=== PATIENT | male | born 1940 | race Caucasian/White ===

== ENCOUNTER 2017-05-17 08:30 | Emergency (ER) | payer OTHER ==
[~2017-05-17] VITALS: Ht 177.8 cm; Wt 114.0 kg
[~2017-05-17 08:30] MED LIST: 1-ME1LIQ PO; LISI-366 PO; MECL25 PO; ONDA1TAB16 PO; OXYB5TAB PO; PRAV40TA2 PO
[2017-05-17 08:34] VITALS: BP 214/96; PULSE 71; RESP 20; TEMP 98.5; O2SAT 95
[2017-05-17] MEDS ORDERED: GLIP5TAB8 PO (08:42)
[2017-05-17] MEDS ORDERED: METF1000 PO (08:42)
[2017-05-17] MEDS ORDERED: TRAZ50TA12 PO (08:42)
[2017-05-17] MEDS ORDERED: DULO1CAP PO (08:42)
[2017-05-17 08:45] VITALS: BP 196/123; PULSE 74; RESP 20; O2SAT 95
[2017-05-17] MEDS ORDERED: VENTAER INH (08:48)
[2017-05-17] MEDS ORDERED: SYMB160A INH (08:48)
[2017-05-17 08:59] VITALS: O2SAT 95
[2017-05-17] MEDS ORDERED: SODIUM CHLORIDE 0.9% FLUSH 10 ML FLUSH IVF PRN (09:00)
--- NOTE | 2017-05-17 09:02 | PD ---
HPI . Shortness of breath Chief Complaint: Respiratory Distress Time Seen by Provider: 08:51 Travel History International Travel<30 days: No Contact w/Intl Traveler<30days: No Traveled to known affect area: No History of Present Illness HPI This patient presents along with his with the chief complaint of shortness of breath. He has COPD. The reports increased dyspnea for the last month. It seems to have been worse for the last few days. He had a particularly bad night last night which is what prompted their visit to us this morning. He has not been running a fever. He has not had a significant cough or sputum production. He has peripheral edema but it is unchanged from previous. His dyspnea is exacerbated by the supine position and is somewhat relieved by sitting upright. Symptoms are moderate. PFSH Past Medical History Cancer: Yes (PROSTATE CANCER) Cardiovascular Problems: Yes High Cholesterol: Yes COPD: Yes Diabetes: Yes Patient Takes Glucophage: Yes Diminished Hearing: Yes (HARD OF HEARING) Hypertension: Yes Respiratory: Yes Immunizations Current: Yes Social History Alcohol Use: No Tobacco Use: Yes (AT LEAST 1 PPD) Substance Use: No Allergies-Medications (Allergen,Severity, Reaction): Coded Allergies: No Known Allergies (Verified Adverse Reaction, Unknown, 05/17/17) Reported Meds & Prescriptions Reported Meds & Active Scripts Active Reported Ventolin Hfa 18 GM Inh (Albuterol Sulfate) 90 Mcg/Act Aer 2 Puff INH Q4-6H PRN Symbicort Inh (Budesonide/Formoterol Fumarate) 160-4.5 Mcg/Act Aero 1 Puff INH Q12HR Duloxetine DR (Duloxetine HCl) 20 Mg Capdr 20 Mg PO DAILY Trazodone (Trazodone HCl) 50 Mg Tab 50 Mg PO HS Glipizide 5 Mg Tab 5 Mg PO BIDAC Take 30 minutes before a meal Metformin (Metformin HCl) 1,000 Mg Tab 1,000 Mg PO BIDPC Review of Systems Except as stated in HPI: all other systems reviewed are Neg General / Constitutional: No: Fever, Chills Cardiovascular: No: Chest Pain or Discomfort Respiratory: Positive: Shortness of Breath, No: Cough Physical Exam Narrative GENERAL: Awake and alert and in no acute distress. Very hard of hearing. SKIN: Warm and dry. Normal color. HEAD: Normocephalic/atraumatic. EYES: Pupils are equal. Extraocular movements are intact. NECK: Normal range of motion. CARDIOVASCULAR: Regular rate and rhythm. Heart sounds are normal. RESPIRATORY: Nonlabored respirations. Oxygen saturation on room air is 95-97%. He had bibasilar rales. No wheezing heard. Good air movement throughout. MUSCULOSKELETAL: Atraumatic. One plus pretibial pitting edema. NEUROLOGICAL: Nonfocal. PSYCHIATRIC: Appropriate mood and affect. Data Data Last Documented VS Vital Signs Date Time Temp Pulse Resp B/P (MAP) Pulse Ox O2 Delivery O2 Flow Rate FiO2 05/17/17 10:15 75 20 208/102 (137) 95 Room Air 05/17/17 08:34 98.5 Orders Orders Complete Blood Count With Diff (05/17/17 08:51) Basic Metabolic Panel (Bmp) (05/17/17 08:51) B-Type Natriuretic Peptide (05/17/17 08:51) Act Partial Throm Time (Ptt) (05/17/17 08:51) Prothrombin Time / Inr (Pt) (05/17/17 08:51) Iv Access Insert/Monitor (05/17/17 08:51) Electrocardiogram (05/17/17 08:51) Ecg Monitoring (05/17/17 08:51) Oximetry (05/17/17 08:51) Chest, Single Ap (05/17/17 08:51) Sodium Chloride 0.9% Flush (Ns Flush) (05/17/17 09:00) Furosemide Inj (Lasix Inj) (05/17/17 09:45) Nitroglycerin 2% Oint (Nitroglycerin 2% (05/17/17 09:45) Labs Laboratory Tests Test 05/17/17 08:55 White Blood Count 8.4 TH/MM3 Red Blood Count 4.87 MIL/MM3 Hemoglobin 14.0 GM/DL Hematocrit 45.1 % Mean Corpuscular Volume 92.5 FL Mean Corpuscular Hemoglobin 28.8 PG Mean Corpuscular Hemoglobin Concent 31.1 % Red Cell Distribution Width 15.7 % Platelet Count 228 TH/MM3 Mean Platelet Volume 8.9 FL Neutrophils (%) (Auto) 77.4 % Lymphocytes (%) (Auto) 14.8 % Monocytes (%) (Auto) 6.7 % Eosinophils (%) (Auto) 0.8 % Basophils (%) (Auto) 0.3 % Neutrophils # (Auto) 6.4 TH/MM3 Lymphocytes # (Auto) 1.3 TH/MM3 Monocytes # (Auto) 0.6 TH/MM3 Eosinophils # (Auto) 0.1 TH/MM3 Basophils # (Auto) 0.0 TH/MM3 CBC Comment AUTO DIFF Differential Comment AUTO DIFF CONFIRMED Prothrombin Time 10.7 SEC Prothromb Time International Ratio 1.1 RATIO Activated Partial Thromboplast Time 28.2 SEC Blood Urea Nitrogen 12 MG/DL Creatinine 0.97 MG/DL Random Glucose 96 MG/DL Calcium Level 8.7 MG/DL Sodium Level 136 MEQ/L Potassium Level 3.8 MEQ/L Chloride Level 100 MEQ/L Carbon Dioxide Level 27.7 MEQ/L Anion Gap 8 MEQ/L Estimat Glomerular Filtration Rate 75 ML/MIN B-Type Natriuretic Peptide 179 PG/ML MDM Medical Decision Making Medical Screen Exam Complete: Yes Emergency Medical Condition: Yes Interpretation(s) EKG shows atrial fibrillation with a controlled rate at 77. No ST segment elevation or depression. Differential Diagnosis Differential diagnosis of dyspnea includes but is not limited to congestive heart failure, pneumonia, wheezing, pneumothorax, pulmonary embolism, COPD exacerbation Narrative Course This patient presents with shortness of breath. He has a history of COPD., His lungs sound pretty clear. He has good air movement throughout. He has by basilar rales. Oxygen was offered but declined. Chest x-ray has been ordered to look for pulmonary infiltrate. BNP and chest x- ray are pending to look for CHF. CBC & BMP Diagram 05/17/17 08:55 Calcium Level 8.7 BNP 179 Last Impressions Chest X-Ray 05/17/17 0851 Signed Impressions: Service Date/Time: Wednesday, May 17, 2017 09:12 - CONCLUSION: Cardiomegaly with interstitial pulmonary congestion and small bilateral effusions Basilar airspace disease greater on the left. Ottoniel Sesay MD The patient was subsequently given Lasix and Nitropaste. He is very insistent that he be allowed to go home. His oxygen saturation on room air has remained in the mid 90s. I think that it is safe for him to go home. I have given him strict instructions to return here if his breathing gets worse again. I will discharge him with prescriptions for Lasix and nitroglycerin patches. I will also give him a prescription for supplemental potassium. He has normal renal function. In addition, this patient is not on an antihypertensive. I have queried up-to-date regarding initial treatment for congestive heart failure. UpToDate recommends an TAVON inhibitor and a beta dayanna. So, I have also prescribed lisinopril and Lopressor. Critical Care Narrative Aggregate critical care time was 35 minutes. Time to perform other separately billable procedures was not included in the critical care time. My time did not include minutes spent treating any other patients simultaneously or on activities that did not directly contribute to the patient's treatment. The services I provided to this patient were to treat and/or prevent clinically significant deterioration due to dyspnea I provided critical care services requiring my management, as noted below: Chart data review, documentation time, medication orders and management, vital sign assessments/reviewing monitor data, ordering and reviewing lab tests, ordering and interpreting/reviewing x-rays and diagnostic studies, care of the patient and discussion of the patient with the admitting physicians Diagnosis Primary Impression: Dyspnea Qualified Codes: R06.00 - Dyspnea, unspecified Additional Impressions: Pulmonary vascular congestion Bilateral pleural effusion Hypertension Qualified Codes: I10 - Essential (primary) hypertension Patient Instructions: General Instructions, Heart Failure (DC) Med/Other Pt SpecificInfo: Prescription(s) given Scripts Metoprolol Tartrate (Lopressor) 50 Mg Tab 50 MG PO DAILY, #30 TAB 0 Refills Prov: Zoë Harris MD 05/17/17 Lisinopril (Lisinopril) 10 Mg Tab 10 MG PO DAILY, #30 TAB 0 Refills Prov: Zoë Harris MD 05/17/17 Nitroglycerin Patch 24 HR (Nitro-Dur Patch 24 HR) 0.4 Mg/Hr Patch 0.4 MG T-DERMAL DAILY for Shortness of Breath, #30 PATCH 0 Refills Prov: Zoë Harris MD 05/17/17 Potassium Chloride ER (Potassium Chloride ER) 20 Meq Tab 20 MEQ PO DAILY for Electrolyte Replacement, #30 TAB 0 Refills Prov: Zoë Harris MD 05/17/17 Furosemide (Lasix) 40 Mg Tab 40 MG PO DAILY, #30 TAB 0 Refills Prov: Zoë Harris MD 05/17/17 Disposition: 01 DISCHARGE HOME Condition: Stable Zoë Harris MD May 17, 2017 09:02
[2017-05-17 09:22] LABS: INTERNATIONAL NORMALIZED RATIO 1.1 RATIO; PROTHROMBIN TIME - PATIENT 10.7 SEC (9.8-11.6)
[2017-05-17 09:33] VITALS: BP 175/121; PULSE 73; RESP 20; O2SAT 95
--- NOTE | 2017-05-17 09:35 | RADRPT ---
EXAM DATE/TIME: 05/17/2017 09:12 [facility] COMPARISON: No previous studies available for comparison. INDICATIONS : Short of breath. MEDICAL HISTORY : Chronic obstructive pulmonary disease. Hypertension Diabetes mellitus type II. Prostate Cancer, s moker SURGICAL HISTORY : None. ENCOUNTER: Initial ACUITY: 3 days PAIN SCORE: 0/10 LOCATION: Bilateral chest FINDINGS: The heart is moderately enlarged. Interstitial prominence is noted throughout both lungs especially i n the bases. There are small bilateral effusions and mild basilar airspace disease. CONCLUSION: Cardiomegaly with interstitial pulmonary congestion and small bilateral effusions Basilar airspace disease greater on the left. Ottoniel Sesay MD on May 17, 2017 at 9:32 Board Certified Radiologist. This report was verified electronically.
[2017-05-17 09:39] LABS: AUTOMATED NEUTROPHIL # 6.4 TH/MM3 (1.8-7.7); BASOPHIL % 0.3 % (0.0-2.0); EOSINOPHIL # 0.1 TH/MM3 (0-0.4); EOSINOPHIL % 0.8 % (0.0-4.0); HEMATOCRIT 45.1 % (39.0-51.0); LYMPH % 14.8 % (9.0-44.0); LYMPHOCYTE # 1.3 TH/MM3 (1.0-4.8); MEAN CELL VOLUME 92.5 FL (80.0-100.0); MEAN CORPUSCULAR HEMOGLOBIN 28.8 PG (27.0-34.0); MEAN CORPUSCULAR HGB CONC 31.1 % (32.0-36.0); MEAN PLATELET VOLUME 8.9 FL (7.0-11.0); MONO % 6.7 % (0.0-8.0); MONOCYTE # 0.6 TH/MM3 (0-0.9); NEUT % 77.4 % (16.0-70.0); PLATELET COUNT 228 TH/MM3 (150-450); RED BLOOD COUNT 4.87 MIL/MM3 (4.50-5.90); RED CELL DISTRIBUTION WIDTH 15.7 % (11.6-17.2); WHITE BLOOD COUNT 8.4 TH/MM3 (4.0-11.0)
[2017-05-17] MEDS ORDERED: NITROGLYCERIN 2% OINT 1 GM PACKET TOPICAL ONE (09:45)
[2017-05-17] MEDS ORDERED: FUROSEMIDE 40 MG/4 ML VIAL IV PUSH ONE (09:45)
[2017-05-17 09:51] LABS: CALCIUM 8.7 MG/DL (8.5-10.1)
[2017-05-17 09:52] LABS: BICARBONATE 27.7 MEQ/L (21.0-32.0)
[2017-05-17 09:55] LABS: CREATININE 0.97 MG/DL (0.60-1.30)
[2017-05-17 10:15] VITALS: BP 208/102; PULSE 75; RESP 20; O2SAT 95
[2017-05-17] MEDS ORDERED: NITR0.4D T-DERMAL (10:30)
[2017-05-17] MEDS ORDERED: FURO1TAB60 PO (10:30)
[2017-05-17] MEDS ORDERED: METO-309 PO (10:30)
[2017-05-17] MEDS ORDERED: POTA-163 PO (10:30)
[2017-05-17] MEDS ORDERED: LISI10TA3 PO (10:30)
--- NOTE | 2017-05-17 18:52 | EKG ---
Date Performed: 05/17/2017 Time Performed: 08:50:06 PTAGE: 76 years EKG: ATRIAL FIBRILLATION NONSPECIFIC ST & T-WAVE ABNORMALITY Compared to previous tracing, the p atient is now in atrial fibrillation ABNORMAL RHYTHM ECG PREVIOUS TRACING : 07/01/2012 11.56 DOCTOR: Mary Vásquez Interpretating Date/Time 05/17/2017 18:51:21
== END 2017-05-17 11:01 | disposition home or self-care (01) ==
LOC: PHED 08:30
DX: R06.00 Dyspnea, unspecified (principal); R09.89 Other specified symptoms and signs involving the circulatory and respiratory systems; J90 Pleural effusion, not elsewhere classified; I48.91 Unspecified atrial fibrillation; I10 Essential (primary) hypertension; J44.9 Chronic obstructive pulmonary disease, unspecified; E11.9 Type 2 diabetes mellitus without complications; Z72.0 Tobacco use
CPT/HCPCS: 71045; 80048; 83880; 85025; 85610; 85730; 93005; 96374; 99285; J1940

== ENCOUNTER 2017-05-20 13:02 | Inpatient (IN) | payer OTHER, MEDICARE ==
[~2017-05-20] VITALS: Ht 177.8 cm; Wt 110.4 kg
[2017-05-20] VITALS (10 sets, daily range): BP systolic 138–199; BP diastolic 67–122; PULSE 2–74; RESP 16–24; TEMP 97.4; O2SAT 90–98
[~2017-05-20 13:02] MED LIST changes: +DULO1CAP PO; +FURO1TAB60 PO; +GLIP5TAB8 PO; +LISI10TA3 PO; +METF1000 PO; +METO-309 PO; +NITR0.4D T-DERMAL; +POTA-163 PO; +SYMB160A INH; +TRAZ50TA12 PO; +VENTAER INH
[2017-05-20] MEDS ORDERED: IPRAAER INH (14:53)
[2017-05-20] MEDS ORDERED: METO50TA PO (14:53)
[2017-05-20] MEDS ORDERED: LISI-515 PO (14:53)
--- NOTE | 2017-05-20 14:59 | PD ---
HPI Chief Complaint: Respiratory Symptoms Time Seen by Provider: 14:35 Travel History International Travel<30 days: No Contact w/Intl Traveler<30days: No Traveled to known affect area: No History of Present Illness HPI 76-year-old male is complaining of shortness of breath. He's been having trouble breathing for several days. He does smoke cigarettes. He is currently smokes about 3 cigarettes a day. He has a history of COPD He was here a few days ago and diagnosed with possible CHF. He has no history of myocardial infarction. He [facility] and he went there yesterday and today adjusted some medications. He is not having any chest pain. His says he has had some slurred speech for the last few weeks. He is very hard of hearing. He has not been able to lay flat. 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) Respiratory: Yes Immunizations Current: Yes Tetanus Vaccination: > 5 Years Influenza Vaccination: No Past Surgical History Eye Surgery: Yes Genitourinary Surgery: Yes (PROSTATE) Social History Alcohol Use: No Tobacco Use: Yes ( 3 CIGS NOW AT LEAST 2 PPD) Substance Use: No Allergies-Medications (Allergen,Severity, Reaction): Coded Allergies: No Known Allergies (Verified Adverse Reaction, Unknown, 05/21/17) Reported Meds & Prescriptions Reported Meds & Active Scripts Active Lasix (Furosemide) 40 Mg Tab 40 Mg PO DAILY Reported Combivent Respimat Inh (Ipratropium-Albuterol Inh) 20-100 Skilled Nursing/Act Aero 1 Puff INH TID Metoprolol Tartrate 50 Mg Tab 50 Mg PO BID Lisinopril 20 Mg Tab 20 Mg PO DAILY Symbicort Inh (Budesonide/Formoterol Fumarate) 160-4.5 Mcg/Act Aero 1 Puff INH Q12HR Duloxetine DR (Duloxetine HCl) 20 Mg Capdr 20 Mg PO DAILY Trazodone (Trazodone HCl) 50 Mg Tab 25 Mg PO HS Glipizide 5 Mg Tab 5 Mg PO BIDAC Take 30 minutes before a meal Metformin (Metformin HCl) 1,000 Mg Tab 1,000 Mg PO BIDPC Review of Systems General / Constitutional: No: Fever, Chills Eyes: No: Diploplia, Blurred Vision HENT: No: Headaches, Vertigo Cardiovascular: Positive: Edema, No: Chest Pain or Discomfort, Palpitations Respiratory: Positive: Cough, Shortness of Breath Gastrointestinal: No: Nausea, Vomiting Musculoskeletal: No: Myalgias, Arthralgias Skin: No Rash, No Itching Neurologic: No: Weakness, Dizziness Endocrine: No: Heat Intolerance, Cold Intolerance Hematologic/Lymphatic: No: Easy Bruising Physical Exam Narrative GENERAL: Well-developed male SKIN: Focused skin assessment warm/dry. HEAD: Atraumatic. Normocephalic. EYES: Pupils equal and round. No scleral icterus. No injection or drainage. ENT: No nasal bleeding or discharge. Mucous membranes pink and moist. NECK: Trachea midline. No JVD. CARDIOVASCULAR: Regular rate and rhythm. No murmur appreciated. RESPIRATORY: No accessory muscle use. He does have scattered rales posteriorly and occasional rhonchi GASTROINTESTINAL: Abdomen soft, non-tender, nondistended. Hepatic and splenic margins not palpable. MUSCULOSKELETAL: No obvious deformities. No clubbing. No cyanosis. No edema. NEUROLOGICAL: Awake and alert. No obvious cranial nerve deficits. Motor grossly within normal limits. Speech is somewhat thick but not obviously slurred. He is very hard of hearing and does not communicate PSYCHIATRIC: Appropriate mood and affect; insight and judgment normal. Data Data Last Documented VS Vital Signs Date Time Temp Pulse Resp B/P (MAP) Pulse Ox O2 Delivery O2 Flow Rate FiO2 05/20/17 16:50 54 22 195/87 (123) 96 Nasal Cannula 2.00 05/20/17 13:14 97.4 Orders Orders Electrocardiogram (05/20/17 14:46) Complete Blood Count With Diff (05/20/17 14:46) Comprehensive Metabolic Panel (05/20/17 14:46) Troponin I (05/20/17 14:46) B-Type Natriuretic Peptide (05/20/17 14:46) Prothrombin Time / Inr (Pt) (05/20/17 14:46) Act Partial Throm Time (Ptt) (05/20/17 14:46) Urinalysis - C+S If Indicated (05/20/17 14:46) Magnesium (Mg) (05/20/17 14:46) Thyroid Stimulating Hormone (05/20/17 14:46) Chest, Single Ap (05/20/17 14:46) Nitroglycerin 2% Oint (Nitroglycerin 2% (05/20/17 15:00) Furosemide Inj (Lasix Inj) (05/20/17 15:00) Albuterol-Ipratropium Neb (Duoneb Neb) (05/20/17 15:00) Ct Brain W/O Iv Contrast(Rout) (05/20/17 15:34) Hydralazine Inj (Apresoline Inj) (05/20/17 17:30) Aspirin (Aspirin) (05/20/17 17:45) Mri Brain W&W/O Contrast (05/20/17 ) Mra Carotids W Contrast (05/20/17 ) Admit Order (Ed Use Only) (05/20/17 17:37) Consult Neurology (05/20/17 ) Labs Laboratory Tests Test 05/20/17 14:45 05/20/17 15:30 White Blood Count 9.8 TH/MM3 Red Blood Count 4.75 MIL/MM3 Hemoglobin 14.0 GM/DL Hematocrit 43.8 % Mean Corpuscular Volume 92.1 FL Mean Corpuscular Hemoglobin 29.4 PG Mean Corpuscular Hemoglobin Concent 31.9 % Red Cell Distribution Width 15.8 % Platelet Count 241 TH/MM3 Mean Platelet Volume 8.8 FL Neutrophils (%) (Auto) 71.9 % Lymphocytes (%) (Auto) 16.6 % Monocytes (%) (Auto) 8.9 % Eosinophils (%) (Auto) 1.0 % Basophils (%) (Auto) 1.6 % Neutrophils # (Auto) 6.9 TH/MM3 Lymphocytes # (Auto) 1.6 TH/MM3 Monocytes # (Auto) 0.9 TH/MM3 Eosinophils # (Auto) 0.1 TH/MM3 Basophils # (Auto) 0.2 TH/MM3 CBC Comment AUTO DIFF Differential Comment AUTO DIFF CONFIRMED Prothrombin Time 10.7 SEC Prothromb Time International Ratio 1.1 RATIO Activated Partial Thromboplast Time 27.3 SEC Blood Urea Nitrogen 18 MG/DL Creatinine 1.20 MG/DL Random Glucose 101 MG/DL Total Protein 7.3 GM/DL Albumin 3.3 GM/DL Calcium Level 8.6 MG/DL Magnesium Level 2.4 MG/DL Alkaline Phosphatase 109 U/L Aspartate Amino Transf (AST/SGOT) 21 U/L Alanine Aminotransferase (ALT/SGPT) 33 U/L Total Bilirubin 0.6 MG/DL Sodium Level 140 MEQ/L Potassium Level 3.5 MEQ/L Chloride Level 102 MEQ/L Carbon Dioxide Level 31.3 MEQ/L Anion Gap 7 MEQ/L Estimat Glomerular Filtration Rate 59 ML/MIN Hemoglobin A1c 6.6 % Troponin I LESS THAN 0.02 NG/ML B-Type Natriuretic Peptide 271 PG/ML Thyroid Stimulating Hormone 3rd Gen 1.330 uIU/ML Urine Color YELLOW Urine Turbidity CLEAR Urine pH 5.5 Urine Specific [place] 1.012 Urine Protein NEG mg/dL Urine Glucose (UA) NEG mg/dL Urine Ketones NEG mg/dL Urine Occult Blood NEG Urine Nitrite NEG Urine Bilirubin NEG Urine Leukocyte Esterase NEG Urine Squamous Epithelial Cells 0-5 /hpf Microscopic Urinalysis Comment CULT NOT INDICATED MDM Medical Decision Making Medical Screen Exam Complete: Yes Emergency Medical Condition: Yes Medical Record Reviewed: Yes Differential Diagnosis Differential includes COPD, CHF, CVA Narrative Course X-ray and lab work have been ordered. Disposition will be determined on the basis of these results by oncoming physician Erik Tapia MD May 20, 2017 14:59
[2017-05-20] MEDS ORDERED: RESP: ALBUTEROL 2.5 MG/IPRATROPIUM 0.5 MG NEB (SCH) NEB ONE (15:00)
[2017-05-20] MEDS ORDERED: FUROSEMIDE 40 MG/4 ML VIAL IV PUSH ONE (15:00)
[2017-05-20] MEDS ORDERED: NITROGLYCERIN 2% OINT 1 GM PACKET TOPICAL ONE (15:00)
[2017-05-20 15:18] LABS: AUTOMATED NEUTROPHIL # 6.9 TH/MM3 (1.8-7.7); BASOPHIL # 0.2 TH/MM3 (0-0.2); BASOPHIL % 1.6 % (0.0-2.0); EOSINOPHIL # 0.1 TH/MM3 (0-0.4); HEMATOCRIT 43.8 % (39.0-51.0); LYMPH % 16.6 % (9.0-44.0); LYMPHOCYTE # 1.6 TH/MM3 (1.0-4.8); MEAN CELL VOLUME 92.1 FL (80.0-100.0); MEAN CORPUSCULAR HEMOGLOBIN 29.4 PG (27.0-34.0); MEAN CORPUSCULAR HGB CONC 31.9 % (32.0-36.0); MEAN PLATELET VOLUME 8.8 FL (7.0-11.0); MONO % 8.9 % (0.0-8.0); MONOCYTE # 0.9 TH/MM3 (0-0.9); NEUT % 71.9 % (16.0-70.0); PLATELET COUNT 241 TH/MM3 (150-450); RED BLOOD COUNT 4.75 MIL/MM3 (4.50-5.90); RED CELL DISTRIBUTION WIDTH 15.8 % (11.6-17.2); WHITE BLOOD COUNT 9.8 TH/MM3 (4.0-11.0)
[2017-05-20 15:46] LABS: CHLORIDE 102 MEQ/L (98-107); SODIUM (NA) 140 MEQ/L (136-145)
[2017-05-20 15:49] LABS: ALBUMIN 3.3 GM/DL (3.4-5.0); BICARBONATE 31.3 MEQ/L (21.0-32.0); CALCIUM 8.6 MG/DL (8.5-10.1)
[2017-05-20 15:50] LABS: BLOOD UREA NITROGEN 18 MG/DL (7-18); GLUCOSE,RANDOM 101 MG/DL (74-106); MAGNESIUM 2.4 MG/DL (1.5-2.5)
[2017-05-20 15:51] LABS: INTERNATIONAL NORMALIZED RATIO 1.1 RATIO; PROTHROMBIN TIME - PATIENT 10.7 SEC (9.8-11.6)
[2017-05-20 15:52] LABS: ALT (GPT) 33 U/L (12-78)
[2017-05-20 15:53] LABS: BILIRUBIN, URINE NEG (NEG); BLOOD, URINE NEG (NEG); GLUCOSE,URINE NEG (NEG); KETONE, URINE NEG (NEG); NITRITE,URINE NEG (NEG); PH, URINE 5.5 (5.0-8.5); URINE LEUKOCYTE ESTERASE NEG (NEG)
[2017-05-20 15:53] LABS: AST (GOT) 21 U/L (15-37); GLOMERULAR FILTRATION RATE 59 ML/MIN (>89)
[2017-05-20 15:54] LABS: TOTAL BILIRUBIN ADULT 0.6 MG/DL (0.2-1.0); TOTAL PROTEIN 7.3 GM/DL (6.4-8.2)
[2017-05-20 15:55] LABS: ALKALINE PHOSPHATASE 109 U/L (45-117)
[2017-05-20 15:58] LABS: TROPONIN I LESS THAN 0.02 NG/ML (0.02-0.05)
[2017-05-20 16:02] LABS: URINE COLOR YELLOW (YELLW/STRAW)
[2017-05-20 16:03] LABS: SQUAMOUS EPITHELIAL CELL URINE 0-5 /hpf (0-5)
--- NOTE | 2017-05-20 16:06 | PD ---
Physical Exam Narrative Received sign out from previous team to follow up labs, CXR and admit. 76yo M with PMH of COPD, possible CHF, irregular heart rate since rheumatic fever as a child presents to the ED with persistent SOB for 5 days. Pt was seen here on 05/17/16 for this and impression of CHF and pt was discharge because he did not want to stay. He went to [facility] yesterday but still not feeling well. also noticed slurred speech for 3 days and it was worst today. Speech is a little better now. Also said he had some visual and auditory hallucinations for the last few days. Pt denies any chest pain, visual changes , n/v, abdominal pain, focal weakness or numbness. Pt was given duonebs, furosemide, nitroglycerin topical by previous team. Labs reviewed, no leukocytosis. BNP mildly elevated at 271. Troponin negative. TSH normal. UA negative. CXR showed mild congestive heart failure. Pt with lower extremity edema and bibasilar crackles. BP is still elevated at 195/87 so hydralazine ordered to lower BP since HR is in the 50s. EKG showed afib in the 50s. CT brain showed low attenuation left frontal lobe and left basal ganglia could be acute/subacute infarct. Recommend contrasted MRI. MRI ordered. Physical exam showed mild dysarthria. Muscle strength 5/5 in all extremities. Sensation intact. NIH stroke scale of 1. Pt given aspirin. Pt admitted for CVA and CHF exacerbation. Data Data Last Documented VS Vital Signs Date Time Temp Pulse Resp B/P (MAP) Pulse Ox O2 Delivery O2 Flow Rate FiO2 05/20/17 16:50 54 22 195/87 (123) 96 Nasal Cannula 2.00 05/20/17 13:14 97.4 Orders Orders Electrocardiogram (05/20/17 14:46) Complete Blood Count With Diff (05/20/17 14:46) Comprehensive Metabolic Panel (05/20/17 14:46) Troponin I (05/20/17 14:46) B-Type Natriuretic Peptide (05/20/17 14:46) Prothrombin Time / Inr (Pt) (05/20/17 14:46) Act Partial Throm Time (Ptt) (05/20/17 14:46) Urinalysis - C+S If Indicated (05/20/17 14:46) Magnesium (Mg) (05/20/17 14:46) Thyroid Stimulating Hormone (05/20/17 14:46) Chest, Single Ap (05/20/17 14:46) Nitroglycerin 2% Oint (Nitroglycerin 2% (05/20/17 15:00) Furosemide Inj (Lasix Inj) (05/20/17 15:00) Albuterol-Ipratropium Neb (Duoneb Neb) (05/20/17 15:00) Ct Brain W/O Iv Contrast(Rout) (05/20/17 15:34) Hydralazine Inj (Apresoline Inj) (05/20/17 17:30) Aspirin (Aspirin) (05/20/17 17:45) Mri Brain W&W/O Contrast (05/20/17 ) Mra Carotids W Contrast (05/20/17 ) Labs Laboratory Tests Test 05/20/17 14:45 05/20/17 15:30 White Blood Count 9.8 TH/MM3 Red Blood Count 4.75 MIL/MM3 Hemoglobin 14.0 GM/DL Hematocrit 43.8 % Mean Corpuscular Volume 92.1 FL Mean Corpuscular Hemoglobin 29.4 PG Mean Corpuscular Hemoglobin Concent 31.9 % Red Cell Distribution Width 15.8 % Platelet Count 241 TH/MM3 Mean Platelet Volume 8.8 FL Neutrophils (%) (Auto) 71.9 % Lymphocytes (%) (Auto) 16.6 % Monocytes (%) (Auto) 8.9 % Eosinophils (%) (Auto) 1.0 % Basophils (%) (Auto) 1.6 % Neutrophils # (Auto) 6.9 TH/MM3 Lymphocytes # (Auto) 1.6 TH/MM3 Monocytes # (Auto) 0.9 TH/MM3 Eosinophils # (Auto) 0.1 TH/MM3 Basophils # (Auto) 0.2 TH/MM3 CBC Comment AUTO DIFF Differential Comment AUTO DIFF CONFIRMED Prothrombin Time 10.7 SEC Prothromb Time International Ratio 1.1 RATIO Activated Partial Thromboplast Time 27.3 SEC Blood Urea Nitrogen 18 MG/DL Creatinine 1.20 MG/DL Random Glucose 101 MG/DL Total Protein 7.3 GM/DL Albumin 3.3 GM/DL Calcium Level 8.6 MG/DL Magnesium Level 2.4 MG/DL Alkaline Phosphatase 109 U/L Aspartate Amino Transf (AST/SGOT) 21 U/L Alanine Aminotransferase (ALT/SGPT) 33 U/L Total Bilirubin 0.6 MG/DL Sodium Level 140 MEQ/L Potassium Level 3.5 MEQ/L Chloride Level 102 MEQ/L Carbon Dioxide Level 31.3 MEQ/L Anion Gap 7 MEQ/L Estimat Glomerular Filtration Rate 59 ML/MIN Troponin I LESS THAN 0.02 NG/ML B-Type Natriuretic Peptide 271 PG/ML Thyroid Stimulating Hormone 3rd Gen 1.330 uIU/ML Urine Color YELLOW Urine Turbidity CLEAR Urine pH 5.5 Urine Specific [place] 1.012 Urine Protein NEG mg/dL Urine Glucose (UA) NEG mg/dL Urine Ketones NEG mg/dL Urine Occult Blood NEG Urine Nitrite NEG Urine Bilirubin NEG Urine Leukocyte Esterase NEG Urine Squamous Epithelial Cells 0-5 /hpf Microscopic Urinalysis Comment CULT NOT INDICATED MDM Supervised Visit with ROSIO: No Interpretation(s) EKG: Afib at 50bpm. Normal axis. Lexie Ingram DO May 20, 2017 16:06
--- NOTE | 2017-05-20 16:33 | RADRPT ---
EXAM DATE/TIME: 05/20/2017 16:02 [facility] COMPARISON: CHEST SINGLE AP, May 17, 2017, 9:12. INDICATIONS : Short of breath. MEDICAL HISTORY : Chronic obstructive pulmonary disease. Hypertension Diabetes mellitus type II. Prostate Cancer, smoke r SURGICAL HISTORY : None. ENCOUNTER: Initial ACUITY: 1 day PAIN SCORE: 0/10 LOCATION: Bilateral chest FINDINGS: A single AP erect portable view of the chest was obtained and again demonstrates moderate cardiomegal y. Hazy perihilar and bibasilar opacities are noted blunting of the right costophrenic angle. Finding s are not significantly changed. The bony thorax is intact. CONCLUSION: No significant change. Findings remain most characteristic of mild congestive heart f ailure. James More MD on May 20, 2017 at 16:30 Board Certified Radiologist. This report was verified electronically.
--- NOTE | 2017-05-20 16:42 | RADRPT ---
EXAM DATE/TIME: 05/20/2017 16:21 [facility] COMPARISON: No previous studies available for comparison. INDICATIONS : Slurred speech, altered mental status x 2 weeks. Evaluate for cerebrovascular accident. RADIATION DOSE: 60.89 CTDIvol (mGy) ; Patient motion MEDICAL HISTORY : Chronic obstructive pulmonary disease. Diabetes mellitus type 2. Congestive heart failure.Hypertensio n. Prostate cancer. SURGICAL HISTORY : None. ENCOUNTER: Initial ACUITY: 2 weeks PAIN SCALE: 0/10 LOCATION: cranial TECHNIQUE: Multiple contiguous axial images were obtained of the head. Using automated exposure control and adj ustment of the mA and/or kV according to patient size, radiation dose was kept as low as reasonably a chievable to obtain optimal diagnostic quality images. DICOM format image data is available electro nically for review and comparison. FINDINGS: CEREBRUM: Area of low attenuation left frontal lobe and basal ganglia on the left. Areas of low-attenuation thr oughout the white matter. Old lacunar infarcts in the basal ganglia. The ventricles are normal for ag e. No evidence of midline shift, mass lesion or hemorrhage. No extra-axial fluid collections are se en. POSTERIOR FOSSA: The cerebellum and brainstem are intact. The 4th ventricle is midline. The cerebellopontine angle i s unremarkable. EXTRACRANIAL: The visualized portion of the orbits is intact. SKULL: The calvaria is intact. No evidence of skull fracture. CONCLUSION: 1. There is a low attenuation left frontal lobe and left basal ganglia could be acute/subacute infarc t. Contrasted MRI recommended. 2. Nonspecific white matter changes. Domenico Winkler MD on May 20, 2017 at 16:38 Board Certified Radiologist. This report was verified electronically.
[2017-05-20] MEDS ORDERED: hydrALAZINE HCL 20 MG/ML VIAL IV PUSH ONE (17:30)
[2017-05-20] MEDS ORDERED: ASPIRIN 325 MG TAB PO ONE (17:45)
[2017-05-20] MEDS ORDERED: DEXTROSE 50% IN WATER 50 ML VIAL(D50) IV PUSH PRN (18:45)
[2017-05-20] MEDS ORDERED: ENALAPRILAT 1.25 MG/ML VIAL IV PUSH PRN (18:45)
[2017-05-20] MEDS ORDERED: RESP: ALBUTEROL 1.25 MG/3 ML NEB (PRN) NEB (18:45)
[2017-05-20] MEDS ORDERED: GLUCAGON 1 MG/ML VIAL OTHER PRN (18:45)
--- NOTE | 2017-05-20 19:00 | HHI.HP ---
[facility] Service [facility] Admission Diagnosis CVA, CHF exacerbation Diagnoses: Chief Complaint: Shortness of breath Travel History International Travel<30 Days: No Contact w/Intl Traveler <30 Da: No Traveled to Known Affected Are: No History of Present Illness This is a 76-year-old male patient with a known medical history of hypertension , COPD, prostate cancer, type 2 diabetes and hyperlipidemia who presented to the ED with increasing shortness of breath and neurological complaints. Patient is lying in bed with apparent shortness of breath and accessory muscle use, at bedside assisting with obtaining of history. Supposedly patient presented to the ED three days ago for complaints of shortness of breath was sent home with Lasix and nitroglycerin. Per , patient has increasingly become short of breath with activity, has overall been more fatigued and sleeping more. States he's been more unstable on his feet. Also complains of frequent hallucinations, seeing and hearing music. Patient does not use home O2. Does have a history of COPD, does admit to smoking five cigarettes per day. Patient goes [facility] [place] [facility] for [facility]. Denies any recent illness including fever, chills, abdominal pain, nausea, vomiting, diarrhea or dysuria. Patient's appetite has been good, although states that she has noticed some coughing with eating. BNP on admission is 271. Chest x-ray reviewed showing mild CHF. Head CT reviewed showing left frontal lobe and left basal ganglia could be acute versus subacute infarct, MRI ordered and pending. Review of Systems Constitutional: COMPLAINS OF: Fatigue, DENIES: Fever, Chills Eyes: DENIES: Blurred vision, Diplopia Respiratory: COMPLAINS OF: Wheezing, Shortness of breath, DENIES: Cough, Sputum production Cardiovascular: DENIES: Chest pain, Palpitations Gastrointestinal: DENIES: Abdominal pain, Black stools, Bloody stools, Constipation, Diarrhea, Nausea, Vomiting Neurologic: COMPLAINS OF: Abnormal gait (unsteady gait), Poor Balance Psychiatric: DENIES: Anxiety Except as stated in HPI: all other systems reviewed are Neg Past Family Social History Past Medical History History of prostate cancer Hypercholesterolemia COPD Type 2 diabetes Rheumatic fever and scarlet fever as a child Hypertension Tobacco abuse Past Surgical History Prostate removal Reported Medications Active Reported Combivent Respimat Inh (Ipratropium-Albuterol Inh) 20-100 Chcf/Act Aero 1 Puff INH TID Metoprolol Tartrate 50 Mg Tab 50 Mg PO BID Lisinopril 20 Mg Tab 20 Mg PO DAILY Symbicort Inh (Budesonide/Formoterol Fumarate) 160-4.5 Mcg/Act Aero 1 Puff INH Q12HR Duloxetine DR (Duloxetine HCl) 20 Mg Capdr 20 Mg PO DAILY Trazodone (Trazodone HCl) 50 Mg Tab 25 Mg PO HS Glipizide 5 Mg Tab 5 Mg PO BIDAC Take 30 minutes before a meal Metformin (Metformin HCl) 1,000 Mg Tab 1,000 Mg PO BIDPC Allergies: Coded Allergies: No Known Allergies (Verified Adverse Reaction, Unknown, 05/20/17) Family History Paternal and maternal medical history significant for hypertension, [place] and stroke. Social History Does admit to smoking five cigarettes per day for the last sixty years. Denies any alcohol use denies any illicit drug use. Physical Exam Vital Signs Vital Signs Date Time Temp Pulse Resp B/P (MAP) Pulse Ox O2 Delivery O2 Flow Rate FiO2 05/20/17 18:07 54 24 138/68 (91) 98 Nasal Cannula 2.00 05/20/17 16:50 54 22 195/87 (123) 96 Nasal Cannula 2.00 05/20/17 15:51 55 22 189/122 (144) 97 Nasal Cannula 2.00 05/20/17 14:36 54 22 195/100 (131) 90 Nasal Cannula 2.00 05/20/17 14:30 55 90 Nasal Cannula 2.00 05/20/17 13:14 97.4 55 16 199/88 (125) 96 Physical Exam GENERAL: This is a well-nourished, well-developed elderly male patient, lying in bed on supplemental O2, with apparent shortness of breath. Use of a sensory muscle use. SKIN: No rashes, ecchymoses or lesions. Warm and dry. HEAD: Atraumatic. Normocephalic. EYES: Pupils equal round and reactive. Extraocular motions intact. No scleral icterus. No injection or drainage. ENT: Nose without bleeding, purulent drainage or septal hematoma. Throat without erythema, tonsillar hypertrophy or exudate. Uvula midline. Airway patent. NECK: Trachea midline. No JVD. Supple. CARDIOVASCULAR: Regular rate and rhythm without murmurs, gallops, or rubs. RESPIRATORY: Severely Diminished breath sounds throughout. No wheezes, rales, or rhonchi. GASTROINTESTINAL: Abdomen soft, non-tender, nondistended. No guarding. Active bowel sounds 4 quadrants MUSCULOSKELETAL: Extremities without clubbing, cyanosis. Bilateral lower extremity edema, 1+. DP pulses present 2+. PVD noted. No joint tenderness, effusion, or edema noted. NEUROLOGICAL: Awake and alert. Cranial nerves II through XII intact. Motor and sensory grossly within normal limits. Five out of 5 muscle strength in all muscle groups. Normal speech. Laboratory Laboratory Tests Test 05/20/17 14:45 05/20/17 15:30 White Blood Count 9.8 Red Blood Count 4.75 Hemoglobin 14.0 Hematocrit 43.8 Mean Corpuscular Volume 92.1 Mean Corpuscular Hemoglobin 29.4 Mean Corpuscular Hemoglobin Concent 31.9 Red Cell Distribution Width 15.8 Platelet Count 241 Mean Platelet Volume 8.8 Neutrophils (%) (Auto) 71.9 Lymphocytes (%) (Auto) 16.6 Monocytes (%) (Auto) 8.9 Eosinophils (%) (Auto) 1.0 Basophils (%) (Auto) 1.6 Neutrophils # (Auto) 6.9 Lymphocytes # (Auto) 1.6 Monocytes # (Auto) 0.9 Eosinophils # (Auto) 0.1 Basophils # (Auto) 0.2 CBC Comment AUTO DIFF Differential Comment AUTO DIFF CONFIRMED Prothrombin Time 10.7 Prothromb Time International Ratio 1.1 Activated Partial Thromboplast Time 27.3 Blood Urea Nitrogen 18 Creatinine 1.20 Random Glucose 101 Total Protein 7.3 Albumin 3.3 Calcium Level 8.6 Magnesium Level 2.4 Alkaline Phosphatase 109 Aspartate Amino Transf (AST/SGOT) 21 Alanine Aminotransferase (ALT/SGPT) 33 Total Bilirubin 0.6 Sodium Level 140 Potassium Level 3.5 Chloride Level 102 Carbon Dioxide Level 31.3 Anion Gap 7 Estimat Glomerular Filtration Rate 59 Troponin I LESS THAN 0.02 B-Type Natriuretic Peptide 271 Thyroid Stimulating Hormone 3rd Gen 1.330 Urine Color YELLOW Urine Turbidity CLEAR Urine pH 5.5 Urine Specific [place] 1.012 Urine Protein NEG Urine Glucose (UA) NEG Urine Ketones NEG Urine Occult Blood NEG Urine Nitrite NEG Urine Bilirubin NEG Urine Leukocyte Esterase NEG Urine Squamous Epithelial Cells 0-5 Microscopic Urinalysis Comment CULT NOT INDICATED Result Diagram: 05/20/17 1445 05/20/17 1445 Imaging Last Impressions Head CT 05/20/17 1534 Signed Impressions: Service Date/Time: May 16:21 - CONCLUSION: 1. There is a low attenuation left frontal lobe and left basal ganglia could be acute/subacute infarct. Contrasted MRI recommended. 2. Nonspecific white matter changes. Domenico Winkler MD Chest X-Ray 05/20/17 1446 Signed Impressions: Service Date/Time: May 16:02 - CONCLUSION: No significant change. Findings remain most characteristic of mild congestive heart failure. James More MD Septic Shock Reassessment Septic shock perfusion: reassessment completed Caprini VTE Risk Assessment Caprini VTE Risk Assessment: Mod/High Risk (score >= 2) Caprini Risk Assessment Model Point Value = 1 Point Value = 2 Point Value = 3 Point Value = 5 Age 41-60 Minor surgery BMI > 25 kg/m2 Swollen legs Varicose veins or History of unexplained or recurrent spontaneous Oral contraceptives or hormone replacement Sepsis (< 1 month) Serious lung disease, including pneumonia (< 1 month) Abnormal pulmonary function Acute myocardial infarction Congestive heart failure (< 1 month) History of inflammatory bowel disease Medical patient at bed rest Age 61-74 Arthroscopic surgery Major open surgery (> 45 min) Laparoscopic surgery (> 45 min) Malignancy Confined to bed (> 72 hours) Immobilizing plaster cast Central venous access Age >= 75 History of VTE Family history of VTE Factor V Leiden Prothrombin [id number] Lupus anticoagulant Anticardiolipin antibodies Elevated serum homocysteine Heparin-induced thrombocytopenia Other congenital or acquired thrombophilia Stroke (< 1 month) Elective arthroplasty Hip, pelvis, or leg fracture Acute spinal cord injury (< 1 month) Prophylaxis Regimen Total Risk Factor Score Risk Level Prophylaxis Regimen 0-1 Low Early ambulation 2 Moderate Order ONE of the following: *Sequential Compression Device (SCD) *Heparin 5000 units SQ BID 3-4 Higher Order ONE of the following medications: *Heparin 5000 units SQ TID *Enoxaparin/Lovenox 40 mg SQ daily (WT < 150 kg, CrCl > 30 mL/min) *Enoxaparin/Lovenox 30 mg SQ daily (WT < 150 kg, CrCl > 10-29 mL/min) *Enoxaparin/Lovenox 30 mg SQ BID (WT < 150 kg, CrCl > 30 mL/min) AND/OR *Sequential Compression Device (SCD) 5 or more Highest Order ONE of the following medications: *Heparin 5000 units SQ TID (Preferred with Epidurals) *Enoxaparin/Lovenox 40 mg SQ daily (WT < 150 kg, CrCl > 30 mL/min) *Enoxaparin/Lovenox 30 mg SQ daily (WT < 150 kg, CrCl > 10-29 mL/min) *Enoxaparin/Lovenox 30 mg SQ BID (WT < 150 kg, CrCl > 30 mL/min) AND *Sequential Compression Device (SCD) Assessment and Plan Problem List: (1) CVA (cerebral vascular accident) ICD Code: I63.9 - Cerebral infarction, unspecified Plan: Patient with new onset hallucinations, increasing fatigue, unstable on feet and generalized weakness. CT reviewed showing left frontal lobe and left basal ganglia could be acute or subacute infarct. MRI ordered and pending. Follow. Consult placed to neurology, appreciate their input and recommendations Allow permissive hypertension. CBC and BMP reviewed, essentially unremarkable. Echo ordered, pending. Follow. PT ordered, appreciate evaluation and recommendations. Lipid panel. (2) COPD with acute exacerbation ICD Code: J44.1 - Chronic obstructive pulmonary disease with (acute) exacerbation Plan: Patient given high-dose steroids NAD. Patient placed on Solu-Medrol 60 mg IV every 12 hours. Supplemental O2 as needed. Asked x-ray reviewed showing mild CHF. Continue home inhalers. Duo nebs scheduled. (3) Type 2 diabetes mellitus ICD Code: E11.9 - Type 2 diabetes mellitus without complications Plan: Accu-Cheks before meals and at bedtime, sliding scale insulin, cover as needed. Monitor blood sugar trends. Hemoglobin A1c ordered follow. (4) Hypertension ICD Code: I10 - Essential (primary) hypertension Plan: Allow permissive hypertension, Vasotec available when necessary if systolic greater than 220. Monitor BP trends. (5) Hyperlipemia ICD Code: E78.5 - Hyperlipidemia, unspecified Plan: Continue home statin. DVT prophylaxis: SCDs. Heparin. (6) CHF (congestive heart failure) ICD Code: I50.9 - Heart failure, unspecified Physician Certification 2 Midnight Certification Type: Admission for Inpatient Services Order for Inpatient Services The services are ordered in accordance with Medicare regulations or non- Medicare payer requirements, as applicable. In the case of services not specified as inpatient-only, they are appropriately provided as inpatient services in accordance with the 2-midnight benchmark. Estimated LOS (days): 3 3 days is the estimated time the patient will need to remain in the hospital, assuming treatment plan goals are met and no additional complications. Post-Hospital Plan: Not yet determined Annel Concepcion May 20, 2017 18:59
[2017-05-20] MEDS ORDERED: GADODIAMIDE PF 287 MG/ML 20 ML VIAL (for RAD MRI) IVCONTRAST ONE (19:32)
--- NOTE | 2017-05-20 20:11 | RADRPT ---
EXAM DATE/TIME: 05/20/2017 19:13 [facility] COMPARISON: MRA CAROTIDS W CONTRAST, May 20, 2017, 19:13. CT BRAIN W/O CONTRAST, May 20, 2017, 16:21. INDICATIONS : CVA. Abnormal CT. CONTRAST: 20 cc Omniscan (gadodiamide) IV MEDICAL HISTORY : Carcinoma, prostate. Hypertension. Diabetes mellitus type 2. SURGICAL HISTORY : Prostatectomy. Cataracts. ENCOUNTER: Initial ACUITY: 1 day PAIN SCORE: 0/10 LOCATION: Head. TECHNIQUE: Multiplanar, multisequence MRI of the brain was performed both prior to and following the administrat ion of paramagnetic contrast. FINDINGS: CEREBRUM: The ventricles are normal for age. No evidence of midline shift, mass lesion, hemorrhage or acute in farction. No extraaxial fluid collections are seen. The pituitary gland and suprasellar cistern are normal in configuration. WHITE MATTER: There is moderate to severe chronic flair signal abnormality of the periventricular white matter. Old basal ganglia lacunar infarcts are present, mostly on the left. POSTERIOR FOSSA: The cerebellum and brainstem are intact. The 4th ventricle is midline. The cerebellopontine angle is unremarkable. The cerebellar tonsils are normal in position. DIFFUSION IMAGING: No focal areas of restricted diffusion are seen. No evidence of acute infarction. EXTRACRANIAL: The visualized portions of the orbits and paranasal sinuses are unremarkable. POST-CONTRAST: No abnormal areas of parenchymal or dural enhancement. No evidence of blood-brain barrier breakdown. CONCLUSION: 1. No acute infarct or other acute intracranial abnormality demonstrated. 2. Chronic white matter changes and old basal ganglia lacunar infarcts. Armen Bloom MD on May 20, 2017 at 20:07 Board Certified Radiologist. This report was verified electronically.
--- NOTE | 2017-05-20 20:16 | RADRPT ---
EXAM DATE/TIME: 05/20/2017 19:13 [facility] COMPARISON: No previous studies available for comparison. INDICATIONS : Stroke. CONTRAST: 20 cc Omniscan (gadodiamide) IV MEDICAL HISTORY : Hypertension. Diabetes mellitus type 2. Carcinoma, prostate. SURGICAL HISTORY : Prostatectomy. Cataracts. ENCOUNTER: Initial ACUITY: 1 day PAIN SCORE: 0/10 LOCATION: Head. Percent stenosis is calculated using the diameter of the stenotic region over the diameter of the nor mal distal internal carotid artery. TECHNIQUE: Bolus infused MRA of the extracranial circulation was performed using a neurovascular coil. Post pro cessing was performed including rotating subvolume maximum intensity projections of each carotid alia ry, rotating full volume maximum intensity projections of both carotid arteries, sagittal and coronal sliding thin slab reformations of each carotid artery, and left oblique sliding thin slab reformatio n through the aortic arch to include the origin of the arch branch vessels. FINDINGS: AORTIC ARCH: There is a three vessel origin of the great vessels from the aorta. No evidence of ostial narrowing. RIGHT CAROTID: There is high-grade but not quite complete occlusion of the right internal carotid artery at the bifu rcation. The right external carotid artery appears to be essentially completely occluded. LEFT CAROTID: The common carotid artery is intact. The carotid bulb has a normal configuration without ulceration or narrowing. The internal carotid artery lumen is smooth without stenosis. The external carotid ar emma is intact. VERTEBRALS: Left vertebral artery is occluded just proximal to the skull base. I believe the right vertebral alia ry may also be occluded near its junction with the basilar. CONCLUSION: 1. 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 2. Occluded right external carotid artery. 3. 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 Contrast enhanced CTA of the carotids is recommended. Armen Bloom MD on May 20, 2017 at 20:09 Board Certified Radiologist. This report was verified electronically.
[2017-05-20] MEDS: RESP: ALBUTEROL 2.5 MG/IPRATROPIUM 0.5 MG NEB (SCH) NEB (20:59)
[2017-05-20] MEDS ORDERED: methylPREDNISolone SOD SUCC 125 MG/2 ML VIAL IV PUSH ONE (21:00)
[2017-05-20] MEDS: INSULIN ASPART SUPPLEMENTAL SCALE SQ SCH (21:00)
[2017-05-20] MEDS ORDERED: ATORVASTATIN 40 MG TAB PO SCH (22:00)
[2017-05-20] MEDS ORDERED: BUDESONIDE-FORMOTEROL 160/4.5 MCG INHALER INH SCH (22:00)
[2017-05-20 22:10] LABS: HEMOGLOBIN A1C 6.6 % (4.3-6.0)
[2017-05-20] MEDS: HEPARIN SODIUM - SQ 10,000 UNITS/ML VIAL SQ SCH (22:26)
[2017-05-20] MEDS ORDERED: methylPREDNISolone SOD SUCC 125 MG/2 ML VIAL IV PUSH SCH (23:00)
[2017-05-21] VITALS: BP 173/79; PULSE 52; RESP 18; TEMP 97.4; O2SAT 94
[2017-05-21] MEDS ORDERED: methylPREDNISolone SOD SUCC 125 MG/2 ML VIAL IV PUSH SCH (01:00)
[2017-05-21 04:00] VITALS: BP 167/80; PULSE 74; RESP 18; TEMP 96.3; O2SAT 94
[2017-05-21] MEDS: HEPARIN SODIUM - SQ 10,000 UNITS/ML VIAL SQ SCH (06:04)
[2017-05-21] MEDS: INSULIN ASPART SUPPLEMENTAL SCALE SQ SCH (07:51)
[2017-05-21] MEDS: RESP: ALBUTEROL 2.5 MG/IPRATROPIUM 0.5 MG NEB (SCH) NEB (08:08)
[2017-05-21] MEDS ORDERED: ASPIRIN 325 MG TAB PO SCH (09:00)
[2017-05-21 10:07] LABS: CHOLESTEROL/ HDL RATIO 2.73 RATIO; HDL CHOLESTEROL 51.5 MG/DL (40.0-60.0)
--- NOTE | 2017-05-21 16:31 | EKG ---
Date Performed: 05/20/2017 Time Performed: 15:38:02 PTAGE: 76 years EKG: ATRIAL FIBRILLATION WITH SLOW VENTRICULAR RESPONSE MODERATE INTRAVENTRICULAR CONDUCTION DEL AY NONSPECIFIC ST & T-WAVE ABNORMALITY ABNORMAL RHYTHM ECG PREVIOUS TRACING : 05/17/2017 08.50 Since previous tracing, no significant change noted DOCTOR: Phillip Duran Interpretating Date/Time 05/21/2017 16:30:45
[2017-05-21] MEDS ORDERED: NITR1SUB3 SL (18:34)
== END 2017-05-21 08:28 | disposition left against medical advice (07) | DRG 65 ==
LOC: PHED 13:02 → PHEDA 17:38 → PH3B 23:02
PROVIDERS: ADMIT Hospitalist; ATTEND Hospitalist
DX: I63.9 Cerebral infarction, unspecified (principal); R44.3 Hallucinations, unspecified; I50.9 Heart failure, unspecified; E11.9 Type 2 diabetes mellitus without complications; Z79.84 Long term (current) use of oral hypoglycemic drugs; J44.1 Chronic obstructive pulmonary disease with (acute) exacerbation; I10 Essential (primary) hypertension; E78.5 Hyperlipidemia, unspecified; F17.210 Nicotine dependence, cigarettes, uncomplicated; H91.90 Unspecified hearing loss, unspecified ear; R47.81 Slurred speech; R29.701 NIHSS score 1; Z85.46 Personal history of malignant neoplasm of prostate
CPT/HCPCS: 70450; 70548; 70553; 71045; 80053; 80061; 81001; 83036; 83735; 83880; 84443; 84484; 85025; 85610; 85730; 93005; 94640; 94664; 96374; A9579; J0360; J1644; J1940; J2930

== ENCOUNTER 2017-05-21 13:35 | Inpatient (IN) | payer OTHER, MEDICARE ==
[~2017-05-21] VITALS: Ht 180.3 cm; Wt 107.6 kg
[2017-05-21] VITALS (7 sets, daily range): BP systolic 137–206; BP diastolic 71–96; PULSE 58–99; RESP 18–29; TEMP 97.4–97.8; O2SAT 96–98
[~2017-05-21 13:35] MED LIST changes: -1-ME1LIQ PO; +IPRAAER INH; -LISI-366 PO; +LISI-515 PO; -LISI10TA3 PO; -MECL25 PO; -METO-309 PO; +METO50TA PO; -NITR0.4D T-DERMAL; -ONDA1TAB16 PO; -OXYB5TAB PO; -POTA-163 PO; -PRAV40TA2 PO; -VENTAER INH
[2017-05-21] MEDS ORDERED: SODIUM CHLOR 0.9% 1000 ML INJ 1,000 ML IV ONE (13:42)
--- NOTE | 2017-05-21 13:52 | PD ---
HPI Chief Complaint: Stroke Alert Time Seen by Provider: 13:40 Travel History International Travel<30 days: No Contact w/Intl Traveler<30days: No Traveled to known affect area: No History of Present Illness HPI The patient is a 76-year-old male who presents to the emergency Department as a stroke alert by EMS. EMS states the patient was just released from [facility] earlier this morning approximately 10 AM. The patient returned home and was doing well until 1 PM when the stated the patient suddenly stopped talking. When EMS arrived they stated the patient was flaccid the upper extremities bilateral, was nonverbal, but would drop. They state the patient had no purposeful movement. Upon arrival patient is grunting , does not follow commands, and appears somewhat confused. No further information is obtainable from the patient secondary to his current medical condition. EMS states the patient's onset of symptoms was at 1 PM. The patient 's blood sugar upon arrival was in the 180s. PFSH Past Medical History Autoimmune Disease: No Heart Rhythm Problems: Yes (as a child) Cancer: Yes (PROSTATE CANCER) Cardiovascular Problems: Yes High Cholesterol: Yes COPD: Yes Diabetes: Yes Diminished Hearing: Yes (HARD OF HEARING) Genitourinary: No Hypertension: Yes Musculoskeletal: Yes Respiratory: Yes Immunizations Current: Yes Sleep Apnea: Yes Past Surgical History Eye Surgery: Yes Genitourinary Surgery: Yes (PROSTATE) Social History Alcohol Use: No Tobacco Use: Yes ( 3 CIGS NOW AT LEAST 2 PPD) Substance Use: No Allergies-Medications (Allergen,Severity, Reaction): Coded Allergies: No Known Allergies (Verified Adverse Reaction, Unknown, 05/21/17) Reported Meds & Prescriptions Reported Meds & Active Scripts Active Lasix (Furosemide) 40 Mg Tab 40 Mg PO DAILY Reported Combivent Respimat Inh (Ipratropium-Albuterol Inh) 20-100 [facility]/Act Aero 1 Puff INH TID Metoprolol Tartrate 50 Mg Tab 50 Mg PO BID Lisinopril 20 Mg Tab 20 Mg PO DAILY Symbicort Inh (Budesonide/Formoterol Fumarate) 160-4.5 Mcg/Act Aero 1 Puff INH Q12HR Duloxetine DR (Duloxetine HCl) 20 Mg Capdr 20 Mg PO DAILY Trazodone (Trazodone HCl) 50 Mg Tab 25 Mg PO HS Glipizide 5 Mg Tab 5 Mg PO BIDAC Take 30 minutes before a meal Metformin (Metformin HCl) 1,000 Mg Tab 1,000 Mg PO BIDPC Review of Systems ROS Limitations: Clinical Condition, Speech Impaired (currently only able to grunt) Except as stated in HPI: all other systems reviewed are Neg Musculoskeletal: Positive: Weakness Neurologic: Positive: Focal Abnormalities, Change in Mentation, Other (aphasia) Physical Exam Exam Limitations: Clinical Condition Narrative GENERAL: Eyes open, nonverbal 76-year-old male who appears his stated age and is in no acute respiratory distress. SKIN: Focused skin assessment warm/dry. HEAD: Atraumatic. Normocephalic. EYES: Pupils equal and round. 3 mm bilateral and reactive. EOMs appear intact. ENT: No nasal bleeding or discharge. Upper dentures in place. NECK: Trachea midline. No JVD. CARDIOVASCULAR: Irregularly irregular. RESPIRATORY: No accessory muscle use. Diminished in the bases. GASTROINTESTINAL: Abdomen soft, non-tender, nondistended. MUSCULOSKELETAL: No obvious deformities. No clubbing. No cyanosis. No edema. NEUROLOGICAL: Eyes open, nonverbal, grunting. Does not follow commands. Withdraws both lower extremities to pain. Initially would not move upper extremities, however, just prior to CT he was grabbing with his left arm. Does not follow commands in regards to extraocular muscle movement, visual youngblood, orientation questions, or movement of the upper or lower extremities. PSYCHIATRIC: Unable to obtain. Data Data Last Documented VS Vital Signs Date Time Temp Pulse Resp B/P (MAP) Pulse Ox O2 Delivery O2 Flow Rate FiO2 05/21/17 15:08 71 22 193/95 (127) 98 Nasal Cannula 2.00 Orders Orders Diet Npo (05/21/17 Lunch) Activity Bed Rest (05/21/17 ) Electrocardiogram (05/21/17 ) I-Stat Creatinine (05/21/17 13:42) I-Stat Profile (05/21/17 13:42) Prothrombin Time / Inr (Pt) (05/21/17 13:42) Act Partial Throm Time (Ptt) (05/21/17 13:42) Complete Blood Count With Diff (05/21/17 13:42) Fibrinogen (05/21/17 13:42) Creatine Kinase (Cpk) (05/21/17 13:42) Troponin I (05/21/17 13:42) Ua Includes Microscopic (05/21/17 13:42) Drug Screen, Random Urine (05/21/17 13:42) Type And Screen (05/21/17 13:42) Ct Brain W/O Iv Contrast(Rout) (05/21/17 ) Cta Brain W Iv Contrast W 3d (05/21/17 13:42) Cta Neck W Iv Contrast W 3d (05/21/17 13:42) Consult Neurology (05/21/17 ) Blood Glucose (05/21/17 13:42) Ecg Monitoring (05/21/17 13:42) Neuro Checks Q2HX12,Q4H (05/21/17 13:42) Nursing Bedside Swallow Assess .ONCE (05/21/17 13:42) Iv Access Insert/Monitor (05/21/17 13:42) NPO (05/21/17 13:42) Oximetry (05/21/17 13:42) Oxygen Administration (05/21/17 13:42) Sodium Chlor 0.9% 1000 Ml Inj (Ns 1000 M (05/21/17 13:42) Resp Oxygen Shmuel C Titrat 1-4 L (05/21/17 13:42) Cath For Specimen (05/21/17 13:42) (Hub Use Only)Inp Phy Cons/Ref (05/21/17 ) Iohexol 350 Inj (Omnipaque 350 Inj) (05/21/17 14:17) Aspirin (Aspirin) (05/21/17 14:45) Admit Order (Ed Use Only) (05/21/17 15:35) Labs Laboratory Tests Test 05/21/17 13:45 White Blood Count 8.3 TH/MM3 Red Blood Count 4.49 MIL/MM3 Hemoglobin 14.3 GM/DL Bedside Hemoglobin 15.3 G/DL Hematocrit 41.8 % Bedside Hematocrit 45.0 % Mean Corpuscular Volume 93.1 FL Mean Corpuscular Hemoglobin 31.9 PG Mean Corpuscular Hemoglobin Concent 34.3 % Red Cell Distribution Width 15.9 % Platelet Count 242 TH/MM3 Mean Platelet Volume 8.4 FL Neutrophils (%) (Auto) 87.8 % Lymphocytes (%) (Auto) 7.2 % Monocytes (%) (Auto) 4.8 % Eosinophils (%) (Auto) 0.0 % Basophils (%) (Auto) 0.2 % Neutrophils # (Auto) 7.3 TH/MM3 Lymphocytes # (Auto) 0.6 TH/MM3 Monocytes # (Auto) 0.4 TH/MM3 Eosinophils # (Auto) 0.0 TH/MM3 Basophils # (Auto) 0.0 TH/MM3 CBC Comment DIFF FINAL Differential Comment Prothrombin Time 10.8 SEC Prothromb Time International Ratio 1.1 RATIO Activated Partial Thromboplast Time 26.4 SEC Fibrinogen 368 mg/dL Bedside Sodium 141 MMOL/L Bedside Potassium 3.5 MMOL/L Bedside Chloride 99 MMOL/L Bedside Blood Urea Nitrogen 21 MG/DL Bedside Creatinine 1.3 MG/DL Bedside Glucose 209 MG/DL Total Creatine Kinase 78 U/L Troponin I LESS THAN 0.02 NG/ML MDM Medical Screen Exam Complete: Yes Emergency Medical Condition: Yes Medical Record Reviewed: Yes EKG Prior to Arrival: No Differential Diagnosis Differential diagnosis includes intracranial hemorrhage, hypertensive encephalopathy, hypertensive emergency, CVA, TIA, seizure, delirium, hyponatremia. Narrative Course IV was established, labs are drawn and sent, and the patient was placed on cardiac telemetry monitoring and continuous pulse oximetry monitoring. The patient went immediately to CT for CT the brain and CTA. I discussed the patient with the neurologist, Dr. Boyle, at 1:47 PM. A complete neurologic evaluation as stroke scale is hard to perform as the patient will not follow commands, appears somewhat confused with possible underlying encephalopathy. However, he is unable to speak, only grunting. Therefore, CTA was performed. I had a discussion with the patient's at 1:56 PM. She states the patient left the hospital this morning AGAINST MEDICAL ADVICE because he saw people with guns and thought the hospital was "out to get him ". She states he was able to talk on the way home, went home and ate a sandwich and then sat on the front porch and his favorite chair. She states when she walked outside she tapped him on this shoulder with seemed to startle him. She states he started moving both arms and it looked like his eyes were rolling into the back of the head. This lasted for several moments and then resolved. She states the patient then asked for glasses because he is having difficulty seeing. She does state he has a hard time hearing people, however, did appear somewhat confused prior to arrival. The patient returned from the CT room, with speak to his , however, would not speak to us. He was moving his extremities, however, they were not purposeful movements, unsure if the patient was having active hallucinations or delusions. As the patient is now speaking to his and his symptoms have improved I don't believe the patient is a candidate for TPA. It appears the patient has has an encephalopathy. The patient was evaluated by Dr. Boyle who also states the patient does not appear to be a TPA candidate. After the patient returned from CT he was more awake, alert, and able to answer questions. He was able to tell me that he was in some type ability and was able to tell me the name. As the patient's symptoms are improving there is no indication for TPA. There is concern that this may be related to encephalopathy versus seizure. Neurology recommends admission. Therefore, the on-call medical service was paged for admission. Stroke Alert NIHSS NIH Stroke Scale Result: 22 NIHSS Time Completed: 13:44 Procedures Interpretation(s) EKG reveals atrial fibrillation with slow ventricular response, rate of 59. Nonspecific T wave changes with inverted T waves noted in lead V6. Laboratory Tests Test 05/21/17 13:45 White Blood Count 8.3 TH/MM3 Red Blood Count 4.49 MIL/MM3 Hemoglobin 14.3 GM/DL Bedside Hemoglobin 15.3 G/DL Hematocrit 41.8 % Bedside Hematocrit 45.0 % Mean Corpuscular Volume 93.1 FL Mean Corpuscular Hemoglobin 31.9 PG Mean Corpuscular Hemoglobin Concent 34.3 % Red Cell Distribution Width 15.9 % Platelet Count 242 TH/MM3 Mean Platelet Volume 8.4 FL Neutrophils (%) (Auto) 87.8 % Lymphocytes (%) (Auto) 7.2 % Monocytes (%) (Auto) 4.8 % Eosinophils (%) (Auto) 0.0 % Basophils (%) (Auto) 0.2 % Neutrophils # (Auto) 7.3 TH/MM3 Lymphocytes # (Auto) 0.6 TH/MM3 Monocytes # (Auto) 0.4 TH/MM3 Eosinophils # (Auto) 0.0 TH/MM3 Basophils # (Auto) 0.0 TH/MM3 CBC Comment DIFF FINAL Differential Comment Prothrombin Time 10.8 SEC Prothromb Time International Ratio 1.1 RATIO Activated Partial Thromboplast Time 26.4 SEC Fibrinogen 368 mg/dL Bedside Sodium 141 MMOL/L Bedside Potassium 3.5 MMOL/L Bedside Chloride 99 MMOL/L Bedside Blood Urea Nitrogen 21 MG/DL Bedside Creatinine 1.3 MG/DL Bedside Glucose 209 MG/DL Total Creatine Kinase 78 U/L Troponin I LESS THAN 0.02 NG/ML Last Impressions Head CTA 05/21/17 1342 Signed Impressions: Service Date/Time: Sunday, May 21, 2017 13:56 - CONCLUSION: 1. Occluded right internal carotid artery with reconstitution of the right anterior circulation through the anterior commuting artery. 2. Small caliber right vertebral artery which may reflect a more proximal flow-limiting lesion. 3. Distal left vertebral artery is patent with dominant left vertebral artery. Brant Reid MD Head CT 05/21/17 0000 Signed Impressions: Service Date/Time: Sunday, May 21, 2017 13:53 - CONCLUSION: Stable brain appearance with no acute intracranial findings. Armen Ontiveros MD Physician Communication Physician Communication The on-call medical service was paged for admission. I discussed the patient with Dr. Torres who agrees with admission. Diagnosis Diagnosis: Primary Impression: Delirium Additional Impressions: Aphasia Encephalopathy Admitting Physician Requests: Admit Condition: Stable Dimitris Calloway MD May 21, 2017 13:52
[2017-05-21 14:02] LABS: AUTOMATED NEUTROPHIL # 7.3 TH/MM3 (1.8-7.7); BASOPHIL % 0.2 % (0.0-2.0); HEMATOCRIT 41.8 % (39.0-51.0); HEMOGLOBIN 14.3 GM/DL (13.0-17.0); LYMPH % 7.2 % (9.0-44.0); LYMPHOCYTE # 0.6 TH/MM3 (1.0-4.8); MEAN CELL VOLUME 93.1 FL (80.0-100.0); MEAN CORPUSCULAR HEMOGLOBIN 31.9 PG (27.0-34.0); MEAN CORPUSCULAR HGB CONC 34.3 % (32.0-36.0); MEAN PLATELET VOLUME 8.4 FL (7.0-11.0); MONO % 4.8 % (0.0-8.0); MONOCYTE # 0.4 TH/MM3 (0-0.9); NEUT % 87.8 % (16.0-70.0); PLATELET COUNT 242 TH/MM3 (150-450); RED BLOOD COUNT 4.49 MIL/MM3 (4.50-5.90); RED CELL DISTRIBUTION WIDTH 15.9 % (11.6-17.2); WHITE BLOOD COUNT 8.3 TH/MM3 (4.0-11.0)
--- NOTE | 2017-05-21 14:12 | RADRPT ---
EXAM DATE/TIME: 05/21/2017 13:53 [facility] COMPARISON: CT BRAIN W/O CONTRAST, May 20, 2017, 16:21. MRI BRAIN W & W/O CONTRAST, May 20, 2017, 19:13 . INDICATIONS : Stroke Alert RADIATION DOSE: 49.68 CTDIvol (mGy) This report was called by Weston Calloway at 1408 MEDICAL HISTORY : Cardiovascular disease. Hypertension. Carcinoma, prostate. SURGICAL HISTORY : None. ENCOUNTER: Initial ACUITY: 1 day PAIN SCALE: 0/10 LOCATION: cranial TECHNIQUE: Multiple contiguous axial images were obtained of the head. Using automated exposure control and adj ustment of the mA and/or kV according to patient size, radiation dose was kept as low as reasonably a chievable to obtain optimal diagnostic quality images. DICOM format image data is available electro nically for review and comparison. 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 Mild periventricular hypodensity, primarily on the left is also unchanged from prior. There is no evidence of intracranial mass or hemorrhage. There is nothing to suggest acute infarction. The ventricles are symmetric and n ormal. No abnormal extra-axial fluid accumulation is identified. Extracranial structures are stable, benign and intact. CONCLUSION: Stable brain appearance with no acute intracranial findings. Armen Ontiveros MD on May 21, 2017 at 14:05 Board Certified Radiologist. This report was verified electronically.
[2017-05-21] MEDS ORDERED: IOHEXOL 350 MG/ML 10 ML VIAL (for RAD DIAG) IVCONTRAST ONE (14:17)
[2017-05-21] MEDS ORDERED: METFORMIN HOLD POST IV CONTRAST SCH (14:17)
[2017-05-21 14:21] LABS: INTERNATIONAL NORMALIZED RATIO 1.1 RATIO; PROTHROMBIN TIME - PATIENT 10.8 SEC (9.8-11.6)
[2017-05-21 14:28] LABS: TROPONIN I LESS THAN 0.02 NG/ML (0.02-0.05)
[2017-05-21] MEDS ORDERED: ASPIRIN 325 MG TAB PO ONE (14:45)
--- NOTE | 2017-05-21 14:45 | RADRPT ---
EXAM DATE/TIME: 05/21/2017 13:56 [facility] COMPARISON: MRA CAROTIDS W CONTRAST, May 20, 2017, 19:13. INDICATIONS : Stroke Alert IV CONTRAST: 90 cc Omnipaque 350 (iohexol) IV ; Cumulative dose for multiple exams. RADIATION DOSE: 49.68 CTDIvol (mGy) MEDICAL HISTORY : Cardiovascular disease. Hypertension. Carcinoma, prostate.diabetes SURGICAL HISTORY : None. ENCOUNTER: Initial ACUITY: 1 day PAIN SCALE: 0/10 LOCATION: cranial TECHNIQUE: Volumetric scanning was performed using a multi-row detector CT scanner. The data was post processed with a variety of visualization algorithms including full volume maximum intensity projection, multi -planar sliding thin slab reformation, curved planar reformation, and surface rendering techniques. Using automated exposure control and adjustment of the mA and/or kV according to patient size, radiat ion dose was kept as low as reasonably achievable to obtain optimal diagnostic quality images. DICO M format image data is available electronically for review and comparison. FINDINGS: Anterior circulation: Right internal carotid artery is occluded. There is reconstitution of the right anterior and middle c erebral arteries through the anterior commuting artery. There is no evidence for aneurysm, vessel vidya ncation or stenosis, and no evidence for vascular malformation. Posterior circulation: Small caliber right vertebral artery distally. Distal left vertebral artery is patent with dominant l eft vertebral artery. Flow extends to the basilar artery which is patent with flow to the posterior cervical arteries bilaterally. There is no evidence for aneurysm, vessel truncation or stenosis, and no evidence for vascular malformation. CONCLUSION: 1. Occluded right internal carotid artery with reconstitution of the right anterior circulation throu gh the anterior commuting artery. 2. Small caliber right vertebral artery which may reflect a more proximal flow-limiting lesion. 3. Distal left vertebral artery is patent with dominant left vertebral artery. Brant [facility] MD on May 21, 2017 at 14:15 Board Certified Radiologist. This report was verified electronically.
--- NOTE | 2017-05-21 15:15 | RADRPT ---
EXAM DATE/TIME: 05/21/2017 13:56 [facility] COMPARISON: CTA BRAIN W 3D RECON, May 21, 2017, 13:56. MRA CAROTIDS W CONTRAST, May 20, 2017, 19:13. INDICATIONS : Stroke Alert IV CONTRAST: 90 cc Omnipaque 350 (iohexol) IV ; Cumulative dose for multiple exams. RADIATION DOSE: 49.68 CTDIvol (mGy) MEDICAL HISTORY : Cardiovascular disease. Hypertension. Carcinoma, prostate. SURGICAL HISTORY : None. ENCOUNTER: Initial ACUITY: 1 day PAIN SCALE: 0/10 LOCATION: cranial Elevated flow velocities and ICA/CCA ratios have been found to correlate with increased degrees of vessel stenosis, calculated as percentage of diameter relative to a normal segment of distal ICA/CCA. TECHNIQUE: Volumetric scanning was performed using a multirow detector CT scanner. The data was post processed with a variety of visualization algorithms including full-volume maximum intensity projection, multip lanar sliding thin-slab reformation, curved-planar reformation, and surface-rendering techniques. Us ing automated exposure control and adjustment of the mA and/or kV according to patient size, radiatio n dose was kept as low as reasonably achievable to obtain optimal diagnostic quality images. DICOM f ormat image data is available electronically for review and comparison. FINDINGS: AORTIC ARCH: There is a three-vessel origin of the great vessels from the aorta. Origin of the left carotid artery is not well demonstrated. However, there is at least likely a mild to moderate stenosis of the carot id origin similar to recent MRA examination. RIGHT CAROTID: The common carotid artery is intact. Internal carotid artery is occluded at the origin. There is mode rate to severe stenosis of the external carotid origin. LEFT CAROTID: Again, origin of the left carotid artery is not well demonstrated but likely [id number] be sten osed. Atherosclerotic plaque in the carotid bulb extending to the origin of the internal carotid alia ry with resultant less than 40% stenosis. Internal carotid artery is otherwise patent to the skull ba se. External carotid artery is patent. VERTEBRALS: Right vertebral artery is occluded at the origin. Left vertebral artery is patent although not well d emonstrated at the origin. There is retrograde opacification of the distal right vertebral artery. CONCLUSION: 1. Occluded right internal carotid artery. 2. Likely [id number], less than 50%, stenosis of the left carotid origin. 3. Less than 40% stenosis of the left internal carotid origin secondary to calcified plaque. 4. Above tandem left carotid stenoses may be hemodynamically significant given single carotid anterio r circulation perfusion. 5. Occluded right vertebral artery. Brant [facility] MD on May 21, 2017 at 14:47 Board Certified Radiologist. This report was verified electronically.
[2017-05-21] MEDS ORDERED: LACTULOSE SYRUP 20 GM/30 ML CUP PO PRN (16:15)
[2017-05-21] MEDS ORDERED: MAGNESIUM HYDROXIDE SUSP 30 ML CUP PO PRN (16:15)
[2017-05-21] MEDS ORDERED: SENNOSIDES 8.6 MG TAB PO PRN (16:15)
[2017-05-21] MEDS ORDERED: BISACODYL 10 MG SUPP RECTAL PRN (16:15)
[2017-05-21] MEDS ORDERED: ACETAMINOPHEN 325 MG TAB PO PRN (16:15)
[2017-05-21] MEDS ORDERED: LORazepam 2 MG/ML VIAL IV PUSH PRN (16:15)
[2017-05-21] MEDS ORDERED: DEXTROSE 50% IN WATER 50 ML VIAL(D50) IV PUSH PRN (16:15)
[2017-05-21] MEDS ORDERED: SODIUM CHLORIDE 0.9% FLUSH 10 ML FLUSH IV FLUSH PRN (16:15)
[2017-05-21] MEDS ORDERED: GLUCAGON 1 MG/ML VIAL OTHER PRN (16:15)
[2017-05-21] MEDS ORDERED: NALOXONE HCL 0.4 MG/ML AMP IV PUSH PRN (16:15)
[2017-05-21] MEDS ORDERED: ONDANSETRON HCL 4 MG/2 ML VIAL IVP PRN (16:15)
--- NOTE | 2017-05-21 16:32 | HHI.HP ---
[facility] Service [place] [place] [facility] Primary Care Physician [facility] Admission Diagnosis stroke alert, encephalopathy, rule out seizure Diagnoses: Travel History International Travel<30 Days: No Contact w/Intl Traveler <30 Da: No Traveled to Known Affected Are: No History of Present Illness 76-year-old male with a past medical history of carotid artery stenosis, hypertension, diabetes mellitus, COPD and history of prostate presents to the emergency department for evaluation of altered mental status and accompanying seizure-like activity. The patient was admitted to [place] yesterday where he was treated for an acute COPD exacerbation and possible CVA. He left AGAINST MEDICAL ADVICE. The patient's reports that for the past 5 days the patient has been having auditory and visual hallucinations intermittently. Brain MRI performed yesterday showed no acute infarct with chronic white matter changes and old basal ganglia lacunar infarcts. The patient reportedly left the hospital because he felt there were individuals there who were "trying to get him." He called his this morning and have her pick him up. She was in the process of attempting to convince her to return to the hospital for further workup when he had an episode of generalized seizure-like activity in his upper extremities. His reports that at that time his eyes were rolled back in his head. There was no accompanying bowel/bladder incontinence. She reports after the episode was over the patient was confused and unable to answer questions appropriately. She called EMS and the patient was brought to the emergency department where a stroke code was called. Review of Systems Denies fever or chills Denies blurry vision, otorrhea, rhinorrhea Denies sore throat, positive cough No chest pain, palpitations, positive shortness of breath, improved from yesterday No abdominal pain Denies constipation/diarrhea/nausea/vomiting Denies muscle pain/weakness No rashes Past Family Social History Past Medical History Carotid artery stenosis Hypertension Type 2 diabetes mellitus History of prostate cancer A. fib not on anticoagulation COPD Past Surgical History Prostatectomy Cataract surgery Reported Medications Reported Meds & Active Scripts Active Lasix (Furosemide) 40 Mg Tab 40 Mg PO DAILY Reported Combivent Respimat Inh (Ipratropium-Albuterol Inh) 20-100 Usp/Act Aero 1 Puff INH TID Metoprolol Tartrate 50 Mg Tab 50 Mg PO BID Lisinopril 20 Mg Tab 20 Mg PO DAILY Symbicort Inh (Budesonide/Formoterol Fumarate) 160-4.5 Mcg/Act Aero 1 Puff INH Q12HR Duloxetine DR (Duloxetine HCl) 20 Mg Capdr 20 Mg PO DAILY Trazodone (Trazodone HCl) 50 Mg Tab 25 Mg PO HS Glipizide 5 Mg Tab 5 Mg PO BIDAC Take 30 minutes before a meal Metformin (Metformin HCl) 1,000 Mg Tab 1,000 Mg PO BIDPC Allergies: Coded Allergies: No Known Allergies (Verified Adverse Reaction, Unknown, 05/21/17) Family History Both parents with CT. Father from AAA rupture. Social History Has smoked since the age of 19, currently smoking 5 cigarettes per day. Denies alcohol, illicit drugs. Physical Exam Vital Signs Vital Signs Date Time Temp Pulse Resp B/P (MAP) Pulse Ox O2 Delivery O2 Flow Rate FiO2 05/21/17 15:08 71 22 193/95 (127) 98 Nasal Cannula 2.00 05/21/17 14:11 99 Nasal Cannula 2.00 05/21/17 14:10 58 22 201/93 (129) 96 Nasal Cannula 2.00 05/21/17 14:05 58 20 98 Room Air 05/21/17 13:38 70 20 184/88 (120) 96 05/21/17 13:35 97 Nasal Cannula 3.00 05/21/17 13:35 97 3.00 Physical Exam GENERAL: male lying in bed SKIN: No rashes, ecchymoses or lesions. Cool and dry. HEAD: Atraumatic. Normocephalic. No temporal or scalp tenderness. EYES: Pupils equal round and reactive. Extraocular motions intact. No scleral icterus. No injection or drainage. ENT: Nose without bleeding, purulent drainage or septal hematoma. Throat without erythema, tonsillar hypertrophy or exudate. Uvula midline. Airway patent. NECK: Trachea midline. No JVD or lymphadenopathy. Supple, nontender, no meningeal signs. CARDIOVASCULAR: Irregularly irregular rhythm without murmurs, gallops, or rubs. RESPIRATORY: Clear to auscultation. Breath sounds equal bilaterally. No wheezes , rales, or rhonchi. GASTROINTESTINAL: Abdomen soft, non-tender, nondistended. No hepato-splenomegaly , or palpable masses. No guarding. MUSCULOSKELETAL: Extremities without clubbing, cyanosis. Trace bilateral lower extremity edema. No calf tenderness. NEUROLOGICAL: Awake and alert. Cranial nerves II through XII intact. Motor and sensory grossly within normal limits. Five out of 5 muscle strength in all muscle groups. Normal speech. A&O 3. Laboratory Laboratory Tests Test 05/21/17 13:45 White Blood Count 8.3 Red Blood Count 4.49 Hemoglobin 14.3 Bedside Hemoglobin 15.3 Hematocrit 41.8 Bedside Hematocrit 45.0 Mean Corpuscular Volume 93.1 Mean Corpuscular Hemoglobin 31.9 Mean Corpuscular Hemoglobin Concent 34.3 Red Cell Distribution Width 15.9 Platelet Count 242 Mean Platelet Volume 8.4 Neutrophils (%) (Auto) 87.8 Lymphocytes (%) (Auto) 7.2 Monocytes (%) (Auto) 4.8 Eosinophils (%) (Auto) 0.0 Basophils (%) (Auto) 0.2 Neutrophils # (Auto) 7.3 Lymphocytes # (Auto) 0.6 Monocytes # (Auto) 0.4 Eosinophils # (Auto) 0.0 Basophils # (Auto) 0.0 CBC Comment DIFF FINAL Differential Comment Prothrombin Time 10.8 Prothromb Time International Ratio 1.1 Activated Partial Thromboplast Time 26.4 Fibrinogen 368 Bedside Sodium 141 Bedside Potassium 3.5 Bedside Chloride 99 Bedside Blood Urea Nitrogen 21 Bedside Creatinine 1.3 Bedside Glucose 209 Total Creatine Kinase 78 Troponin I LESS THAN 0.02 Result Diagram: 05/21/17 5310 Caprini VTE Risk Assessment Caprini VTE Risk Assessment: Mod/High Risk (score >= 2) Caprini Risk Assessment Model Point Value = 1 Point Value = 2 Point Value = 3 Point Value = 5 Age 41-60 Minor surgery BMI > 25 kg/m2 Swollen legs Varicose veins or History of unexplained or recurrent spontaneous Oral contraceptives or hormone replacement Sepsis (< 1 month) Serious lung disease, including pneumonia (< 1 month) Abnormal pulmonary function Acute myocardial infarction Congestive heart failure (< 1 month) History of inflammatory bowel disease Medical patient at bed rest Age 61-74 Arthroscopic surgery Major open surgery (> 45 min) Laparoscopic surgery (> 45 min) Malignancy Confined to bed (> 72 hours) Immobilizing plaster cast Central venous access Age >= 75 History of VTE Family history of VTE Factor V Leiden Prothrombin [id number] Lupus anticoagulant Anticardiolipin antibodies Elevated serum homocysteine Heparin-induced thrombocytopenia Other congenital or acquired thrombophilia Stroke (< 1 month) Elective arthroplasty Hip, pelvis, or leg fracture Acute spinal cord injury (< 1 month) Prophylaxis Regimen Total Risk Factor Score Risk Level Prophylaxis Regimen 0-1 Low Early ambulation 2 Moderate Order ONE of the following: *Sequential Compression Device (SCD) *Heparin 5000 units SQ BID 3-4 Higher Order ONE of the following medications: *Heparin 5000 units SQ TID *Enoxaparin/Lovenox 40 mg SQ daily (WT < 150 kg, CrCl > 30 mL/min) *Enoxaparin/Lovenox 30 mg SQ daily (WT < 150 kg, CrCl > 10-29 mL/min) *Enoxaparin/Lovenox 30 mg SQ BID (WT < 150 kg, CrCl > 30 mL/min) AND/OR *Sequential Compression Device (SCD) 5 or more Highest Order ONE of the following medications: *Heparin 5000 units SQ TID (Preferred with Epidurals) *Enoxaparin/Lovenox 40 mg SQ daily (WT < 150 kg, CrCl > 30 mL/min) *Enoxaparin/Lovenox 30 mg SQ daily (WT < 150 kg, CrCl > 10-29 mL/min) *Enoxaparin/Lovenox 30 mg SQ BID (WT < 150 kg, CrCl > 30 mL/min) AND *Sequential Compression Device (SCD) Assessment and Plan Assessment and Plan Assessment/plan: 1. Possible seizure/hallucinations/altered mental status Patient with seizure-like activity and postictal state following the episode MRI brain from yesterday showed no acute infarct Neurology consulted, appreciate recommendations EEG pending Ativan prn Seizure precautions 2. Carotid artery stenosis Neck CTA showed included right internal carotid artery with stenosis of the left internal carotid and included right vertebral artery Vascular surgery consulted, appreciate recommendations 3. Atrial fibrillation Patient not on anticoagulation Echo pending 4. Diabetes mellitus SSI Monitor blood glucose Holding home metformin and glyburide 5. COPD DuoNeb's Continue inhaled steroids once medications reconciled 6. Hypertension Continue home antihypertensives once medications reconciled Monitor blood pressure FEN Heart healthy diet after bedside swallow eval NS at 70 cc/hr Electrolytes: monitor and replete prn Heparin Physician Certification 2 Midnight Certification Type: Admission for Inpatient Services Order for Inpatient Services The services are ordered in accordance with Medicare regulations or non- Medicare payer requirements, as applicable. In the case of services not specified as inpatient-only, they are appropriately provided as inpatient services in accordance with the 2-midnight benchmark. Estimated LOS (days): 2 2 days is the estimated time the patient will need to remain in the hospital, assuming treatment plan goals are met and no additional complications. Post-Hospital Plan: Not yet determined Rebeka Torres MD May 21, 2017 16:31
[2017-05-21] MEDS: INSULIN ASPART SUPPLEMENTAL SCALE SQ SCH ×2 (17:00→21:28)
[2017-05-21] MEDS: SODIUM CHLOR 0.9% 1000 ML INJ 1,000 ML IV SCH (18:26)
[2017-05-21] MEDS: HEPARIN SODIUM - SQ 10,000 UNITS/ML VIAL SQ SCH (18:26)
[2017-05-21] MEDS ORDERED: NITR1SUB3 SL (18:34)
--- NOTE | 2017-05-21 20:29 | MB ---
cc: MD [facility] DATE OF CONSULTATION: 05/21/2017. REASON FOR CONSULTATION: Right carotid artery occlusion, left stenosis, COPD, respiratory failure, hypertension, diabetes mellitus. CRITICAL CARE TIME SPENT: Critical care time forty (40) minutes. HISTORY OF PRESENT ILLNESS: This 76-year-old male with a complex past medical history came to the emergency room for evaluation of altered mental status and seizure-like activity. The patient was flailing around at home and was disoriented and then was brought to this emergency room. It should be noted that the patient was evaluated yesterday in [facility] for COPD exacerbation and possible CVA however left against medical advice. The patient is very noncompliant with care and noncompliant with social issues in general according to his family. His states that he might have had seizure-like activity at home. The patient was evaluated as a stroke alert, although there is right now no evidence of the same. PAST MEDICAL HISTORY: 1. Hypertension. 2. COPD. 3. Diabetes mellitus. 4. Known carotid stenosis for which the patient refused therapy. 5. Atrial fibrillation, not treated with anticoagulation. PAST SURGICAL HISTORY: 1. Prostatectomy about ten years ago. 2. Prostate cancer. 3. Cataract surgery. MEDICATIONS: Medications can be found on the record; however, the patient is taking those with variable compliance. SOCIAL HISTORY: The patient smokes about half-a-pack a day and has smoked since the age of 17. PHYSICAL EXAMINATION: GENERAL: The physical examination reveals a 76-year-old male. HEAD, EYES, EARS, NOSE, THROAT: Normocephalic. No trauma to the head. Pupils equal and reactive. Extraocular muscles intact. The patient is very hard of hearing. NECK: The neck is supple. Bilateral carotid pulses and actually, no bruits. It is very hard to detect pulses in the upper part of the neck, but in the lower part they appear to be normal. CHEST: Bilateral breath sounds decreased over both lung youngblood consistent with severe COPD. The patient is retracting chest wall musculature and breathing with accessory muscles. HEART: Irregular rhythm. He is in atrial fibrillation at about 60 or so. ABDOMEN: Soft. Active bowel sounds. No rebound. No guarding. No masses. EXTREMITIES: The patient has bilateral femoral pulses to palpation but these are not very strong and distal pulses cannot be palpated in the popliteal fossa; however, are present on Doppler study. Dorsalis pedis and posterior tibial only by Doppler. Some swelling noted in lower extremities and pretibial area. BACK: The back is normal. IMPRESSION AND RECOMMENDATIONS: I reviewed laboratory and diagnostic procedures. This patient is a noncompliant with multiple medical problems that he has not taken care of. As a result, he has the followin. MRA of the carotids shows very tight stenosis of the right internal carotid artery while the CT scan reveals occlusion of the same. CTA reveals occlusion of the same. CTA in general is a better study and more reliable so I believe the latter. On the other hand, just to make sure, we are going to do an ultrasound of the carotids. On the left side, the patient has a mild stenosis which is non-hemodynamically significant. Other than that, the patient also has a right vertebral artery occlusion. All in all, the patient has really a poor oxygen supply to the brain. He will need a neurology consult with EEG, cardiac echocardiogram and we will go from there. Other than that, I will continue to follow the patient but if the carotid is occluded, there is nothing we can do about it, and the left side seems to be narrowed very mildly so does not need anything done. Thank you very much for the referral. I will continue to follow the patient. Bertin TELLO/ANNE /7:19 PM /8:13 PM
[2017-05-21] MEDS: DOCUSATE SODIUM 50 MG/SENNA 8.6 MG TAB PO SCH (21:27)
[2017-05-21] MEDS: levETIRAcetam 500 MG TAB PO SCH (21:27)
--- NOTE | 2017-05-21 21:27 | MB ---
cc: RHETT PACHECO MD DATE OF CONSULTATION 05/21/17 REASON FOR CONSULTATION Stroke alert. HISTORY OF PRESENT ILLNESS Mr. Prescott is a 76-year-old male with past medical history of carotid artery stenosis, hypertension, diabetes mellitus, COPD, history of prostate cancer who presented to the [facility] emergency room for evaluation of altered mental status with possible seizure-like activity. The patient was admitted to [facility] [place] yesterday. He was treated for acute COPD exacerbation and possible stroke. He left AMA. The patient's reports that for the past five days the patient has been having auditory and visual hallucinations. He was acting differently, "he is not mean , but he has changed". Brain MRI done yesterday with no acute infarction just chronic white matter disease and old basal ganglia lacunar infarcts. He left the hospital because he felt that there are individuals who are trying to get him, There was reported seizure-like activity in the upper extremity and this was followed by some confusional state and slurred speech where his eyes also were reportedly all back in his head and was accompanying bowel and bladder incontinence. On arrival to the emergency room as a stroke alert, the patient was confused and unable to answer questions. A stat head CT was done, revealed stable appearance with old bilateral basal ganglia thalamic and lacunar infarcts and mild periventricular hypodensity primary in the left also unchanged from prior, no evidence of mass or hemorrhage. The patient was deemed not a candidate for IV TPA because of rapidly improving symptoms and there also is a concern that the presentation was a seizure, given the 's statement that symptoms started a few days ago. REVIEW OF SYSTEMS A 12-point review of systems negative except for what is stated in the HPI. PAST MEDICAL HISTORY 1. Carotid artery stenosis, 2. hypertension, 3. Type 2 diabetes mellitus, 4. History of prostate cancer. 5. A. Fib not on anticoagulation 6. COPD. PAST SURGICAL HISTORY 1. Prostatectomy 2. Cataract surgery. MEDICATIONS 1. Combivent 2. Metoprolol 3. Lisinopril 4. Symbicort 5. Fluoxetine 6. Trazodone. 7. Glipizide. 8. Metformin. ALLERGIES No known allergies. FAMILY HISTORY Father of an abdominal aortic aneurysm rupture SOCIAL HISTORY Smokes five cigarettes per day. Denies alcohol or illicit drugs. PHYSICAL EXAMINATION GENERAL: Awake, alert, overweight, poor historian. HEENT: Atraumatic, normocephalic. Intact hearing, intact vision. The patient is [id number]. Intact vision. NECK: Supple. No signs of meningeal irritation. CARDIOVASCULAR: Irregularly irregular without murmurs. RESPIRATORY: Clear to auscultation. No wheezes. GASTROINTESTINAL: Soft, nontender. No organomegaly MUSCULOSKELETAL: Extremities without clubbing, cyanosis, bilateral ankle edema. NEUROLOGIC: Awake, alert, oriented to time, person, place. Mild slurring of speech. Speaks in a soft voice. Cranial nerves II-XII grossly intact. No facial asymmetry. No nystagmus. No diplopia. Intact facial sensation. Upper and lower extremities 5/5 bilateral symmetrical. Normal sensation throughout. Reflexes 1+ bilateral symmetrical, sluggish bilateral ankle reflexes. LABORATORY DATA - WBC 8.3, hemoglobin 14.3, platelet 242, sodium 141, potassium 3.5. IMAGING STUDIES - Head CT scan - stable old bilateral basal ganglia thalamic lacunar infarct, mild periventricular hypodensity primarily in the left also unchanged from the prior study. No evidence if intracranial mass or hemorrhage. There is nothing to suggest acute infarction. - Neck CTA revealed occluded right ICA. Likely [id number] less than 50% left carotid origin, less than 40% in the left ICA secondary to calcified plaque , occluded right vertebral artery. DIAGNOSTIC IMPRESSION 1. Encephalopathy. - Associated possible seizure-like activity and hallucinations with postictal confusion state of double incontinence. 3. Nonfocal neurological exam, rapidly improving symptoms, start of symptoms outside the therapeutic window of IV TPA thus the patient is deemed not a candidate for IV tPA. 4. Carotid artery stenosis, occlusion of the right ICA and occluded right vertebral artery. 5. Atrial fibrillation. 6. Diabetes mellitus. 7. COPD. PLAN 1. Neuro checks q. one hourly 2. EEG 3. Keppra 500 mg twice daily 4. Seizure precautions. 5. Aspirin 6. Cardiac echo. 7. Goal blood pressure 135-40/75-80. Thank you for the opportunity to participate in the care of your patient. MD JEANMARIE Cote/ /7:53 PM /8:57 PM MTDMaureen
[2017-05-21] MEDS: SODIUM CHLORIDE 0.9% FLUSH 10 ML FLUSH IV FLUSH SCH (21:28)
--- NOTE | 2017-05-21 21:45 | RADRPT ---
EXAM DATE/TIME: 05/21/2017 20:20 [place] COMPARISON: No previous studies available for comparison. INDICATIONS : Abnormal CTA/MRA. MEDICAL HISTORY : Hypercholesterolemia. Hypertension. Chronic obstructive pulmonary disease. Hearing loss. Atrial fibri llation. Sleep apnea. Dyspnea. Diabetes. Prostate cancer. SURGICAL HISTORY : Eye surgery. Prostate surgery. Hip surgery. Neck surgery. ENCOUNTER: Initial ACUITY: 1 day PAIN SCORE: 0/10 LOCATION: Bilateral neck PEAK SYSTOLIC VELOCITIES (cm/sec): ICA/CCA RATIO: Right: UTO Left: 1.2 ICA: Right: UTO Left: 125.1 CCA: Right: 141.6 Left: 106.9 ECA: Right: 294.9 Left: 214.4 VERTEBRAL: Right: 102.3 antegrade Left: 102.3 antegrade Elevated flow velocities and ICA/CCA ratios have been found to correlate with increased degrees of vessel stenosis, calculated as percentage of diameter relative to a normal segment of distal ICA/CCA FINDINGS: Limited exam due to patient motion. No flow is seen in the right internal carotid artery suggesting o cclusion at its origin. Prominent calcified plaque is seen at the left carotid bulb. CONCLUSION: 1. Right ICA occlusion at its origin. 2. Prominent left carotid bulb calcified plaque but no evidence of hemodynamically significant caroti d stenosis on the left. Karel Orozco MD on May 21, 2017 at 21:41 Board Certified Radiologist. This report was verified electronically.
[2017-05-22] VITALS (9 sets, daily range): BP systolic 130–188; BP diastolic 67–93; PULSE 19–87; RESP 18–20; TEMP 97.1–98.7; O2SAT 60–100
[2017-05-22] MEDS: HEPARIN SODIUM - SQ 10,000 UNITS/ML VIAL SQ SCH ×3 (01:34→17:21)
[2017-05-22] MEDS: SODIUM CHLOR 0.9% 1000 ML INJ 1,000 ML IV SCH ×2 (06:43→23:04)
[2017-05-22] MEDS: INSULIN ASPART SUPPLEMENTAL SCALE SQ SCH ×4 (08:00→21:00)
[2017-05-22] MEDS: RESP: ALBUTEROL 2.5 MG/IPRATROPIUM 0.5 MG NEB (PRN) NEB ×2 (08:06→21:34)
[2017-05-22] MEDS: levETIRAcetam 500 MG TAB PO SCH ×2 (10:06→22:58)
[2017-05-22] MEDS: SODIUM CHLORIDE 0.9% FLUSH 10 ML FLUSH IV FLUSH SCH ×2 (10:07→22:56)
[2017-05-22] MEDS: DOCUSATE SODIUM 50 MG/SENNA 8.6 MG TAB PO SCH ×2 (10:07→22:59)
--- NOTE | 2017-05-22 12:24 | HHI.PR ---
Review/Management Diagnosis 1. Encephalopathy. - Associated possible seizure-like activity and hallucinations with postictal confusion state of double incontinence. - Nonfocal neurological exam, rapidly improving symptoms, start of symptoms outside the therapeutic window of IV TPA thus the patient is deemed not a candidate for IV TAP. 2. Carotid artery stenosis, occlusion of the right ICA and occluded right vertebral artery. 3. Atrial fibrillation. 4. Diabetes mellitus. 5. COPD. Plan - Neuro checks q. one hourly - Keppra 500 mg twice daily - Seizure precautions. - Aspirin - Goal blood pressure 135-40/75-80. - I discussed the case with the family Diagnosis/Plan: Subjective Subjective Comments No acute events reported Patient is asleep during the encounter and brother at the bed side Active Medications Current Medications Medications (Trade) Dose Ordered Sig/Shauna Route Start Time Stop Time Status Last Admin Sodium Chloride 1,000 ml @ 70 mls/hr [id number] IV 05/21/17 16:04 05/22/17 06:43 (NS Flush) 2 ml UNSCH PRN IV FLUSH 05/21/17 16:15 (NS Flush) 2 ml BID IV FLUSH 05/21/17 21:00 05/22/17 10:07 (Tylenol) 650 mg Q4H PRN PO 05/21/17 16:15 (Zofran Inj) 4 mg Q6H PRN IVP 05/21/17 16:15 (Heparin Inj) 5,000 units Q8H SQ 05/21/17 17:00 05/22/17 10:07 (Narcan Inj) 0.4 mg UNSCH PRN IV PUSH 05/21/17 16:15 (Aysha-Colace) 1 tab BID PO 05/21/17 21:00 05/22/17 10:07 (Milk Of Magnesia Liq) 30 ml Q12H PRN PO 05/21/17 16:15 (Senokot) 17.2 mg Q12H PRN PO 05/21/17 16:15 (Dulcolax Supp) 10 mg DAILY PRN RECTAL 05/21/17 16:15 (Lactulose Liq) 30 ml DAILY PRN PO 05/21/17 16:15 (D50w (Vial) Inj) 50 ml UNSCH PRN IV PUSH 05/21/17 16:15 (Glucagon Inj) 1 mg UNSCH PRN OTHER 05/21/17 16:15 (NovoLOG SUPPLEMENTAL SCALE) 1 ACHS SLIDING SCALE SQ 05/21/17 17:00 05/21/17 21:28 (Duoneb Neb) 1 ampule Q4HR NEB PRN NEB 05/21/17 16:15 05/22/17 08:06 (Ativan Inj) 1 mg Q15M PRN IV PUSH 05/21/17 16:15 Miscellaneous Information HOLD METFORMIN FOR... Q24H .XX 05/21/17 14:17 05/23/17 14:16 (Keppra) 500 mg Q12HR PO 05/21/17 21:00 05/22/17 10:06 Allergies Allergies Coded Allergies No Known Allergies (Verified Adverse Reaction, Unknown, 05/21/17) Review of Systems All other ROS: ROS reviewed as documented in chart Exam I&O / VS Vital Signs Date Time Temp Pulse Resp B/P (MAP) Pulse Ox O2 Delivery O2 Flow Rate FiO2 05/22/17 09:10 98.0 87 18 183/93 (123) 94 05/22/17 08:07 94 Nasal Cannula 3.00 05/22/17 04:26 97.1 19 19 188/84 (118) 94 05/22/17 01:14 98.4 71 19 172/84 (113) 94 05/21/17 20:28 97.4 99 19 173/71 (105) 97 05/21/17 18:23 97.8 66 18 206/96 (132) 98 05/21/17 16:59 65 29 137/86 (103) 97 Nasal Cannula 2.00 05/21/17 15:08 71 22 193/95 (127) 98 Nasal Cannula 2.00 05/21/17 14:11 99 Nasal Cannula 2.00 05/21/17 14:10 58 22 201/93 (129) 96 Nasal Cannula 2.00 05/21/17 14:05 58 20 98 Room Air 05/21/17 13:38 70 20 184/88 (120) 96 05/21/17 13:35 97 Nasal Cannula 3.00 05/21/17 13:35 97 3.00 Exam Comments GENERAL: Awake,asleep during most of the encounter, overweight, poor historian. HEENT: Atraumatic, normocephalic. Intact hearing, intact vision. The patient is [id number]. Intact vision. NECK: Supple. No signs of meningeal irritation. CARDIOVASCULAR: Irregularly irregular without murmurs. RESPIRATORY: Clear to auscultation. No wheezes. GASTROINTESTINAL: Soft, nontender. No organomegaly MUSCULOSKELETAL: Extremities without clubbing, cyanosis, bilateral ankle edema. NEUROLOGIC: Awake, alert, oriented to time, person, place. Mild slurring of speech. Speaks in a soft voice. Cranial nerves II-XII grossly intact. No facial asymmetry. No nystagmus. No diplopia. Intact facial sensation. Upper and lower extremities 5/5 bilateral symmetrical. Normal sensation throughout. Reflexes 1+ bilateral symmetrical, sluggish bilateral ankle reflexes. Objective Radiology Results Last 72 hours Impressions Neck CTA 05/21/17 1342 Signed Impressions: Service Date/Time: Sunday, May 21, 2017 13:56 - CONCLUSION: 1. Occluded right internal carotid artery. 2. Likely [id number], less than 50%%, stenosis of the left carotid origin. 3. Less than 40%% stenosis of the left internal carotid origin secondary to calcified plaque. 4. Above tandem left carotid stenoses may be hemodynamically significant given single carotid anterior circulation perfusion. 5. Occluded right vertebral artery. Brant Reid MD Head CTA 05/21/17 1342 Signed Impressions: Service Date/Time: Sunday, May 21, 2017 13:56 - CONCLUSION: 1. Occluded right internal carotid artery with reconstitution of the right anterior circulation through the anterior commuting artery. 2. Small caliber right vertebral artery which may reflect a more proximal flow-limiting lesion. 3. Distal left vertebral artery is patent with dominant left vertebral artery. Brant Reid MD Head CT 05/21/17 0000 Signed Impressions: Service Date/Time: Sunday, May 21, 2017 13:53 - CONCLUSION: Stable brain appearance with no acute intracranial findings. Armen Ontiveros MD Carotid Artery Ultrasound 05/21/17 0000 Signed Impressions: Service Date/Time: Sunday, May 21, 2017 20:20 - CONCLUSION: 1. Right ICA occlusion at its origin. 2. Prominent left carotid bulb calcified plaque but no evidence of hemodynamically significant carotid stenosis on the left. Karel Orozco MD Micro and Labs Laboratory Tests Test 05/21/17 13:45 White Blood Count 8.3 Red Blood Count 4.49 Hemoglobin 14.3 Bedside Hemoglobin 15.3 Hematocrit 41.8 Bedside Hematocrit 45.0 Mean Corpuscular Volume 93.1 Mean Corpuscular Hemoglobin 31.9 Mean Corpuscular Hemoglobin Concent 34.3 Red Cell Distribution Width 15.9 Platelet Count 242 Mean Platelet Volume 8.4 Neutrophils (%) (Auto) 87.8 Lymphocytes (%) (Auto) 7.2 Monocytes (%) (Auto) 4.8 Eosinophils (%) (Auto) 0.0 Basophils (%) (Auto) 0.2 Neutrophils # (Auto) 7.3 Lymphocytes # (Auto) 0.6 Monocytes # (Auto) 0.4 Eosinophils # (Auto) 0.0 Basophils # (Auto) 0.0 CBC Comment DIFF FINAL Differential Comment Prothrombin Time 10.8 Prothromb Time International Ratio 1.1 Activated Partial Thromboplast Time 26.4 Fibrinogen 368 Bedside Sodium 141 Bedside Potassium 3.5 Bedside Chloride 99 Bedside Blood Urea Nitrogen 21 Bedside Creatinine 1.3 Bedside Glucose 209 Total Creatine Kinase 78 Troponin I LESS THAN 0.02 Yousif Boyle MD May 22, 2017 12:24
--- NOTE | 2017-05-22 12:53 | HHI.PR ---
Subjective Remarks Patient seen and examined this morning. at bedside. He is hungry and putting sauce on his burger. says he is a bit confused and is 40% like him self. She reports his memory is not good. He uses CPAP at night at home. Nurse reports he ate his breakfast this am without difficulty. Objective Vital Signs Date Time Temp Pulse Resp B/P (MAP) Pulse Ox O2 Delivery O2 Flow Rate FiO2 05/22/17 09:10 98.0 87 18 183/93 (123) 94 05/22/17 08:07 94 Nasal Cannula 3.00 05/22/17 04:26 97.1 19 19 188/84 (118) 94 05/22/17 01:14 98.4 71 19 172/84 (113) 94 05/21/17 20:28 97.4 99 19 173/71 (105) 97 05/21/17 18:23 97.8 66 18 206/96 (132) 98 05/21/17 16:59 65 29 137/86 (103) 97 Nasal Cannula 2.00 05/21/17 15:08 71 22 193/95 (127) 98 Nasal Cannula 2.00 05/21/17 14:11 99 Nasal Cannula 2.00 05/21/17 14:10 58 22 201/93 (129) 96 Nasal Cannula 2.00 05/21/17 14:05 58 20 98 Room Air 05/21/17 13:38 70 20 184/88 (120) 96 05/21/17 13:35 97 Nasal Cannula 3.00 05/21/17 13:35 97 3.00 Result Diagram: 05/21/17 1345 Imaging Last Impressions Neck CTA 05/21/17 1342 Signed Impressions: Service Date/Time: Sunday, May 21, 2017 13:56 - CONCLUSION: 1. Occluded right internal carotid artery. 2. Likely [id number], less than 50%%, stenosis of the left carotid origin. 3. Less than 40%% stenosis of the left internal carotid origin secondary to calcified plaque. 4. Above tandem left carotid stenoses may be hemodynamically significant given single carotid anterior circulation perfusion. 5. Occluded right vertebral artery. Brant Reid MD Head CTA 05/21/17 1342 Signed Impressions: Service Date/Time: Sunday, May 21, 2017 13:56 - CONCLUSION: 1. Occluded right internal carotid artery with reconstitution of the right anterior circulation through the anterior commuting artery. 2. Small caliber right vertebral artery which may reflect a more proximal flow-limiting lesion. 3. Distal left vertebral artery is patent with dominant left vertebral artery. Brant Reid MD Head CT 05/21/17 0000 Signed Impressions: Service Date/Time: Sunday, May 21, 2017 13:53 - CONCLUSION: Stable brain appearance with no acute intracranial findings. Armen Ontiveros MD Carotid Artery Ultrasound 05/21/17 0000 Signed Impressions: Service Date/Time: Sunday, May 21, 2017 20:20 - CONCLUSION: 1. Right ICA occlusion at its origin. 2. Prominent left carotid bulb calcified plaque but no evidence of hemodynamically significant carotid stenosis on the left. Karel Orozco MD Objective Remarks GENERAL: sitting on the side of the bed, nad SKIN: Warm and dry. HEAD: Normocephalic. EYES: No scleral icterus. No injection or drainage. NECK: Supple, trachea midline. No JVD or lymphadenopathy. CARDIOVASCULAR: irregular rhythm RESPIRATORY: Breath sounds equal bilaterally. No accessory muscle use. GASTROINTESTINAL: Abdomen soft, non-tender, nondistended. MUSCULOSKELETAL: No cyanosis, or edema. No calf tenderness. Neuro: afocal. Answers questions appropriately. A/P Problem List: (1) CHF (congestive heart failure) ICD Code: I50.9 - Heart failure, unspecified (2) Hyperlipemia ICD Code: E78.5 - Hyperlipidemia, unspecified (3) Hypertension ICD Code: I10 - Essential (primary) hypertension (4) CVA (cerebral vascular accident) ICD Code: I63.9 - Cerebral infarction, unspecified (5) Type 2 diabetes mellitus ICD Code: E11.9 - Type 2 diabetes mellitus without complications (6) COPD with acute exacerbation ICD Code: J44.1 - Chronic obstructive pulmonary disease with (acute) exacerbation (7) Encephalopathy ICD Code: G93.40 - Encephalopathy, unspecified Status: Acute Assessment and Plan 76-year-old male with a past month was significant for carotid artery stenosis, hypertension, diabetes, and COPD presents to the ED for altered mental status and question of seizure-like activity. Possible seizure/hallucinations/altered mental status Stroke alert - Seen and evaluated by neurology. Possible seizure-like activity and hallucinations with postictal confusion state. Nonfocal neuro exam that was improving. He was outside of the window of TPA, deemed not a candidate. - MRI brain showed no acute infarct - Started on Keppra 500 mg twice a day - Seizure precautions - Go blood pressure 135-140 over 70/80 - EEG and echo pending Carotid artery stenosis - Neck CTA showed included right internal carotid artery with stenosis of the left internal carotid and included right vertebral artery - Vascular surgery consulted: Further neuro workup pending. Left side there is a mild stenosis which is non hemodynamically significant. Right vertebral artery occlusion. Atrial fibrillation - Patient not on anticoagulation - Echo pending - Resuming metoprol 50 mg twice a day Diabetes mellitus - SSI - Monitor blood glucose - Holding home metformin and glyburide COPD - DuoNeb's - Continue home combivent Hypertension - Continue home antihypertensives, goal BP noted above CHF - continue ACEI, BBlock, lasix Depression - continue home medications FEN Heart healthy diet after bedside swallow eval NS at 70 cc/hr Electrolytes: monitor and replete prn Heparin Discharge Planning d/c pending neuro and vascular clearance Barb Moreau MD May 22, 2017 12:53
[2017-05-22] MEDS ORDERED: NON-FORMULARY DRUG (Ipratropium-Albuterol Inh (Combivent Respimat Inh) 1 PUFF) INH SCH (13:00)
[2017-05-22] MEDS: LISINOPRIL 20 MG TAB PO SCH (13:47)
[2017-05-22] MEDS: METOPROLOL TARTRATE 50 MG TAB PO SCH ×2 (13:47→22:59)
--- NOTE | 2017-05-22 13:51 | ECHRPT ---
Indication: a fib flutter CONCLUSIONS BP: / HR: Rhythm: MEASUREMENTS (Male / Female) Normal Values Technical Quality:Very technically difficult study 2D ECHO LV Diastolic Diameter PLAX 5.1 cm 4.2 - 5.9 / 3.9 - 5.3 cm LV Systolic Diameter PLAX 4.5 cm IVS Diastolic Thickness 1.5 cm 0.6 - 1.0 / 0.6 - 0.9 cm LVPW Diastolic Thickness 1.1 cm 0.6 - 1.0 / 0.6 - 0.9 cm LV Relative Wall Thickness 0.5 RV Internal Dim ED PLAX 2.1 cm M-MODE Aortic Root Diameter MM 3.5 cm LA Systolic Diameter MM 4.3 cm LA Ao Ratio MM 1.2 AV Cusp Separation MM 2.5 cm DOPPLER LV E' Lateral Velocity 9.0 cm/s LV E' Septal Velocity 8.7 cm/s TR Peak Velocity 238.0 cm/s TR Peak Gradient 22.7 mmHg Right Atrial Pressure 10.0 mmHg Pulmonary Artery Systolic Pressu 32.7 mmHg Right Ventricular Systolic Press 32.7 mmHg FINDINGS LEFT VENTRICLE Normal left ventricular size. The left ventricular systolic function is difficult to asses due to difficult apical views -suspect normal mildly impaired. Consider MUGA if accurate EF needed. there was limited left ventricular wall motion assessment due to poor endocardial visualization. RIGHT VENTRICLE Normal right ventricular size and systolic function. LEFT ATRIUM The left atrial size is normal. RIGHT ATRIUM The right atrial size is normal. ATRIAL SEPTUM Normal atrial septal thickness without atrial level shunting by limited color doppler interrogation. AORTA The aortic root and proximal ascending aorta are normal in size on limited imaging. MITRAL VALVE Mild mitral annular calcification. Mild mitral valve regurgitation. AORTIC VALVE Trileaflet aortic valve. No aortic valve stenosis or regurgitation. TRICUSPID VALVE Structurally normal tricuspid valve. There is mild tricuspid valve regurgitation. The estimated pulmonary arterial pressure is 32.7 mmHg. PULMONARY VALVE No pulmonary valve regurgitation or stenosis. VESSELS The inferior vena cava is normal in size. PERICARDIUM No pericardial effusion. Ilya Magallanes MD (Electronically Signed) Final Date:22 May 2017 13:50
--- NOTE | 2017-05-22 15:07 | EKG ---
Date Performed: 05/21/2017 Time Performed: 14:11:06 PTAGE: 76 years EKG: ATRIAL FIBRILLATION WITH SLOW VENTRICULAR RESPONSE NONSPECIFIC T-WAVE ABNORMALITY ABNORMAL RHYTHM ECG PREVIOUS TRACING : 05/20/2017 15.38 Since previous tracing, no significant change noted DOCTOR: Ilya Magallanes Interpretating Date/Time 05/22/2017 15:07:07
--- NOTE | 2017-05-22 15:33 | PD.CAR.PN ---
CVT Progress Note Subjective/Hospital Course: 05/22/16 Patient with confusion symptoms of stroke and the global encephalopathy CTA reveals right internal carotid artery occlusion and because MRA was somewhat questionable on the same a ordered an ultrasound of the carotids Duplex ultrasound of carotids confirms right internal carotid artery occlusion and fairly normal left carotid artery Unfortunately from surgical point there is nothing to do it this time for once vessel is occluded no surgery is possible Will sign off Thanks J Objective: Vital Signs Date Time Temp Pulse Resp B/P (MAP) Pulse Ox O2 Delivery O2 Flow Rate FiO2 05/22/17 12:00 98.1 83 18 143/81 (101) 98 05/22/17 09:10 98.0 87 18 183/93 (123) 94 05/22/17 08:07 94 Nasal Cannula 3.00 05/22/17 04:26 97.1 19 19 188/84 (118) 94 05/22/17 01:14 98.4 71 19 172/84 (113) 94 05/21/17 20:28 97.4 99 19 173/71 (105) 97 05/21/17 18:23 97.8 66 18 206/96 (132) 98 05/21/17 16:59 65 29 137/86 (103) 97 Nasal Cannula 2.00 Result Diagram: 05/21/17 1345 Bertin Ayers MD May 22, 2017 15:33
[2017-05-22 16:07] LABS: BASOPHIL % 0.2 % (0.0-2.0); EOSINOPHIL % 0.2 % (0.0-4.0); HEMATOCRIT 40.7 % (39.0-51.0); HEMOGLOBIN 13.1 GM/DL (13.0-17.0); LYMPH % 12.7 % (9.0-44.0); LYMPHOCYTE # 1.3 TH/MM3 (1.0-4.8); MEAN CELL VOLUME 94.4 FL (80.0-100.0); MEAN CORPUSCULAR HEMOGLOBIN 30.4 PG (27.0-34.0); MEAN CORPUSCULAR HGB CONC 32.2 % (32.0-36.0); MEAN PLATELET VOLUME 8.5 FL (7.0-11.0); NEUT % 76.9 % (16.0-70.0); PLATELET COUNT 224 TH/MM3 (150-450); RED BLOOD COUNT 4.32 MIL/MM3 (4.50-5.90); RED CELL DISTRIBUTION WIDTH 16.1 % (11.6-17.2); WHITE BLOOD COUNT 10.4 TH/MM3 (4.0-11.0)
[2017-05-22 16:27] LABS: BICARBONATE 30.6 MEQ/L (21.0-32.0); CALCIUM 8.5 MG/DL (8.5-10.1); CREATININE 1.29 MG/DL (0.60-1.30)
[2017-05-22] MEDS: ALBUTEROL SULFATE 90 MCG/ACT HFA 8 GM INHALER INH SCH (18:00)
[2017-05-22] MEDS ORDERED: IBUPROFEN 600 MG TAB PO PRN (19:00)
[2017-05-22] MEDS: traZODone HCL 50 MG TAB PO SCH (22:59)
[2017-05-22] MEDS: BUDESONIDE-FORMOTEROL 160/4.5 MCG INHALER INH SCH (23:00)
[2017-05-23] VITALS (13 sets, daily range): BP systolic 126–180; BP diastolic 66–90; PULSE 58–89; RESP 18–21; TEMP 97.4–98.3; O2SAT 94–100
[2017-05-23] MEDS: HEPARIN SODIUM - SQ 10,000 UNITS/ML VIAL SQ SCH ×2 (01:35→08:30)
[2017-05-23] MEDS ORDERED: POTASSIUM CHLORIDE 25 MEQ EFFERVESCENT TAB PO ONE (02:30)
[2017-05-23 03:07] LABS: AUTOMATED NEUTROPHIL # 8.1 TH/MM3 (1.8-7.7); BASOPHIL % 0.3 % (0.0-2.0); EOSINOPHIL % 0.2 % (0.0-4.0); HEMATOCRIT 39.9 % (39.0-51.0); HEMOGLOBIN 12.9 GM/DL (13.0-17.0); LYMPH % 11.3 % (9.0-44.0); LYMPHOCYTE # 1.2 TH/MM3 (1.0-4.8); MEAN CELL VOLUME 94.1 FL (80.0-100.0); MEAN CORPUSCULAR HEMOGLOBIN 30.5 PG (27.0-34.0); MEAN CORPUSCULAR HGB CONC 32.4 % (32.0-36.0); MEAN PLATELET VOLUME 8.3 FL (7.0-11.0); MONO % 10.4 % (0.0-8.0); MONOCYTE # 1.1 TH/MM3 (0-0.9); NEUT % 77.8 % (16.0-70.0); PLATELET COUNT 207 TH/MM3 (150-450); RED BLOOD COUNT 4.24 MIL/MM3 (4.50-5.90); RED CELL DISTRIBUTION WIDTH 16.2 % (11.6-17.2); WHITE BLOOD COUNT 10.4 TH/MM3 (4.0-11.0)
[2017-05-23 03:18] LABS: BICARBONATE 33.6 MEQ/L (21.0-32.0); CALCIUM 8.3 MG/DL (8.5-10.1); CREATININE 1.17 MG/DL (0.60-1.30); MAGNESIUM 2.8 MG/DL (1.5-2.5)
[2017-05-23 03:22] LABS: TROPONIN I 0.03 NG/ML (0.02-0.05)
[2017-05-23] MEDS: INSULIN ASPART SUPPLEMENTAL SCALE SQ SCH ×4 (08:00→22:29)
--- NOTE | 2017-05-23 08:23 | MG ---
cc: RHETT BOYLE MD Lab No: Date: 05/23/2017 Age: Sex: M Race: DATE OF [address] Torres MEDICAL HISTORY Dojz-im-jcrezgi, neck pain, hypertension, COPD, hyperlipidemia, sleep apnea, snoring, dyspnea, tobacco and caffeine use, prostate cancer, diabetes, falls. He presented with stroke alert. The patient was grunting upon arrival, not following commands. MEDICATIONS Heparin. DESCRIPTION Background activity is 8-9 Hz alpha located posteriorly, low-voltage. There is excessive movement and muscle artifact. During the recording the patient transitioned to stage II sleep with slowing of the background and appearance of sleep spindles. Hyperventilation was omitted. Photic stimulation did not elicit driving response. There were no electrographic seizures or epileptiform discharges noted during the recording. INTERPRETATION This is a normal awake, drowsy and asleep EEG. The recording is contaminated by excess movement and muscle artifact. There were no electrographic seizures or epileptiform discharges noted during the recording. Clinical correlation is recommended. Rhett Boyle MD RGO/TLL /12:01 AM /8:09 AM AZEEM
[2017-05-23] MEDS: LISINOPRIL 20 MG TAB PO SCH (08:29)
[2017-05-23] MEDS: DULoxetine HCl DR 20 MG CAP PO SCH (08:29)
[2017-05-23] MEDS: FUROSEMIDE 40 MG TAB PO SCH (08:30)
[2017-05-23] MEDS: levETIRAcetam 500 MG TAB PO SCH ×2 (08:30→22:28)
[2017-05-23] MEDS: DOCUSATE SODIUM 50 MG/SENNA 8.6 MG TAB PO SCH ×2 (08:31→22:29)
[2017-05-23] MEDS: TIOTROPIUM BROMIDE 18 MCG INH INH SCH ×2 (08:31→08:40)
[2017-05-23] MEDS: SODIUM CHLORIDE 0.9% FLUSH 10 ML FLUSH IV FLUSH SCH ×2 (08:34→22:30)
[2017-05-23] MEDS: BUDESONIDE-FORMOTEROL 160/4.5 MCG INHALER INH SCH ×2 (08:39→22:30)
[2017-05-23] MEDS: ALBUTEROL SULFATE 90 MCG/ACT HFA 8 GM INHALER INH SCH ×3 (08:39→18:00)
--- NOTE | 2017-05-23 09:58 | HHI.PR ---
Subjective Remarks Patient seen and examined this morning. at bedside. BP is elevated. Overnight had run of V-Tach, also had low oxygen saturation at that time. Family is at bedside. Cardiology in the room. He is sitting on the side of the bed. reports he has had difficulty breathing for the past three months. reports knowing the patient has A-Fib, but not on any anticoagulation. He denies current chest pressure. Objective Vital Signs Date Time Temp Pulse Resp B/P (MAP) Pulse Ox O2 Delivery O2 Flow Rate FiO2 05/23/17 08:00 97.4 66 18 180/82 (114) 100 05/23/17 05:45 98.3 74 21 174/79 (110) 98 05/23/17 05:00 95 60 05/23/17 02:32 63 05/23/17 01:00 98.1 67 21 126/66 (86) 100 05/23/17 00:00 58 05/22/17 22:30 98.7 73 20 130/67 (88) 100 05/22/17 21:45 60 05/22/17 19:42 66 05/22/17 16:00 97.8 60 18 159/68 (98) 97 05/22/17 12:00 98.1 83 18 143/81 (101) 98 I/O 05/22/17 05/22/17 05/22/17 05/23/17 05/23/17 05/23/17 06:59 14:59 22:59 06:59 14:59 22:59 Intake Total 800 ml 1500 ml Output Total 0 ml Balance 800 ml 1500 ml Intake Oral 800 ml 500 ml IV Total 1000 ml Output Urine Total 0 ml # Voids 2 # Bowel Movements 0 0 Result Diagram: 05/23/17 0237 05/23/17 0237 Imaging Last Impressions Neck CTA 05/21/17 1342 Signed Impressions: Service Date/Time: Sunday, May 21, 2017 13:56 - CONCLUSION: 1. Occluded right internal carotid artery. 2. Likely [id number], less than 50%%, stenosis of the left carotid origin. 3. Less than 40%% stenosis of the left internal carotid origin secondary to calcified plaque. 4. Above tandem left carotid stenoses may be hemodynamically significant given single carotid anterior circulation perfusion. 5. Occluded right vertebral artery. Brant Reid MD Head CTA 05/21/17 1342 Signed Impressions: Service Date/Time: Sunday, May 21, 2017 13:56 - CONCLUSION: 1. Occluded right internal carotid artery with reconstitution of the right anterior circulation through the anterior commuting artery. 2. Small caliber right vertebral artery which may reflect a more proximal flow-limiting lesion. 3. Distal left vertebral artery is patent with dominant left vertebral artery. Brant Reid MD Head CT 05/21/17 0000 Signed Impressions: Service Date/Time: Sunday, May 21, 2017 13:53 - CONCLUSION: Stable brain appearance with no acute intracranial findings. Armen Ontiveros MD Carotid Artery Ultrasound 05/21/17 0000 Signed Impressions: Service Date/Time: Sunday, May 21, 2017 20:20 - CONCLUSION: 1. Right ICA occlusion at its origin. 2. Prominent left carotid bulb calcified plaque but no evidence of hemodynamically significant carotid stenosis on the left. Karel Orozco MD Objective Remarks GENERAL: sitting on the side of the bed, nad SKIN: Warm and dry. HEAD: Normocephalic. EYES: No scleral icterus. No injection or drainage. NECK: Supple, trachea midline. No JVD or lymphadenopathy. CARDIOVASCULAR: irregular rhythm RESPIRATORY: Breath sounds equal bilaterally. No accessory muscle use. GASTROINTESTINAL: Abdomen soft, non-tender, nondistended. MUSCULOSKELETAL: No cyanosis, or edema. No calf tenderness. Neuro: afocal. Answers questions appropriately. A/P Problem List: (1) CHF (congestive heart failure) ICD Code: I50.9 - Heart failure, unspecified (2) Hyperlipemia ICD Code: E78.5 - Hyperlipidemia, unspecified (3) Hypertension ICD Code: I10 - Essential (primary) hypertension (4) CVA (cerebral vascular accident) ICD Code: I63.9 - Cerebral infarction, unspecified (5) Type 2 diabetes mellitus ICD Code: E11.9 - Type 2 diabetes mellitus without complications (6) COPD with acute exacerbation ICD Code: J44.1 - Chronic obstructive pulmonary disease with (acute) exacerbation (7) Encephalopathy ICD Code: G93.40 - Encephalopathy, unspecified Status: Acute Assessment and Plan 76-year-old male with a past month was significant for carotid artery stenosis, hypertension, diabetes, and COPD presents to the ED for altered mental status and question of seizure-like activity. V-tach - case discussed with Dr. Magallanes, needs his coronary a investigated - due to inability to lay flat but unable to do at this time - Start on eliquis 2.5 Po BID - started on metoprolol 25 mg BID Possible seizure/hallucinations/altered mental status Stroke alert - Seen and evaluated by neurology. Possible seizure-like activity and hallucinations with postictal confusion state. Nonfocal neuro exam that was improving. He was outside of the window of TPA, deemed not a candidate. - MRI brain showed no acute infarct - Started on Keppra 500 mg twice a day - Seizure precautions - Goal blood pressure 135-140 over 70/80 - EEG shows no epileptiform discharges. - Echo normal EF, with aortic stenosis Carotid artery stenosis - Neck CTA showed included right internal carotid artery - Vascular surgery consulted: no surgical intervention on right which is completely occluded right carotid artery, left is still patent Atrial fibrillation - Patient not on anticoagulation - Echo noted Diabetes mellitus - SSI - Monitor blood glucose - Holding home metformin and glyburide COPD - DuoNeb's - Continue home combivent - consult Pulm - likely needs home O2, will order walk test Hypertension - Continue home antihypertensives, goal BP noted above CHF - continue ACEI, BBlock, lasix Depression - continue home medications FEN Heart healthy diet NS at [facility] Electrolytes: monitor and replete prn Heparin Discharge Planning d/c pulm eval - will go home on eliquis and keppra - pt eval - home walk test - home likely tomorrow or wednesday Barb Moreau MD May 23, 2017 09:58
--- NOTE | 2017-05-23 10:17 | ECHRPT ---
Indication: CONCLUSIONS The left ventricular systolic function is mildly reduced with an estimated ejection fraction in the range of 45- 50%. Normal left ventricular size. Mild concentric left ventricular hypertrophy. There was limited left ventricular wall motion assessment due to poor endocardial visualization. Mitral annular calcification is present. Trace mitral valve regurgitation. Aortic valve sclerosis is present. There is trace tricuspid valve regurgitation. The estimated pulmonary arterial pressure is 39.4 mmHg. Trivial pulmonary valve regurgitation. BP: / HR: Rhythm: Sinus MEASUREMENTS (Male / Female) Normal Values Technical Quality:Poor 2D ECHO LV Diastolic Diameter PLAX 5.4 cm 4.2 - 5.9 / 3.9 - 5.3 cm LV Systolic Diameter PLAX 4.3 cm IVS Diastolic Thickness 1.3 cm 0.6 - 1.0 / 0.6 - 0.9 cm LVPW Diastolic Thickness 1.3 cm 0.6 - 1.0 / 0.6 - 0.9 cm LV Relative Wall Thickness 0.5 LVOT Diameter 1.9 cm LV Ejection Fraction MOD 4C 51.9 % LV Ejection Fraction 4C AL 54.0 % M-MODE Aortic Root Diameter MM 3.1 cm LA Systolic Diameter MM 3.9 cm LA Ao Ratio MM 1.3 AV Cusp Separation MM 1.8 cm DOPPLER AV Peak Velocity 143.0 cm/s AV Peak Gradient 8.2 mmHg LVOT Peak Velocity 94.3 cm/s LVOT Peak Gradient 3.6 mmHg AV Area Cont Eq pk 1.9 cm MV Area PHT 4.6 cm Mitral E Point Velocity 117.0 cm/s Mitral A Point Velocity 59.2 cm/s Mitral E to A Ratio 2.0 LV E' Lateral Velocity 8.1 cm/s Mitral E to LV E' Lateral Ratio 14.5 LV E' Septal Velocity 6.5 cm/s Mitral E to LV E' Septal Ratio 17.9 TR Peak Velocity 271.0 cm/s TR Peak Gradient 29.4 mmHg Right Atrial Pressure 10.0 mmHg Pulmonary Artery Systolic Pressu 39.4 mmHg Right Ventricular Systolic Press 39.4 mmHg PV Peak Velocity 125.0 cm/s PV Peak Gradient 6.3 mmHg FINDINGS LEFT VENTRICLE The left ventricular systolic function is mildly reduced with an estimated ejection fraction in the range of 45- 50%. Normal left ventricular size. Mild concentric left ventricular hypertrophy. There was limited left ventricular wall motion assessment due to poor endocardial visualization. RIGHT VENTRICLE Normal right ventricular size and systolic function. LEFT ATRIUM The left atrial size is normal. RIGHT ATRIUM The right atrial size is normal. ATRIAL SEPTUM Normal atrial septal thickness without atrial level shunting by limited color doppler interrogation. AORTA The aortic root and proximal ascending aorta are normal in size on limited imaging. MITRAL VALVE Structurally normal mitral valve. Mitral annular calcification is present. Trace mitral valve regurgitation. AORTIC VALVE Aortic valve sclerosis is present. TRICUSPID VALVE Structurally normal tricuspid valve. There is trace tricuspid valve regurgitation. The estimated pulmonary arterial pressure is 39.4 mmHg. PULMONARY VALVE Trivial pulmonary valve regurgitation. VESSELS The inferior vena cava is normal in size. PERICARDIUM No pericardial effusion. Ilya Magallanes MD (Electronically Signed) Final Date:23 May 2017 10:16
--- NOTE | 2017-05-23 11:29 | MB ---
cc: FORD ANTONIO M.D. DATE OF CONSULTATION: 05/23/2017 REASON FOR CONSULTATION: Evaluation of a run of V-tach. HISTORY OF PRESENT ILLNESS: Keron Prescott is a complicated 76-year-old man with multiple medical problems. He has carotid disease with total occlusion of the right internal carotid artery. He has hypertension. He has diabetes. He has COPD which is particularly severe. He has smoked his entire life starting at age 19. He has never quit. He has very severe COPD. His O2 sat was 60% at one point last night. He has a history of prostate problems. He has had problems with altered mental status and questionable seizure activity. He has had brain MRI showing strokes on the left side. He has had hallucinations and he has had one departure from the hospital against medical advice. He was brought in for generalized seizure-like activity. The patient is very hard of hearing. He is confused. He does not know where he is, but he was able to say who the president is. He denied chest pain. He is sitting bolt upright on the side of the bed with use of accessory muscles to breathe. He is on oxygen at the current time. PAST MEDICAL HISTORY: 1. Carotid artery disease. 2. Hypertension. 3. Type 2 diabetes. 4. History of prostate cancer. 5. A-fib, duration unclear, but has not been on anticoagulation or severe COPD. PAST SURGICAL HISTORY: 1. Prostatectomy. 2. Cataract surgery. FAMILY HISTORY: Father from abdominal aortic aneurysm rupture. SOCIAL HISTORY: Notable for smoking since age 19, no alcohol use. MEDICATIONS: 1. Cymbalta. 2. Furosemide 40 milligrams daily. 3. Spiriva. 4. Symbicort. 5. Trazodone 25 mg at bedtime. 6. Ibuprofen p.r.n. 7. Albuterol inhalers t.i.d. 8. Lisinopril 20 mg daily. 9. Keppra 500 mg b.i.d. 10. Insulin sliding scale. 11. Metoprolol 50 mg p.o. b.i.d. currently on hold. ALLERGIES None known. REVIEW OF SYSTEMS: No other abnormalities detected. PHYSICAL EXAMINATION: Reveals an obese elderly white male sitting on the side of the bed using accessory muscles to breathe. Vital signs: Show that he has had intermittent hypertension. He is in A-fib with a controlled rate. He has had some short pauses at night. He had a 25 beat run of ventricular tachycardia at 2:11 a.m. with a heart rate of about 15. Of note, he had hypoxia documented last night with a sat of 60% at 9:45 p.m. The other sats have been okay. HEENT: Exam unremarkable. NECK: I could not appreciate bruits. CHEST: Severely diminished breath sounds throughout. I did not hear any wheezing. CARDIAC: S1-S2, regular rate and rhythm. I could not appreciate murmurs or gallops. ABDOMEN: Markedly obese. EXTREMITIES: Reveal no edema. Pedal pulses are diminished. EKG demonstrates A-fib with a controlled ventricular rate, nonspecific T-wave flattening. LABORATORY DATA: Shows two normal troponins. Hematocrit is 39.9, creatinine is 1.17, magnesium 2.8. Potassium 4.0. It was 3.4 yesterday. IMPRESSION: 1. Severely ill 76-year-old male with evidence for stroke, A-fib, unknown duration, not on anticoagulation. 2. Hypertension. 3. Carotid disease. 4. High likelihood of coronary artery disease, based on his history and prolonged run of V-tach at a rate of 115, question seizures. RECOMMENDATIONS: 2-D echo doppler is already performed showing LV function, either is normal or only mildly impaired. Ordinarily he would require workup for ischemia. At the present time, he is struggling to breathe, he was hypoxic last night. He is not a candidate for stress test or cardiac cath. Would advise continuous beta-dayanna but will reduce the dose from 50 b.i.d. to 25 b.i.d. Beta dayanna is usually the best course of therapy for V-tach. At some point he should have an ischemic evaluation. Will have to see how his course progresses. With the altered mental status and difficulty breathing, doing a cath would be very difficult right now. There is definitely no evidence for infarction and he is not complaining of any chest pain, so I don't see any immediate need to do it. Further therapy be determined. MD TEDDY Coy/GARRET /10:36 AM /10:57 AM
--- NOTE | 2017-05-23 11:32 | HHI.PR ---
Review/Management Diagnosis 1. Encephalopathy. 2. Associated possible seizure-like activity and hallucinations with postictal confusion state of double incontinence. 3. Nonfocal neurological exam, rapidly improving symptoms, start of symptoms outside the therapeutic window of IV TPA thus the patient is deemed not a candidate for IV TAP. 4. Carotid artery stenosis, occlusion of the right ICA and occluded right vertebral artery. 5. Atrial fibrillation. 6. Diabetes mellitus. 7. COPD. Plan - Neuro checks q. one hourly - Keppra 500 mg twice daily - Seizure precautions. - Aspirin - Goal blood pressure 135-40/75-80. - No further neurologic work up is needed - Please call for questions - Discussed case with the attending physician Diagnosis/Plan: Subjective Subjective Comments No acute events reported No headache No chest pain No dyspnea Active Medications Current Medications Medications (Trade) Dose Ordered Sig/Shauna Route Start Time Stop Time Status Last Admin (NS Flush) 2 ml UNSCH PRN IV FLUSH 05/21/17 16:15 (NS Flush) 2 ml BID IV FLUSH 05/21/17 21:00 05/23/17 08:34 (Tylenol) 650 mg Q4H PRN PO 05/21/17 16:15 (Zofran Inj) 4 mg Q6H PRN IVP 05/21/17 16:15 (Narcan Inj) 0.4 mg UNSCH PRN IV PUSH 05/21/17 16:15 (Aysha-Colace) 1 tab BID PO 05/21/17 21:00 05/23/17 08:31 (Milk Of Magnesia Liq) 30 ml Q12H PRN PO 05/21/17 16:15 (Senokot) 17.2 mg Q12H PRN PO 05/21/17 16:15 (Dulcolax Supp) 10 mg DAILY PRN RECTAL 05/21/17 16:15 (Lactulose Liq) 30 ml DAILY PRN PO 05/21/17 16:15 (D50w (Vial) Inj) 50 ml UNSCH PRN IV PUSH 05/21/17 16:15 (Glucagon Inj) 1 mg UNSCH PRN OTHER 05/21/17 16:15 (NovoLOG SUPPLEMENTAL SCALE) 1 ACHS SLIDING SCALE SQ 05/21/17 17:00 05/22/17 17:21 (Duoneb Neb) 1 ampule Q4HR NEB PRN NEB 05/21/17 16:15 05/22/17 21:34 (Ativan Inj) 1 mg Q15M PRN IV PUSH 05/21/17 16:15 Miscellaneous Information HOLD METFORMIN FOR... Q24H .XX 05/21/17 14:17 05/23/17 14:16 (Keppra) 500 mg Q12HR PO 05/21/17 21:00 05/23/17 08:30 (Symbicort 160-4.5 Mcg Inh) 1 puff Q12HR INH 05/22/17 21:00 05/23/17 08:39 (Cymbalta Dr) 20 mg DAILY PO 05/23/17 09:00 05/23/17 08:29 (Lasix) 40 mg DAILY PO 05/23/17 09:00 05/23/17 08:30 (Prinivil) 20 mg DAILY PO 05/22/17 13:00 05/23/17 08:29 (Lopressor) 50 mg BID PO 05/22/17 13:00 Future Hold 05/22/17 22:59 (Desyrel) 25 mg HS PO 05/22/17 21:00 05/22/17 22:59 (Spiriva Inh) 18 mcg DAILY INH 05/23/17 09:00 05/23/17 08:40 (Proair Hfa Inh) 1 puff TID INH 05/22/17 18:00 05/23/17 08:39 (Motrin) 600 mg Q8H PRN PO 05/22/17 19:00 (Lopressor) 25 mg Q12HR PO 05/23/17 21:00 (Eliquis) 2.5 mg BID PO 05/23/17 12:00 Allergies Allergies Coded Allergies No Known Allergies (Verified Adverse Reaction, Unknown, 05/21/17) Review of Systems All other ROS: ROS reviewed as documented in chart Exam I&O / VS Vital Signs Date Time Temp Pulse Resp B/P (MAP) Pulse Ox O2 Delivery O2 Flow Rate FiO2 05/23/17 08:00 97.4 66 18 180/82 (114) 100 05/23/17 05:45 98.3 74 21 174/79 (110) 98 05/23/17 05:00 95 60 05/23/17 02:32 63 05/23/17 01:00 98.1 67 21 126/66 (86) 100 05/23/17 00:00 58 05/22/17 22:30 98.7 73 20 130/67 (88) 100 05/22/17 21:45 60 05/22/17 19:42 66 05/22/17 16:00 97.8 60 18 159/68 (98) 97 05/22/17 12:00 98.1 83 18 143/81 (101) 98 Exam Comments GENERAL: Awake, alert, overweight, poor historian. HEENT: Atraumatic, normocephalic. Intact hearing, intact vision. The patient is [id number]. Intact vision. NECK: Supple. No signs of meningeal irritation. CARDIOVASCULAR: Irregularly irregular without murmurs. RESPIRATORY: Clear to auscultation. No wheezes. GASTROINTESTINAL: Soft, nontender. No organomegaly MUSCULOSKELETAL: Extremities without clubbing, cyanosis, bilateral ankle edema. NEUROLOGIC: Awake, alert, oriented to time, person, place. Mild slurring of speech. Speaks in a soft voice. Cranial nerves II-XII grossly intact. No facial asymmetry. No nystagmus. No diplopia. Intact facial sensation. Upper and lower extremities 5/5 bilateral symmetrical. Normal sensation throughout. Reflexes 1+ bilateral symmetrical, sluggish bilateral ankle reflexes. Objective Micro and Labs Laboratory Tests Test 05/22/17 15:40 05/23/17 02:37 White Blood Count 10.4 10.4 Red Blood Count 4.32 4.24 Hemoglobin 13.1 12.9 Hematocrit 40.7 39.9 Mean Corpuscular Volume 94.4 94.1 Mean Corpuscular Hemoglobin 30.4 30.5 Mean Corpuscular Hemoglobin Concent 32.2 32.4 Red Cell Distribution Width 16.1 16.2 Platelet Count 224 207 Mean Platelet Volume 8.5 8.3 Neutrophils (%) (Auto) 76.9 77.8 Lymphocytes (%) (Auto) 12.7 11.3 Monocytes (%) (Auto) 10.0 10.4 Eosinophils (%) (Auto) 0.2 0.2 Basophils (%) (Auto) 0.2 0.3 Neutrophils # (Auto) 8.0 8.1 Lymphocytes # (Auto) 1.3 1.2 Monocytes # (Auto) 1.0 1.1 Eosinophils # (Auto) 0.0 0.0 Basophils # (Auto) 0.0 0.0 CBC Comment DIFF FINAL DIFF FINAL Differential Comment Blood Urea Nitrogen 19 21 Creatinine 1.29 1.17 Random Glucose 175 126 Calcium Level 8.5 8.3 Sodium Level 140 143 Potassium Level 3.4 4.0 Chloride Level 103 106 Carbon Dioxide Level 30.6 33.6 Anion Gap 6 3 Estimat Glomerular Filtration Rate 54 61 Magnesium Level 2.8 Troponin I 0.03 B-Type Natriuretic Peptide 214 Yousif Boyle MD May 23, 2017 11:32
[2017-05-23] MEDS: APIXABAN 2.5 MG TABLET PO SCH ×2 (12:00→22:29)
--- NOTE | 2017-05-23 17:38 | EKG ---
Date Performed: 05/23/2017 Time Performed: 05:27:10 PTAGE: 76 years EKG: ATRIAL FIBRILLATION WITH SLOW VENTRICULAR RESPONSE NONSPECIFIC T-WAVE ABNORMALITY ABNORMAL RHYTHM ECG PREVIOUS TRACING : 05/21/2017 14.11 Since previous tracing, no significant change noted DOCTOR: Ilya Magallanes Interpretating Date/Time 05/23/2017 17:37:38
[2017-05-23] MEDS: traZODone HCL 50 MG TAB PO SCH (22:28)
[2017-05-23] MEDS: METOPROLOL TARTRATE 25 MG TAB PO SCH (22:29)
[2017-05-24] VITALS (14 sets, daily range): BP systolic 130–189; BP diastolic 69–88; PULSE 56–80; RESP 18–27; TEMP 97.3–98.6; O2SAT 95–100
[2017-05-24] MEDS: INSULIN ASPART SUPPLEMENTAL SCALE SQ SCH ×4 (08:00→20:44)
[2017-05-24] MEDS: DULoxetine HCl DR 20 MG CAP PO SCH (09:19)
[2017-05-24] MEDS: METOPROLOL TARTRATE 25 MG TAB PO SCH ×2 (09:19→20:39)
[2017-05-24] MEDS: FUROSEMIDE 40 MG TAB PO SCH (09:19)
[2017-05-24] MEDS: levETIRAcetam 500 MG TAB PO SCH ×2 (09:19→20:39)
[2017-05-24] MEDS: DOCUSATE SODIUM 50 MG/SENNA 8.6 MG TAB PO SCH ×2 (09:19→20:39)
[2017-05-24] MEDS: APIXABAN 2.5 MG TABLET PO SCH ×2 (09:19→20:39)
[2017-05-24] MEDS: LISINOPRIL 20 MG TAB PO SCH (09:20)
[2017-05-24] MEDS: SODIUM CHLORIDE 0.9% FLUSH 10 ML FLUSH IV FLUSH SCH ×2 (09:21→20:40)
[2017-05-24] MEDS: TIOTROPIUM BROMIDE 18 MCG INH INH SCH (09:28)
[2017-05-24] MEDS: ALBUTEROL SULFATE 90 MCG/ACT HFA 8 GM INHALER INH SCH ×3 (09:28→18:01)
[2017-05-24] MEDS: BUDESONIDE-FORMOTEROL 160/4.5 MCG INHALER INH SCH ×2 (09:28→20:41)
--- NOTE | 2017-05-24 09:32 | PD.CARD.PN ---
Subjective Subjective Remarks No angina Objective Medications Current Medications Medications (Trade) Dose Ordered Sig/Shauna Route Start Time Stop Time Status Last Admin (NS Flush) 2 ml UNSCH PRN IV FLUSH 05/21/17 16:15 (NS Flush) 2 ml BID IV FLUSH 05/21/17 21:00 05/24/17 09:21 (Tylenol) 650 mg Q4H PRN PO 05/21/17 16:15 (Zofran Inj) 4 mg Q6H PRN IVP 05/21/17 16:15 (Narcan Inj) 0.4 mg UNSCH PRN IV PUSH 05/21/17 16:15 (Aysha-Colace) 1 tab BID PO 05/21/17 21:00 05/24/17 09:19 (Milk Of Magnesia Liq) 30 ml Q12H PRN PO 05/21/17 16:15 (Senokot) 17.2 mg Q12H PRN PO 05/21/17 16:15 (Dulcolax Supp) 10 mg DAILY PRN RECTAL 05/21/17 16:15 (Lactulose Liq) 30 ml DAILY PRN PO 05/21/17 16:15 (D50w (Vial) Inj) 50 ml UNSCH PRN IV PUSH 05/21/17 16:15 (Glucagon Inj) 1 mg UNSCH PRN OTHER 05/21/17 16:15 (NovoLOG SUPPLEMENTAL SCALE) 1 ACHS SLIDING SCALE SQ 05/21/17 17:00 05/23/17 22:29 (Duoneb Neb) 1 ampule Q4HR NEB PRN NEB 05/21/17 16:15 05/22/17 21:34 (Ativan Inj) 1 mg Q15M PRN IV PUSH 05/21/17 16:15 (Keppra) 500 mg Q12HR PO 05/21/17 21:00 05/24/17 09:19 (Symbicort 160-4.5 Mcg Inh) 1 puff Q12HR INH 05/22/17 21:00 05/23/17 22:30 (Cymbalta Dr) 20 mg DAILY PO 05/23/17 09:00 05/24/17 09:19 (Lasix) 40 mg DAILY PO 05/23/17 09:00 05/24/17 09:19 (Prinivil) 20 mg DAILY PO 05/22/17 13:00 05/24/17 09:20 (Lopressor) 50 mg BID PO 05/22/17 13:00 Future Hold 05/22/17 22:59 (Desyrel) 25 mg HS PO 05/22/17 21:00 05/23/17 22:28 (Spiriva Inh) 18 mcg DAILY INH 05/23/17 09:00 05/23/17 08:40 (Proair Hfa Inh) 1 puff TID INH 05/22/17 18:00 05/23/17 16:46 (Motrin) 600 mg Q8H PRN PO 05/22/17 19:00 (Lopressor) 25 mg Q12HR PO 05/23/17 21:00 05/24/17 09:19 (Eliquis) 2.5 mg BID PO 05/23/17 12:00 05/24/17 09:19 Vital Signs / I&O Vital Signs Date Time Temp Pulse Resp B/P (MAP) Pulse Ox O2 Delivery O2 Flow Rate FiO2 05/24/17 07:55 98.6 60 27 189/85 (119) 99 05/24/17 05:15 98.0 76 21 133/80 (97) 100 05/24/17 01:55 97 60 05/24/17 00:20 97.9 80 22 130/88 (102) 100 05/23/17 23:58 98 60 05/23/17 21:09 98 BiPAP 60 05/23/17 21:04 98 60 05/23/17 20:45 97.9 78 19 135/80 (98) 98 05/23/17 17:07 4.00 05/23/17 17:06 94 Nasal Cannula 4.00 05/23/17 16:00 89 18 136/90 (105) 94 05/23/17 12:00 98.0 86 18 165/69 (101) 94 I/O 05/23/17 05/23/17 05/23/17 05/24/17 05/24/17 05/24/17 07:00 15:00 23:00 07:00 15:00 23:00 Intake Total 500 ml 850 ml 650 ml Balance 500 ml 850 ml 650 ml Intake Oral 500 ml 850 ml 650 ml # Voids 2 4 2 3 # Bowel Movements 0 2 0 0 Physical Exam Alert Chest decreased BS CV S1S2 irr irr Ext edema Laboratory Laboratory Tests Test 05/23/17 12:04 05/23/17 18:34 Troponin I 0.02 NG/ML Random Glucose 148 MG/DL Assessment and Plan Problem List: (1) Permanent atrial fibrillation ICD Codes: I48.2 - Chronic atrial fibrillation Plan: cont. Eliquis. HR controlled. Pauses during sleep < 3 sec do not reguire tx. (2) Paroxysmal ventricular tachycardia ICD Codes: I47.2 - Ventricular tachycardia Plan: LVEF 45-50%. Asymptomatic. Declines stress test or cath (3) COPD with acute exacerbation ICD Codes: J44.1 - Chronic obstructive pulmonary disease with (acute) exacerbation Plan: Told me he refuses to quit smoking (4) CVA (cerebral vascular accident) ICD Codes: I63.9 - Cerebral infarction, unspecified Assessment and Plan I am signing off. Please call prn. Ilya Magallanes MD May 24, 2017 09:32
--- NOTE | 2017-05-24 10:00 | HHI.PR ---
Subjective Remarks Patient seen and examined this morning. at bedside. BP stable. Evaluated by cardiology this am. Sitting up in bed, sleeping, nasal canula not in place. States hes tired today. Says he feels okay. Objective Vital Signs Date Time Temp Pulse Resp B/P (MAP) Pulse Ox O2 Delivery O2 Flow Rate FiO2 05/24/17 07:55 98.6 60 27 189/85 (119) 99 05/24/17 05:15 98.0 76 21 133/80 (97) 100 05/24/17 01:55 97 60 05/24/17 00:20 97.9 80 22 130/88 (102) 100 05/23/17 23:58 98 60 05/23/17 21:09 98 BiPAP 60 05/23/17 21:04 98 60 05/23/17 20:45 97.9 78 19 135/80 (98) 98 05/23/17 17:07 4.00 05/23/17 17:06 94 Nasal Cannula 4.00 05/23/17 16:00 89 18 136/90 (105) 94 05/23/17 12:00 98.0 86 18 165/69 (101) 94 I/O 05/23/17 05/23/17 05/23/17 05/24/17 05/24/17 05/24/17 07:00 15:00 23:00 07:00 15:00 23:00 Intake Total 500 ml 850 ml 650 ml Balance 500 ml 850 ml 650 ml Intake Oral 500 ml 850 ml 650 ml # Voids 2 4 2 3 # Bowel Movements 0 2 0 0 Result Diagram: 05/23/17 0237 05/23/17 1834 Imaging Last Impressions Neck CTA 05/21/172 Signed Impressions: Service Date/Time: Sunday, May 21, 2017 13:56 - CONCLUSION: 1. Occluded right internal carotid artery. 2. Likely [id number], less than 50%%, stenosis of the left carotid origin. 3. Less than 40%% stenosis of the left internal carotid origin secondary to calcified plaque. 4. Above tandem left carotid stenoses may be hemodynamically significant given single carotid anterior circulation perfusion. 5. Occluded right vertebral artery. Brant Reid MD Head CTA 05/21/17 1342 Signed Impressions: Service Date/Time: Sunday, May 21, 2017 13:56 - CONCLUSION: 1. Occluded right internal carotid artery with reconstitution of the right anterior circulation through the anterior commuting artery. 2. Small caliber right vertebral artery which may reflect a more proximal flow-limiting lesion. 3. Distal left vertebral artery is patent with dominant left vertebral artery. Brant Reid MD Head CT 05/21/17 0000 Signed Impressions: Service Date/Time: Sunday, May 21, 2017 13:53 - CONCLUSION: Stable brain appearance with no acute intracranial findings. Armen Ontiveros MD Carotid Artery Ultrasound 05/21/17 0000 Signed Impressions: Service Date/Time: Sunday, May 21, 2017 20:20 - CONCLUSION: 1. Right ICA occlusion at its origin. 2. Prominent left carotid bulb calcified plaque but no evidence of hemodynamically significant carotid stenosis on the left. Karel Orozco MD Objective Remarks GENERAL: sitting up in bed, nad SKIN: Warm and dry. HEAD: Normocephalic. EYES: No scleral icterus. No injection or drainage. NECK: Supple, trachea midline. No JVD or lymphadenopathy. CARDIOVASCULAR: irregular rhythm RESPIRATORY: Breath sounds equal bilaterally. No accessory muscle use. GASTROINTESTINAL: Abdomen soft, non-tender, nondistended. MUSCULOSKELETAL: No cyanosis, or edema. No calf tenderness. Neuro: afocal. Answers questions appropriately. A/P Problem List: (1) CHF (congestive heart failure) ICD Code: I50.9 - Heart failure, unspecified (2) Hyperlipemia ICD Code: E78.5 - Hyperlipidemia, unspecified (3) Hypertension ICD Code: I10 - Essential (primary) hypertension (4) CVA (cerebral vascular accident) ICD Code: I63.9 - Cerebral infarction, unspecified (5) Type 2 diabetes mellitus ICD Code: E11.9 - Type 2 diabetes mellitus without complications (6) COPD with acute exacerbation ICD Code: J44.1 - Chronic obstructive pulmonary disease with (acute) exacerbation (7) Encephalopathy ICD Code: G93.40 - Encephalopathy, unspecified Status: Acute Assessment and Plan 76-year-old male with a past month was significant for carotid artery stenosis, hypertension, diabetes, and COPD presents to the ED for altered mental status and question of seizure-like activity. V-tach - case discussed with Dr. Magallanes, needs his coronary a investigated - due to inability to lay flat but unable to do at this time - cont on eliquis 2.5 Po BID - cont on metoprolol 25 mg BID Possible seizure/hallucinations/altered mental status Stroke alert - Seen and evaluated by neurology. Possible seizure-like activity and hallucinations with postictal confusion state. Nonfocal neuro exam that was improving. He was outside of the window of TPA, deemed not a candidate. - MRI brain showed no acute infarct - Started on Keppra 500 mg twice a day - Seizure precautions - Goal blood pressure 135-140 over 70/80 - EEG shows no epileptiform discharges. - Echo normal EF, with aortic stenosis Carotid artery stenosis - Neck CTA showed included right internal carotid artery - Vascular surgery consulted: no surgical intervention on right which is completely occluded right carotid artery, left is still patent Atrial fibrillation - Patient not on anticoagulation--> eliquis and metoprolol per cardiology - Echo noted Diabetes mellitus - SSI - Monitor blood glucose - Holding home metformin and glyburide COPD - DuoNeb's - Continue home combivent - consult Pulm - likely needs home O2, will order walk test - pulm consult--> note is blank Hypertension - Continue home antihypertensives, goal BP noted above CHF - continue ACEI, BBlock, lasix Depression - continue home medications FEN Heart healthy diet NS at [facility] Electrolytes: monitor and replete prn Heparin Discharge Planning cleared by cards - will go home on eliquis and keppra - pt eval- SNF - home oxygen Barb Moreau MD May 24, 2017 10:00
[2017-05-24] MEDS ORDERED: APIX2.5T PO (10:04)
[2017-05-24] MEDS ORDERED: METF500T PO (10:04)
[2017-05-24] MEDS ORDERED: METO25TA3 PO (10:04)
--- NOTE | 2017-05-24 10:07 | HHI.DCPOC ---
Discharge Care Plan Diagnosis: (1) Seizure (2) Type 2 diabetes mellitus (3) CHF (congestive heart failure) (4) Permanent atrial fibrillation Goals to Promote Your Health * To prevent worsening of your condition and complications * To maintain your health at the optimal level Directions to Meet Your Goals Take your medications as prescribed Follow your dietary instruction Follow activity as directed Keep your appointments as scheduled Take your immunizations and boosters as scheduled If your symptoms worsen call your PCP, if no PCP go to Urgent Care Center or Emergency Room Smoking is Dangerous to Your Health. Avoid second hand smoke Call the 24-hour hour crisis hotline for domestic abuse at Barb Moreau MD May 24, 2017 10:07
[2017-05-24] MEDS ORDERED: OXYGENDME NAS.CANULA (10:51)
--- NOTE | 2017-05-24 13:21 | HHI.DS ---
Discharge Summary Admission Date May 21, 2017 at 15:37 Discharge Date: May 24, 2017 Admitting Diagnosis stroke alert, encephalopathy, rule out seizure Brief History "76-year-old male with a past medical history of carotid artery stenosis, hypertension, diabetes mellitus, COPD and history of prostate presents to the emergency department for evaluation of altered mental status and accompanying seizure-like activity. The patient was admitted to [facility] yesterday where he was treated for an acute COPD exacerbation and possible CVA. He left AGAINST MEDICAL ADVICE. The patient's reports that for the past 5 days the patient has been having auditory and visual hallucinations intermittently. Brain MRI performed yesterday showed no acute infarct with chronic white matter changes and old basal ganglia lacunar infarcts. The patient reportedly left the hospital because he felt there were individuals there who were "trying to get him." He called his this morning and have her pick him up. She was in the process of attempting to convince her to return to the hospital for further workup when he had an episode of generalized seizure-like activity in his upper extremities. His reports that at that time his eyes were rolled back in his head. There was no accompanying bowel/bladder incontinence. She reports after the episode was over the patient was confused and unable to answer questions appropriately. She called EMS and the patient was brought to the emergency department where a stroke code was called." CBC/BMP: 05/23/17 0237 05/23/17 1834 Significant Findings Laboratory Tests Test 05/21/17 13:45 05/22/17 15:40 05/23/17 02:37 05/23/17 12:04 Red Blood Count 4.49 MIL/MM3 (4.50-5.90) 4.32 MIL/MM3 (4.50-5.90) 4.24 MIL/MM3 (4.50-5.90) Neutrophils (%) (Auto) 87.8 % (16.0-70.0) 76.9 % (16.0-70.0) 77.8 % (16.0-70.0) Lymphocytes (%) (Auto) 7.2 % (9.0-44.0) Lymphocytes # (Auto) 0.6 TH/MM3 (1.0-4.8) Bedside Potassium 3.5 MMOL/L (3.6-5.0) Bedside Chloride 99 MMOL/L (102-111) Bedside Glucose 209 MG/DL (68-110) Troponin I LESS THAN 0.02 NG/ML Monocytes (%) (Auto) 10.0 % (0.0-8.0) 10.4 % (0.0-8.0) Neutrophils # (Auto) 8.0 TH/MM3 (1.8-7.7) 8.1 TH/MM3 (1.8-7.7) Monocytes # (Auto) 1.0 TH/MM3 (0-0.9) 1.1 TH/MM3 (0-0.9) Blood Urea Nitrogen 19 MG/DL (7-18) 21 MG/DL (7-18) Random Glucose 175 MG/DL (74-106) 126 MG/DL (74-106) Potassium Level 3.4 MEQ/L (3.5-5.1) Estimat Glomerular Filtration Rate 54 ML/MIN (>89) 61 ML/MIN (>89) Hemoglobin 12.9 GM/DL (13.0-17.0) Calcium Level 8.3 MG/DL (8.5-10.1) Magnesium Level 2.8 MG/DL (1.5-2.5) Carbon Dioxide Level 33.6 MEQ/L (21.0-32.0) Anion Gap 3 MEQ/L (5-15) B-Type Natriuretic Peptide 214 PG/ML (0-100) Test 05/23/17 18:34 Random Glucose 148 MG/DL (74-106) Imaging Last Impressions Neck CTA 05/21/17 1342 Signed Impressions: Service Date/Time: Sunday, May 21, 2017 13:56 - CONCLUSION: 1. Occluded right internal carotid artery. 2. Likely [id number], less than 50%%, stenosis of the left carotid origin. 3. Less than 40%% stenosis of the left internal carotid origin secondary to calcified plaque. 4. Above tandem left carotid stenoses may be hemodynamically significant given single carotid anterior circulation perfusion. 5. Occluded right vertebral artery. Brant Reid MD Head CTA 05/21/17 1342 Signed Impressions: Service Date/Time: Sunday, May 21, 2017 13:56 - CONCLUSION: 1. Occluded right internal carotid artery with reconstitution of the right anterior circulation through the anterior commuting artery. 2. Small caliber right vertebral artery which may reflect a more proximal flow-limiting lesion. 3. Distal left vertebral artery is patent with dominant left vertebral artery. Brant Reid MD Head CT 05/21/17 0000 Signed Impressions: Service Date/Time: Sunday, May 21, 2017 13:53 - CONCLUSION: Stable brain appearance with no acute intracranial findings. Armen Ontiveros MD Carotid Artery Ultrasound 05/21/17 0000 Signed Impressions: Service Date/Time: Sunday, May 21, 2017 20:20 - CONCLUSION: 1. Right ICA occlusion at its origin. 2. Prominent left carotid bulb calcified plaque but no evidence of hemodynamically significant carotid stenosis on the left. Karel Oroczo MD PE at Discharge GENERAL: sitting up in bed, nad SKIN: Warm and dry. HEAD: Normocephalic. EYES: No scleral icterus. No injection or drainage. NECK: Supple, trachea midline. No JVD or lymphadenopathy. CARDIOVASCULAR: irregular rhythm RESPIRATORY: Breath sounds equal bilaterally. No accessory muscle use. GASTROINTESTINAL: Abdomen soft, non-tender, nondistended. MUSCULOSKELETAL: No cyanosis, or edema. No calf tenderness. Neuro: afocal. Answers questions appropriately. Hospital Course In summary this is a 76-year-old male who presents to the ER with concern for stroke. He is evaluated by neurology concern is her seizure-like activity. He was started on Keppra. EEG was negative echo had normal EF with aortic stenosis. MRI negative for acute infarct. Patient with history of A. fib was not on anticoagulation. During consultation he had some V. tach, he was evaluated by Dr. Magallanes. He needed further investigation of his coronary artery disease but due to his inability to lay flat this cannot be done. The patient was started out was 2.5 mg by mouth twice a day and his metoprolol dose was decreased 25 mg twice a day. Carotid artery stenosis was noted on ultrasound, he was evaluated by vascular surgery and due to being completely excluded on the right no surgery could be done. The left carotid artery was still patent. Patient has some hypoglycemia during hospitalization. His metformin and glyburide have been held upon discharge I stop the glyburide and just continued the metformin at half the dose twice a day. Extensive discussion was had with the family with the hospitalist and embedded firmware engineer given patient's significant medical problems including heart disease and pulmonary disease. He had reached maximum benefit from inpatient hospitalist by the and he was discharged to [facility]. Discharge Instructions Follow up Referrals: Cardiology Neurology - 1 Week PCP Follow-up New Medications: Oxygen (O2) (Oxygen (O2)) Device LITER GARRET.CANULA CONTINUOUS for Prevent Hypoxemia, #2 Oxygen Concentrator Portable Gaseous 2 L/min via Nasal Canula Continuous For 99 months Apixaban (Eliquis) 2.5 Mg Tab 2.5 MG PO BID for Blood Clot Prevention, #60 TAB Metoprolol Tartrate (Metoprolol Tartrate) 25 Mg Tab 25 MG PO Q12HR for heart rate, #60 TAB Changed Medications: Metformin (Metformin) 500 Mg Tab 500 MG PO DAILY for Blood Sugar Management, #30 TAB 0 Refills (Changed from: Metformin 1,000 Mg Tab 1,000 Mg PO BIDPC Blood Sugar Management #60 TAB Ref 0) With a meal Continued Medications: Budesonide-Formoterol Inh (Symbicort Inh) 160-4.5 Mcg/Act Aero 1 PUFF INH Q12HR, #1 INHALER [address] (Duloxetine DR) 20 Mg Capdr 20 MG PO DAILY, #30 CAP 0 Refills Furosemide (Lasix) 40 Mg Tab 40 MG PO DAILY, #30 TAB 0 Refills Ipratropium-Albuterol Inh (Combivent Respimat Inh) 20-100 [facility]/Act Aero 1 PUFF INH TID for Asthma Management, #1 INHALER 0 Refills Lisinopril (Lisinopril) 20 Mg Tab 20 MG PO DAILY, #30 TAB 0 Refills Nitroglycerin SL (Nitroglycerin SL) 0.4 Mg Subl 0.4 MG SL DIRECTED PRN for CHEST PAIN, #100 TAB.SL 0 Refills ONE TABLET UNDER THE TONGUE NEEDED FOR CHEST PAIN, MAY REPEAT EVERY FIVE MINUTES FOR A TOTAL OF 3 DOSES OR CALL 911 IF NO RELIEF Trazodone (Trazodone) 50 Mg Tab 25 MG PO HS for Control Depression, #30 TAB 0 Refills Discontinued Medications: Glipizide (Glipizide) 5 Mg Tab 5 MG PO BIDAC for Blood Sugar Management, #60 TAB 0 Refills Take 30 minutes before a meal Metoprolol Tartrate (Metoprolol Tartrate) 50 Mg Tab 50 MG PO BID, #60 TAB 0 Refills Barb Moreau MD May 24, 2017 13:21
--- NOTE | 2017-05-24 17:22 | RADRPT ---
EXAM DATE/TIME: 05/24/2017 17:04 [place] COMPARISON: CHEST SINGLE AP, May 20, 2017, 16:02. INDICATIONS : Shortness of breath. MEDICAL HISTORY : Hypercholesterolemia. Hypertension. Chronic obstructive pulmonary disease. SURGICAL HISTORY : Eye surgery. Prostate surgery. Hip surgery. Neck surgery. ENCOUNTER: Initial ACUITY: 1 day PAIN SCORE: Non-responsive. LOCATION: Bilateral chest FINDINGS: There are bilateral effusions and cardiomegaly. There is diffuse interstitial prominence. The exam wo uld be most consistent with congestive failure. The visualized bony structures are grossly intact. CONCLUSION: 1. Probable CHF. Tam Dickens MD on May 24, 2017 at 17:18 Board Certified Radiologist. This report was verified electronically.
[2017-05-24] MEDS: traZODone HCL 50 MG TAB PO SCH (20:40)
--- NOTE | 2017-05-24 21:41 | MB ---
cc: EVELIN WATERS M.D. DATE OF CONSULTATION 05/24/2017 REASON FOR CONSULTATION COPD. HISTORY OF PRESENT ILLNESS Mr. Prescott is a 76-year-old male admitted with altered mental status, seizure activity treated for same. The patient has known history of severe COPD noted to be severely hypoxemic upon presentation. The patient has no history of oxygen use in the past. He is in no respiratory distress at present. Generally weak with difficulty ambulating. According to his his chest x-ray upon presentation was without acute change. The patient denies history of fever, chills, cough, expectoration or hemoptysis. PAST MEDICAL HISTORY His past medical history is notable for: 1. COPD. 2. Carotid artery disease. 3. Atrial fibrillation. 4. Hypertension. 5. Diabetes mellitus. 6. Prostate cancer. MEDICATIONS At home include: 1. Symbicort twice daily. 2. Lasix. 3. Cymbalta. 4. Spiriva. 5. Trazodone. 6. Ibuprofen. 7. Lisinopril. 8. Keppra. 9. Metoprolol. ALLERGIES None known to medication FAMILY HISTORY Noncontributory. SOCIAL HISTORY Long heavy smoking history. Does not smoke at present. REVIEW OF SYSTEMS 12-point review of systems as per HPI and past history otherwise negative. PHYSICAL EXAMINATION GENERAL: On exam the patient is alert. VITAL SIGNS: His temperature is 98 degrees Fahrenheit, pulse 60 and regular, respirations 24, blood pressure 160/80, oxygen saturation 100% on 4 liters oxygen nasal cannula. HEENT: Exam unremarkable. Eyes without icterus. NECK: Without adenopathy or thyroid enlargement. Central trachea. CHEST: Few scattered rhonchi bilaterally. CARDIOVASCULAR: Cardiac exam irregularity noted. ABDOMEN: Lax. Bowel sounds audible. EXTREMITIES: No clubbing, cyanosis or edema. LABORATORY DATA White count 10,000, hemoglobin 12, hematocrit 39, platelets 207,000. On May 23, 2017, sodium 143, potassium 4.0, BUN 21, creatinine 1.1. IMAGING Chest x-ray done in [facility] prior to transfer is without acute abnormality. IMPRESSION 1. Chronic obstructive pulmonary disease. 2. Respiratory failure, acute. 3. Atrial fibrillation. 4. Peripheral vascular disease. 5. Diabetes mellitus. 6. Hypertension. PLAN The patient is on oxygen therapy at present. We will attempt to discontinue the same. Continue bronchodilator therapy. Should his oxygenation improve adequate would discontinue oxygen therapy, if not will discharge on oxygen. The patient is discharged to rehab which would be appropriate. His pulmonary status despite the severity is at the stable level at present. I do thank you for asking me to partake in Mr. Prescott's care. Evelin Waters MD WWW/VALERIE /5:02 PM /9:16 PM
[2017-05-25] VITALS (13 sets, daily range): BP systolic 134–197; BP diastolic 63–95; PULSE 53–70; RESP 19–24; TEMP 97.6–98.7; O2SAT 94–100
[2017-05-25] MEDS: INSULIN ASPART SUPPLEMENTAL SCALE SQ SCH ×4 (07:47→20:16)
--- NOTE | 2017-05-25 08:40 | HHI.PR ---
Subjective Remarks ALERT CONFUSED NO DISTREE Objective Vital Signs Date Time Temp Pulse Resp B/P (MAP) Pulse Ox O2 Delivery O2 Flow Rate FiO2 05/25/17 08:18 98.2 67 22 173/75 (107) 94 05/25/17 04:30 150/72 (98) 05/25/17 04:13 98.0 65 20 191/86 (121) 98 05/25/17 00:28 55 05/25/17 00:00 98.7 59 19 169/79 (109) 98 05/24/17 22:34 99 40 05/24/17 20:32 95 60 05/24/17 20:30 97.3 73 18 168/78 (108) 99 05/24/17 17:08 97 Nasal Cannula 4.00 05/24/17 16:39 68 05/24/17 16:12 97.4 57 24 161/79 (106) 100 05/24/17 15:01 56 05/24/17 12:00 97 Nasal Cannula 4.00 05/24/17 11:40 97.8 66 24 161/69 (99) 97 05/24/17 11:23 63 I/O 05/24/17 05/24/17 05/24/17 05/25/17 05/25/17 05/25/17 07:00 15:00 23:00 07:00 15:00 23:00 Intake Total 650 ml 600 ml 360 ml Balance 650 ml 600 ml 360 ml Intake Oral 650 ml 600 ml 360 ml # Voids 3 4 4 # Bowel Movements 0 1 Result Diagram: 05/23/17 0237 05/23/17 1834 Objective Remarks GENERAL: SKIN: Warm and dry. HEAD: Atraumatic. Normocephalic. EYES: Pupils equal and round. No scleral icterus. No injection or drainage. ENT: No nasal bleeding or discharge. Mucous membranes pink and moist. NECK: Trachea midline. No JVD. CARDIOVASCULAR: Regular rate and rhythm. RESPIRATORY: No accessory muscle use. Clear to auscultation. Breath sounds equal bilaterally. GASTROINTESTINAL: Abdomen soft, non-tender, nondistended. Hepatic and splenic margins not palpable. MUSCULOSKELETAL: Extremities without clubbing, cyanosis, or edema. No obvious deformities. NEUROLOGICAL: Awake and alert. No obvious cranial nerve deficits. Motor grossly within normal limits. Five out of 5 muscle strength in the arms and legs. Normal speech. PSYCHIATRIC: Appropriate mood and affect; insight and judgment normal. Assessment and Plan Assessment and Plan RESPIRAORY FAILURE COPD PLAN O2 NEEDED BRONCHODILATOR THERAPY OK FOR REHAB Evelin Waters MD May 25, 2017 08:40
[2017-05-25] MEDS: DULoxetine HCl DR 20 MG CAP PO SCH (09:04)
[2017-05-25] MEDS: LISINOPRIL 20 MG TAB PO SCH (09:05)
[2017-05-25] MEDS: FUROSEMIDE 40 MG TAB PO SCH (09:05)
[2017-05-25] MEDS: levETIRAcetam 500 MG TAB PO SCH ×2 (09:05→20:09)
[2017-05-25] MEDS: DOCUSATE SODIUM 50 MG/SENNA 8.6 MG TAB PO SCH ×2 (09:05→20:09)
[2017-05-25] MEDS: METOPROLOL TARTRATE 25 MG TAB PO SCH ×2 (09:05→20:09)
[2017-05-25] MEDS: APIXABAN 2.5 MG TABLET PO SCH ×2 (09:05→20:09)
[2017-05-25] MEDS: SODIUM CHLORIDE 0.9% FLUSH 10 ML FLUSH IV FLUSH SCH ×2 (09:06→20:10)
[2017-05-25] MEDS: ALBUTEROL SULFATE 90 MCG/ACT HFA 8 GM INHALER INH SCH ×3 (09:06→17:09)
[2017-05-25] MEDS: BUDESONIDE-FORMOTEROL 160/4.5 MCG INHALER INH SCH ×2 (09:06→20:10)
[2017-05-25] MEDS: TIOTROPIUM BROMIDE 18 MCG INH INH SCH (09:07)
--- NOTE | 2017-05-25 12:35 | HHI.PR ---
Subjective Remarks No new issues. Awaiting for SNF placement. States he is doing okay. Objective Vitals Vital Signs Date Time Temp Pulse Resp B/P (MAP) Pulse Ox O2 Delivery O2 Flow Rate FiO2 05/25/17 11:37 98.1 64 22 152/95 (114) 99 05/25/17 08:56 96 05/25/17 08:56 94 Nasal Cannula 4.00 05/25/17 08:18 98.2 67 22 173/75 (107) 94 05/25/17 04:30 150/72 (98) 05/25/17 04:13 98.0 65 20 191/86 (121) 98 05/25/17 00:28 55 05/25/17 00:00 98.7 59 19 169/79 (109) 98 05/24/17 22:34 99 40 05/24/17 20:32 95 60 05/24/17 20:30 97.3 73 18 168/78 (108) 99 05/24/17 17:08 97 Nasal Cannula 4.00 05/24/17 16:39 68 05/24/17 16:12 97.4 57 24 161/79 (106) 100 05/24/17 15:01 56 I/O 05/24/17 05/24/17 05/24/17 05/25/17 05/25/17 05/25/17 07:00 15:00 23:00 07:00 15:00 23:00 Intake Total 650 ml 600 ml 360 ml Balance 650 ml 600 ml 360 ml Intake Oral 650 ml 600 ml 360 ml # Voids 3 4 4 # Bowel Movements 0 1 Result Diagram: 05/23/17 0237 05/23/17 1834 Objective Remarks GENERAL: This is a well-nourished, well-developed patient, in no apparent distress. CARDIOVASCULAR: Normal rate and regular rhythm without murmurs, gallops, or rubs. RESPIRATORY: Good respiratory efforts. Breath sounds equal and clear to auscultation bilaterally. GASTROINTESTINAL: Abdomen soft, non-tender, non-distended. Normal active bowel sounds MUSCULOSKELETAL: Extremities without cyanosis, or edema. NEURO: Alert & Oriented x4 to person, place, time, situation. Moves all ext x4 PSYCH: Appropriate mood and affect. A/P Assessment and Plan 76-year-old male with a history significant for carotid artery stenosis, hypertension, diabetes, and COPD presents to the ED for altered mental status and question of seizure-like activity. V-tach - Cardiology followed the patient - due to inability to lay flat but unable to do at this time for invasive procedures, advise continuing medical management - cont on eliquis 2.5 Po BID - cont on metoprolol 25 mg BID Possible seizure/hallucinations/altered mental status Stroke alert - Seen and evaluated by neurology. Possible seizure-like activity and hallucinations with postictal confusion state. Nonfocal neuro exam that was improving. He was outside of the window of TPA, deemed not a candidate. - MRI brain showed no acute infarct - Started on Keppra 500 mg twice a day - Seizure precautions - Goal blood pressure 135-140 over 70/80 - EEG shows no epileptiform discharges. - Echo normal EF, with aortic stenosis Carotid artery stenosis - Neck CTA showed included right internal carotid artery - Vascular surgery consulted: no surgical intervention on right which is completely occluded right carotid artery, left is still patent Atrial fibrillation - Patient not on anticoagulation--> Eliquis and metoprolol per cardiology - Echo noted Diabetes mellitus - SSI - Monitor blood glucose - Holding home metformin and glyburide COPD - DuoNeb's - Continue home Combivent - likely needs home O2, will order walk test - Pulmonology following. Hypertension - Continue home antihypertensives, goal BP noted above CHF - continue ACEI, BBlock, lasix Depression - continue home medications Discharge Planning DC to SNF once arrangements are made. Suhas Sebastian MD May 25, 2017 12:35
[2017-05-25] MEDS ORDERED: cloNIDine HCL 0.1 MG TAB PO PRN (17:00)
[2017-05-25] MEDS: traZODone HCL 50 MG TAB PO SCH (20:10)
[2017-05-26] VITALS (8 sets, daily range): BP systolic 142–162; BP diastolic 67–76; PULSE 51–69; RESP 18; TEMP 97.4–98.2; O2SAT 93–100
[2017-05-26] MEDS: INSULIN ASPART SUPPLEMENTAL SCALE SQ SCH ×3 (07:30→16:44)
[2017-05-26] MEDS: BUDESONIDE-FORMOTEROL 160/4.5 MCG INHALER INH SCH (08:39)
[2017-05-26] MEDS: ALBUTEROL SULFATE 90 MCG/ACT HFA 8 GM INHALER INH SCH ×2 (08:39→12:13)
[2017-05-26] MEDS: TIOTROPIUM BROMIDE 18 MCG INH INH SCH (08:39)
[2017-05-26] MEDS: SODIUM CHLORIDE 0.9% FLUSH 10 ML FLUSH IV FLUSH SCH (08:39)
[2017-05-26] MEDS: DOCUSATE SODIUM 50 MG/SENNA 8.6 MG TAB PO SCH (08:39)
[2017-05-26] MEDS: METOPROLOL TARTRATE 25 MG TAB PO SCH (08:40)
[2017-05-26] MEDS: DULoxetine HCl DR 20 MG CAP PO SCH (08:40)
[2017-05-26] MEDS: LISINOPRIL 20 MG TAB PO SCH (08:40)
[2017-05-26] MEDS: FUROSEMIDE 40 MG TAB PO SCH (08:40)
[2017-05-26] MEDS: levETIRAcetam 500 MG TAB PO SCH (08:41)
[2017-05-26] MEDS: APIXABAN 2.5 MG TABLET PO SCH (08:41)
--- NOTE | 2017-05-26 14:53 | HHI.PR ---
Subjective Remarks Patient reports is feeling okay. No new issues. Awaiting SNF placement. Objective Vitals Vital Signs Date Time Temp Pulse Resp B/P (MAP) Pulse Ox O2 Delivery O2 Flow Rate FiO2 05/26/17 12:00 97.6 69 18 142/70 (94) 100 05/26/17 11:14 93 Nasal Cannula 4.00 05/26/17 08:28 98.1 57 18 154/67 (96) 93 05/26/17 03:59 98.2 56 18 146/76 (99) 95 05/26/17 03:37 99 Nasal Cannula 4.00 05/26/17 02:11 58 05/25/17 23:35 97.7 69 19 142/82 (102) 99 05/25/17 21:56 57 05/25/17 20:07 97.6 60 20 134/63 (86) 100 05/25/17 16:46 58 05/25/17 15:58 97.6 70 24 197/84 (121) 99 I/O 05/25/17 05/25/17 05/25/17 05/26/17 05/26/17 05/26/17 07:00 15:00 23:00 07:00 15:00 23:00 Intake Total 360 ml 720 ml Balance 360 ml 720 ml Intake Oral 360 ml 720 ml # Voids 4 5 2 # Bowel Movements 0 Result Diagram: 05/23/17 0237 05/23/17 1834 Objective Remarks GENERAL: This is a well-nourished, well-developed patient, in no apparent distress. CARDIOVASCULAR: Normal rate and regular rhythm without murmurs, gallops, or rubs. RESPIRATORY: Good respiratory efforts. Breath sounds equal and clear to auscultation bilaterally. GASTROINTESTINAL: Abdomen soft, non-tender, non-distended. Normal active bowel sounds MUSCULOSKELETAL: Extremities without cyanosis, or edema. NEURO: Alert & Oriented x4 to person, place, time, situation. Moves all ext x4 PSYCH: Appropriate mood and affect. A/P Assessment and Plan 76-year-old male with a history significant for carotid artery stenosis, hypertension, diabetes, and COPD presents to the ED for altered mental status and question of seizure-like activity. V-tach - Cardiology followed the patient - due to inability to lay flat unable to do invasive procedures, advise continuing medical management - cont on eliquis 2.5 Po BID - cont on metoprolol 25 mg BID Possible seizure/hallucinations/altered mental status Stroke alert - Seen and evaluated by neurology. Possible seizure-like activity and hallucinations with postictal confusion state. Nonfocal neuro exam that was improving. He was outside of the window of TPA, deemed not a candidate. - MRI brain showed no acute infarct - Started on Keppra 500 mg twice a day - Seizure precautions - Goal blood pressure 135-140 over 70/80 - EEG shows no epileptiform discharges. - Echo normal EF, with aortic stenosis Carotid artery stenosis - Neck CTA showed included right internal carotid artery - Vascular surgery consulted: no surgical intervention on right which is completely occluded right carotid artery, left is still patent Atrial fibrillation - Patient was not on anticoagulation--> started on Eliquis and metoprolol per cardiology - Echo noted Diabetes mellitus - SSI - Monitor blood glucose - Holding home metformin and glyburide COPD - DuoNeb's - Continue home Combivent - likely needs home O2, will order walk test - Pulmonology following. Hypertension - Continue home antihypertensives, goal BP noted above CHF - continue ACEI, BBlock, lasix Depression - continue home medications Discharge Planning DC to SNF today once arrangements are made. Suhas Sebastian MD May 26, 2017 14:53
== END 2017-05-26 17:59 | DRG 70 ==
LOC: NEPE 13:35 → NEDA 15:37 → N05A 17:09
PROVIDERS: ADMIT Family Medicine; ATTEND Family Medicine
DX: G93.40 Encephalopathy, unspecified (principal); J96.01 Acute respiratory failure with hypoxia; I47.2 Ventricular tachycardia; I48.2 Chronic atrial fibrillation; I11.0 Hypertensive heart disease with heart failure; I50.9 Heart failure, unspecified; E11.51 Type 2 diabetes mellitus with diabetic peripheral angiopathy without gangrene; E11.649 Type 2 diabetes mellitus with hypoglycemia without coma; R47.01 Aphasia; J44.1 Chronic obstructive pulmonary disease with (acute) exacerbation; R44.3 Hallucinations, unspecified; R56.9 Unspecified convulsions; I65.23 Occlusion and stenosis of bilateral carotid arteries; I65.01 Occlusion and stenosis of right vertebral artery; I25.10 Atherosclerotic heart disease of native coronary artery without angina pectoris; R29.722 NIHSS score 22; E66.9 Obesity, unspecified; E78.5 Hyperlipidemia, unspecified; I35.0 Nonrheumatic aortic (valve) stenosis; E78.00 Pure hypercholesterolemia, unspecified; G47.30 Sleep apnea, unspecified; H91.90 Unspecified hearing loss, unspecified ear; I45.5 Other specified heart block; F17.210 Nicotine dependence, cigarettes, uncomplicated; F32.9 Major depressive disorder, single episode, unspecified; Z68.31 Body mass index [BMI] 31.0-31.9, adult; Z79.84 Long term (current) use of oral hypoglycemic drugs; Z85.46 Personal history of malignant neoplasm of prostate; Z86.73 Personal history of transient ischemic attack (TIA), and cerebral infarction without residual deficits; Z91.19 Patient's noncompliance with other medical treatment and regimen
CPT/HCPCS: 36600; 70450; 70496; 70498; 71045; 80048; 82435; 82550; 82565; 82805; 82947; 82948; 83735; 83880; 84132; 84295; 84484; 84520; 85025; 85384; 85610; 85730; 86850; 86900; 86901; 93005; 93306; 93880; 94003; 94618; 94640; 94664; 95819; 96360; J1644; J1815; J7030; Q9967

== ENCOUNTER 2017-09-14 20:47 | Inpatient (IN) | payer OTHER, MEDICARE ==
[~2017-09-14] VITALS: Ht 175.3 cm; Wt 105.0 kg
[~2017-09-14 20:47] MED LIST changes: +APIX2.5T PO; -GLIP5TAB8 PO; -METF1000 PO; +METF500T PO; +METO25TA3 PO; -METO50TA PO; +NITR1SUB3 SL; +OXYGENDME NAS.CANULA
[2017-09-14 21:39] VITALS: BP 197/82; PULSE 86; RESP 20; TEMP 98.6; O2SAT 88
[2017-09-14 21:51] VITALS: BP 231/95; PULSE 70; O2SAT 87
[2017-09-14 22:00] VITALS: O2SAT 98
[2017-09-14] MEDS ORDERED: SODIUM CHLORIDE 0.9% FLUSH 10 ML FLUSH IVF PRN (22:00)
--- NOTE | 2017-09-14 22:01 | PD ---
HPI Chief Complaint: General Weakness Time Seen by Provider: 21:45 Travel History International Travel<30 days: No Contact w/Intl Traveler<30days: No Traveled to known affect area: No History of Present Illness HPI 76-year-old male presents to the emergency department for evaluation of generalized weakness, fall 2, shortness of breath. Patient is a poor historian. states that this has been ongoing for approximately a week. Patient has a past medical history of carotid artery stenosis, hypertension, diabetes mellitus, COPD, CHF, atrial fibrillation, and history of prostate cancer. His states that he has had swelling of the lips, bilateral hands intermittently. He has chronic bilateral lower extremity swelling. Patient denies any headache or chest pain. He does admit to shortness of breath and generalized weakness. He denies abdominal pain. No vomiting or diarrhea. Patient is on Eliquis. No exacerbating or alleviating factors. Moderate severity. PFSH Past Medical History Autoimmune Disease: No Heart Rhythm Problems: Yes (as a child) Cancer: Yes (PROSTATE CANCER) Cardiovascular Problems: Yes (a-fib) High Cholesterol: Yes COPD: Yes Diabetes: Yes Patient Takes Glucophage: No Diminished Hearing: Yes (HARD OF HEARING) Genitourinary: No Hypertension: Yes Musculoskeletal: Yes (hips) Psychiatric: No Reproductive: No Respiratory: Yes (copd) Immunizations Current: Yes Sleep Apnea: Yes Past Surgical History Eye Surgery: Yes Genitourinary Surgery: Yes (PROSTATE) Social History Alcohol Use: No Tobacco Use: Yes ( 3 CIGS NOW AT LEAST 2 PPD) Substance Use: No Allergies-Medications (Allergen,Severity, Reaction): Coded Allergies: No Known Allergies (Verified Adverse Reaction, Unknown, 05/21/17) Reported Meds & Prescriptions Reported Meds & Active Scripts Active Oxygen (O2) Device Liter GARRET.CANULA CONTINUOUS Oxygen Concentrator Portable Gaseous 2 L/min via Nasal Canula Continuous For 99 months Metoprolol Tartrate 25 Mg Tab 25 Mg PO Q12HR Eliquis (Apixaban) 2.5 Mg Tab 2.5 Mg PO BID Metformin (Metformin HCl) 500 Mg Tab 500 Mg PO DAILY With a meal Lasix (Furosemide) 40 Mg Tab 40 Mg PO DAILY Reported Nitroglycerin SL (Nitroglycerin) 0.4 Mg Subl 0.4 Mg SL DIRECTED PRN ONE TABLET UNDER THE TONGUE NEEDED FOR CHEST PAIN, MAY REPEAT EVERY FIVE MINUTES FOR A TOTAL OF 3 DOSES OR CALL 911 IF NO RELIEF Combivent Respimat Inh (Ipratropium-Albuterol Inh) 20-100 Halfway/Act Aero 1 Puff INH TID Lisinopril 20 Mg Tab 20 Mg PO DAILY Symbicort Inh (Budesonide/Formoterol Fumarate) 160-4.5 Mcg/Act Aero 1 Puff INH Q12HR Duloxetine DR (Duloxetine HCl) 20 Mg Capdr 20 Mg PO DAILY Trazodone (Trazodone HCl) 50 Mg Tab 25 Mg PO HS Review of Systems Except as stated in HPI: all other systems reviewed are Neg Physical Exam Narrative GENERAL: Well-nourished, well-developed male patient, afebrile. Patient is alert and oriented to person, place, time. SKIN: Focused skin assessment warm/dry. HEAD: Normocephalic. Atraumatic. EYES: No scleral icterus. No injection or drainage. NECK: Supple, trachea midline. No JVD or lymphadenopathy. CARDIOVASCULAR: Regular rate and rhythm without murmurs, gallops, or rubs. RESPIRATORY: Breath sounds equal bilaterally. Patient is tachypneic. Oxygen saturation are in the low 80s upon arrival to room. Lung sounds are diminished throughout. Fine crackles heard in the right lower base. Rhonchi/wheezing in right upper lobe. GASTROINTESTINAL: Abdomen soft, non-tender, nondistended. MUSCULOSKELETAL: No cyanosis, or edema. Bilateral upper extremity strength 5/ 5. Bilateral lower extremity strength 4/5. BACK: Nontender without obvious deformity. No CVA tenderness. Data Data Last Documented VS Vital Signs Date Time Temp Pulse Resp B/P (MAP) Pulse Ox O2 Delivery O2 Flow Rate FiO2 09/14/17 22:00 98 Nasal Cannula 4.00 09/14/17 21:51 70 231/95 (140) 09/14/17 21:39 98.6 20 Orders Orders Complete Blood Count With Diff (09/14/17 21:53) B-Type Natriuretic Peptide (09/14/17 21:53) Act Partial Throm Time (Ptt) (09/14/17 21:53) Prothrombin Time / Inr (Pt) (09/14/17 21:53) Magnesium (Mg) (09/14/17 21:53) Ckmb (Isoenzyme) Profile (09/14/17 21:53) Troponin I (09/14/17 21:53) Blood Culture (09/14/17 21:53) Iv Access Insert/Monitor (09/14/17 21:53) Electrocardiogram (09/14/17 21:53) Ecg Monitoring (09/14/17 21:53) Oximetry (09/14/17 21:53) Oxygen Administration (09/14/17 21:53) Chest, Single Ap (09/14/17 21:53) Sodium Chloride 0.9% Flush (Ns Flush) (09/14/17 22:00) Albuterol-Ipratropium Neb (Duoneb Neb) (09/14/17 22:00) Lactic Acid Sepsis Protocol (09/14/17 21:53) Comprehensive Metabolic Panel (09/14/17 21:53) Ct Brain W/O Iv Contrast(Rout) (09/14/17 ) Furosemide Inj (Lasix Inj) (09/14/17 22:15) Urinary Catheter Insert/Apply (09/14/17 22:10) Labs Laboratory Tests Test 09/14/17 21:56 White Blood Count 10.0 TH/MM3 Red Blood Count 4.63 MIL/MM3 Hemoglobin 13.7 GM/DL Hematocrit 42.7 % Mean Corpuscular Volume 92.3 FL Mean Corpuscular Hemoglobin 29.6 PG Mean Corpuscular Hemoglobin Concent 32.0 % Red Cell Distribution Width 17.0 % Platelet Count 223 TH/MM3 Mean Platelet Volume 8.8 FL Neutrophils (%) (Auto) 79.1 % Lymphocytes (%) (Auto) 11.0 % Monocytes (%) (Auto) 9.3 % Eosinophils (%) (Auto) 0.3 % Basophils (%) (Auto) 0.3 % Neutrophils # (Auto) 7.9 TH/MM3 Lymphocytes # (Auto) 1.1 TH/MM3 Monocytes # (Auto) 0.9 TH/MM3 Eosinophils # (Auto) 0.0 TH/MM3 Basophils # (Auto) 0.0 TH/MM3 CBC Comment DIFF FINAL Differential Comment MDM Medical Decision Making Medical Screen Exam Complete: Yes Emergency Medical Condition: Yes Medical Record Reviewed: Yes Differential Diagnosis COPD exacerbation versus CHF exacerbation versus pneumonia versus sepsis versus electrolyte abnormality versus dehydration versus intracranial abnormality Narrative Course 76-year-old male presents to the emergency department for evaluation of shortness of breath, generalized weakness with fall 2 over the past week. EKG shows atrial fibrillation, heart rate 76, no acute ST changes. CBC, CMP, lactic acid, BNP, magnesium, CK, troponin, PTT, PT/INR, blood cultures 2, chest x-ray ordered and pending. CT the brain is ordered due to multiple falls. Patient is given DuoNeb 2 and furosemide 40 mg IV. CBC shows no acute abnormality. CMP, Lactic acid, BNP, Magnesium, CK, Troponin , Coags, Chest x-ray, and CT of the brain are pending. My attending physician, Dr. Magallanes, will resume care and disposition of patient. Celeste Dunn September 14, 2017 22:00
[2017-09-14] MEDS: RESP: ALBUTEROL 2.5 MG/IPRATROPIUM 0.5 MG NEB (SCH) INH (22:12)
[2017-09-14] MEDS ORDERED: FUROSEMIDE 40 MG/4 ML VIAL IV PUSH ONE (22:15)
[2017-09-14 22:31] LABS: AUTOMATED NEUTROPHIL # 7.9 TH/MM3 (1.8-7.7); BASOPHIL % 0.3 % (0.0-2.0); EOSINOPHIL % 0.3 % (0.0-4.0); HEMATOCRIT 42.7 % (39.0-51.0); HEMOGLOBIN 13.7 GM/DL (13.0-17.0); LYMPHOCYTE # 1.1 TH/MM3 (1.0-4.8); MEAN CELL VOLUME 92.3 FL (80.0-100.0); MEAN CORPUSCULAR HEMOGLOBIN 29.6 PG (27.0-34.0); MEAN PLATELET VOLUME 8.8 FL (7.0-11.0); MONO % 9.3 % (0.0-8.0); MONOCYTE # 0.9 TH/MM3 (0-0.9); NEUT % 79.1 % (16.0-70.0); PLATELET COUNT 223 TH/MM3 (150-450); RED BLOOD COUNT 4.63 MIL/MM3 (4.50-5.90)
[2017-09-14 22:44] LABS: INTERNATIONAL NORMALIZED RATIO 1.2 RATIO
[2017-09-14 22:46] LABS: ALBUMIN 3.3 GM/DL (3.4-5.0); ALT (GPT) 19 U/L (12-78); AST (GOT) 14 U/L (15-37); BICARBONATE 33.9 MEQ/L (21.0-32.0); BLOOD UREA NITROGEN 19 MG/DL (7-18); CALCIUM 8.8 MG/DL (8.5-10.1); CHLORIDE 103 MEQ/L (98-107); CREATININE 1.21 MG/DL (0.60-1.30); GLOMERULAR FILTRATION RATE 58 ML/MIN (>89); GLUCOSE,RANDOM 157 MG/DL (74-106); MAGNESIUM 2.2 MG/DL (1.5-2.5); SODIUM (NA) 143 MEQ/L (136-145)
[2017-09-14 22:49] LABS: ALKALINE PHOSPHATASE 118 U/L (45-117); TOTAL PROTEIN 7.3 GM/DL (6.4-8.2); TROPONIN I 0.02 NG/ML (0.02-0.05)
--- NOTE | 2017-09-14 22:51 | PD ---
Data Data Last Documented VS Vital Signs Date Time Temp Pulse Resp B/P (MAP) Pulse Ox O2 Delivery O2 Flow Rate FiO2 09/15/17 00:30 95 60 09/15/17 00:14 64 169/103 (125) 09/14/17 23:01 Nasal Cannula 5.00 09/14/17 21:39 98.6 20 Orders Orders Complete Blood Count With Diff (09/14/17 21:53) B-Type Natriuretic Peptide (09/14/17 21:53) Act Partial Throm Time (Ptt) (09/14/17 21:53) Prothrombin Time / Inr (Pt) (09/14/17 21:53) Magnesium (Mg) (09/14/17 21:53) Ckmb (Isoenzyme) Profile (09/14/17 21:53) Troponin I (09/14/17 21:53) Blood Culture (09/14/17 21:53) Iv Access Insert/Monitor (09/14/17 21:53) Electrocardiogram (09/14/17 21:53) Ecg Monitoring (09/14/17 21:53) Oximetry (09/14/17 21:53) Oxygen Administration (09/14/17 21:53) Chest, Single Ap (09/14/17 21:53) Sodium Chloride 0.9% Flush (Ns Flush) (09/14/17 22:00) Albuterol-Ipratropium Neb (Duoneb Neb) (09/14/17 22:00) Lactic Acid Sepsis Protocol (09/14/17 21:53) Comprehensive Metabolic Panel (09/14/17 21:53) Ct Brain W/O Iv Contrast(Rout) (09/14/17 ) Furosemide Inj (Lasix Inj) (09/14/17 22:15) Urinary Catheter Insert/Apply (09/14/17 22:10) Potassium Chloride (Kcl) (09/14/17 23:30) Arterial Blood Gas (Abg) (09/15/17 00:21) Methylprednisolone So Succ Inj (Solumedr (09/15/17 00:30) Albuterol-Ipratropium Neb (Duoneb Neb) (09/15/17 00:30) Resp Bipap / Cpap Non Invas Vt (09/15/17 ) Admit Order (Ed Use Only) (09/15/17 01:09) Labs Laboratory Tests Test 09/14/17 21:56 09/15/17 00:15 White Blood Count 10.0 TH/MM3 Red Blood Count 4.63 MIL/MM3 Hemoglobin 13.7 GM/DL Hematocrit 42.7 % Mean Corpuscular Volume 92.3 FL Mean Corpuscular Hemoglobin 29.6 PG Mean Corpuscular Hemoglobin Concent 32.0 % Red Cell Distribution Width 17.0 % Platelet Count 223 TH/MM3 Mean Platelet Volume 8.8 FL Neutrophils (%) (Auto) 79.1 % Lymphocytes (%) (Auto) 11.0 % Monocytes (%) (Auto) 9.3 % Eosinophils (%) (Auto) 0.3 % Basophils (%) (Auto) 0.3 % Neutrophils # (Auto) 7.9 TH/MM3 Lymphocytes # (Auto) 1.1 TH/MM3 Monocytes # (Auto) 0.9 TH/MM3 Eosinophils # (Auto) 0.0 TH/MM3 Basophils # (Auto) 0.0 TH/MM3 CBC Comment DIFF FINAL Differential Comment Prothrombin Time 12.0 SEC Prothromb Time International Ratio 1.2 RATIO Activated Partial Thromboplast Time 28.7 SEC Blood Urea Nitrogen 19 MG/DL Creatinine 1.21 MG/DL Random Glucose 157 MG/DL Total Protein 7.3 GM/DL Albumin 3.3 GM/DL Calcium Level 8.8 MG/DL Magnesium Level 2.2 MG/DL Alkaline Phosphatase 118 U/L Aspartate Amino Transf (AST/SGOT) 14 U/L Alanine Aminotransferase (ALT/SGPT) 19 U/L Total Bilirubin 1.0 MG/DL Sodium Level 143 MEQ/L Potassium Level 3.0 MEQ/L Chloride Level 103 MEQ/L Carbon Dioxide Level 33.9 MEQ/L Anion Gap 6 MEQ/L Estimat Glomerular Filtration Rate 58 ML/MIN Lactic Acid Level 1.9 mmol/L Total Creatine Kinase 53 U/L Troponin I 0.02 NG/ML B-Type Natriuretic Peptide 470 PG/ML Blood Gas Puncture Site RT RADIAL Blood Gas Patient Temperature 98.6 Blood Gas HCO3 37 mmol/L Blood Gas Base Excess 11.0 mmol/L Blood Gas Oxygen Saturation 83 % Arterial Blood pH 7.36 Arterial Blood Partial Pressure CO2 66 mmHg Arterial Blood Partial Pressure O2 57 mmHG Arterial Blood Oxygen Content 15.8 Vol % Arterial Blood Carboxyhemoglobin 2.0 % Arterial Blood Methemoglobin 0.5 % Blood Gas Hemoglobin 13.5 G/DL Oxygen Delivery Device NASAL CANNULA Blood Gas Liter Flow 3 L/M [facility] Medical Record Reviewed: Yes Supervised Visit with ROSIO: Yes Narrative Course During the course of the patient's emergency department visit, the patient's history, examination, and differential diagnosis were reviewed with the patient. The patient was placed on a teletypesetter monitor with oximetry and frequent blood pressure monitoring. The patient had IV access obtained and blood work sent for analysis. The patient's case was checked out to me by Celeste, the nurse practitioner. Please see her complete history and physical. The patient' s case was checked out to me at the conclusion of her shift and also managed with me during the initial evaluation. The patient had an EKG done on arrival that shows atrial fibrillation heart rate of 76, QRS duration 99 ms, QTC [address] segment elevation. The patient arrives with generalized weakness, frequent falls, shortness of breath. The patient was initially provided Lasix 80 mg IV, DuoNeb 2. The patient's laboratory studies were reviewed and remarkable for 09/14/17 21:56 Total Protein 7.3, Albumin 3.3 L, Calcium Level 8.8, Magnesium Level 2.2, Alkaline Phosphatase 118 H, Aspartate Amino Transf (AST/SGOT) 14 L, Alanine Aminotransferase (ALT/SGPT) 19, Total Bilirubin 1.0, potassium was noted to be 3 and supplemented orally with potassium chloride. Lactic acid 1.9, BNP is 470 within normal initial set of cardiac enzymes. PT 12, PTT 28.7. Radiology studies were reviewed and remarkable for chest x-ray that shows cardiomegaly, increased density at the right lung base representing a right sided effusion and some accompanying atelectasis or consolidation. CT scan of the brain shows no acute abnormality. The patient has old lacunar infarcts in the left side and within the right side of the angelique. I was called into the room and the patient was noted to be saturating in the mid 80s on nasal cannula O2. The patient was on his side, hunched over. His was at the bedside and reports that he normally sleeps on his right side in the position. The patient was difficult to awaken. She reports that he is hard of hearing. She reports that he has been more lethargic over the last couple of weeks, however he was refusing to come to the emergency department up until today. The patient had his O2 increase by 2 L. An ABG was ordered. The patient was straightened up in the bed to facilitate breathing. The patient's desaturation may be related to a component of sleep apnea. The patient will be placed on BiPAP when he arrives back in the room after his CT scan of the brain. Prior to the patient going on BiPAP the patient had a ABG that revealed a pH of 7.36, PCO2 65.8, PO2 57.2, bicarb 36.6. The patient was started on BiPAP at 12/ 5, 40% which will be weaned as tolerated to maintain his O2 saturation at greater than or equal to 92%. The patient was given an additional DuoNeb and Solu-Medrol 125 mg IV. The patient on reexamination is noted to be tolerating BiPAP well. The patient' s mentation appears to be improving. The patient's results were discussed with the patient, including the plan of care. I explained that further testing and/ or monitoring is indicated based on the patient's history, examination, and/ or laboratory findings. Therefore, I recommended admission for additional evaluation. The patient expressed understanding and was agreeable with this plan. The patient was admitted to the hospital in guarded condition and sent to a bed under the care of the [facility] service. Physician Communication Physician Communication The patient's case including history, pertinent physical examination findings, and laboratory studies were discussed with Dr. Jack. It was agreed that the patient would be admitted to the [facility] service. Diagnosis Primary Impression: CHF exacerbation Qualified Codes: I50.9 - Heart failure, unspecified Additional Impression: COPD with acute exacerbation Admitting Information Admitting Physician Requests: Lee Ann Virk MD September 14, 2017 22:51
--- NOTE | 2017-09-14 22:56 | RADRPT ---
EXAM DATE/TIME: 09/14/2017 22:08 [facility] COMPARISON: CHEST SINGLE AP, May 24, 2017, 17:04. INDICATIONS : Short of breath. MEDICAL HISTORY : None. SURGICAL HISTORY : None. ENCOUNTER: Initial ACUITY: 1 day PAIN SCORE: Non-responsive. LOCATION: Bilateral chest FINDINGS: The heart size is enlarged. There is increased density at the right base. The left lung is grossly cl ear. CONCLUSION: 1. Cardiomegaly. 2. Increased density at the right base representing a right effusion and some accompanying atelectasi s or consolidation. Armen aKy MD on September 14, 2017 at 22:53 Board Certified Radiologist. This report was verified electronically.
[2017-09-14 23:01] VITALS: BP 218/86; PULSE 74; O2SAT 93
[2017-09-14] MEDS ORDERED: POTASSIUM CHLORIDE 20 MEQ CONTROLLED RELEASE TAB PO ONE (23:30)
[2017-09-15] VITALS (18 sets, daily range): BP systolic 103–193; BP diastolic 52–103; PULSE 0–116; RESP 20–34; TEMP 98.4; O2SAT 86–100
[2017-09-15] MEDS ORDERED: RESP: ALBUTEROL 2.5 MG/IPRATROPIUM 0.5 MG NEB (SCH) NEB ONE (00:30)
[2017-09-15] MEDS ORDERED: methylPREDNISolone SOD SUCC 125 MG/2 ML VIAL IV PUSH ONE (00:30)
--- NOTE | 2017-09-15 00:45 | RADRPT ---
EXAM DATE/TIME: 09/15/2017 00:27 [facility] COMPARISON: CT BRAIN W/O CONTRAST, May 21, 2017, 13:53. INDICATIONS : Altered mental status. RADIATION DOSE: 43.61 CTDIvol (mGy) ; Patient motion MEDICAL HISTORY : Hypertension. Cardiovascular disease Carcinoma, prostate. SURGICAL HISTORY : None. ENCOUNTER: Initial ACUITY: 1 day PAIN SCALE: 0/10 LOCATION: cranial TECHNIQUE: Multiple contiguous axial images were obtained of the head. Using automated exposure control and adj ustment of the mA and/or kV according to patient size, radiation dose was kept as low as reasonably a chievable to obtain optimal diagnostic quality images. DICOM format image data is available electro nically for review and comparison. FINDINGS: There is marked central and cortical atrophy with dilatation of ventricular and sulcal spaces. There is no parenchymal hemorrhage, acute infarction or mass lesion identified. There are no extra-axial fluid collections appreciated. The posterior fossa is unremarkable with midline fourth ventricle. T he portion of the orbits and paranasal sinuses visualized are unremarkable. CONCLUSION: No acute disease. Old lacunar infarcts on the left side and within the right side of the angelique. Austen Lui MD on September 15, 2017 at 0:44 Board Certified Radiologist. This report was verified electronically.
[2017-09-15] MEDS ORDERED: SODIUM CHLORIDE 0.9% FLUSH 10 ML FLUSH IV FLUSH PRN (01:30)
[2017-09-15] MEDS ORDERED: SENNOSIDES 8.6 MG TAB PO PRN (01:30)
[2017-09-15] MEDS ORDERED: hydrALAZINE HCL 20 MG/ML VIAL IV PUSH ONE (01:30)
[2017-09-15] MEDS ORDERED: ENALAPRILAT 1.25 MG/ML VIAL IV PUSH PRN (01:30)
[2017-09-15] MEDS ORDERED: BISACODYL 10 MG SUPP RECTAL PRN ×2 (01:30→18:15)
[2017-09-15] MEDS ORDERED: NALOXONE HCL 0.4 MG/ML AMP IV PUSH PRN (01:30)
[2017-09-15] MEDS ORDERED: hydrALAZINE HCL 20 MG/ML VIAL IV PUSH PRN (01:30)
[2017-09-15] MEDS ORDERED: LACTULOSE SYRUP 20 GM/30 ML CUP PO PRN (01:30)
[2017-09-15] MEDS ORDERED: MAGNESIUM HYDROXIDE SUSP 30 ML CUP PO PRN (01:30)
[2017-09-15] MEDS: POTASSIUM CHLOR 10 MEQ PREMIX 100 ML IV SCH ×3 (01:50→05:58)
--- NOTE | 2017-09-15 01:58 | HHI.HP ---
HPI Service [facility] Primary Care Physician [facility] Admission Diagnosis CHF exacerbation, CoPD exacerbation Diagnoses: Travel History International Travel<30 Days: No Contact w/Intl Traveler <30 Da: No Traveled to Known Affected Are: No History of Present Illness 36-year-old male with a history of CAD, COPD, stroke in May, [place] in May who is brought in by due to progressive worsening of malaise, generalized weakness, gradual worsening of slurred speech for the past 2 months. Patient fell several times over the past few weeks, and has gone to the point where he is too weak to lift himself up out of chair. says he has been very thirsty. Denies any fevers or chills. Bilateral lower extremity edema has been worsening over the past several months. Patient reportedly denies any chest pain. History obtained from as patient is on BiPAP and very somnolent. Review of Systems Except as stated in HPI: all other systems reviewed are Neg Past Family Social History Past Medical History COPD CHF Hypertension Prostate cancer status post resection Atrial fibrillation on Eliquis Diabetes mellitus Past Surgical History Prostate surgery. Hernia repair Reported Medications Reported Meds & Active Scripts Active Oxygen (O2) Device Liter GARRET.CANULA CONTINUOUS Oxygen Concentrator Portable Gaseous 2 L/min via Nasal Canula Continuous For 99 months Metoprolol Tartrate 25 Mg Tab 25 Mg PO Q12HR Eliquis (Apixaban) 2.5 Mg Tab 2.5 Mg PO BID Metformin (Metformin HCl) 500 Mg Tab 500 Mg PO DAILY With a meal Lasix (Furosemide) 40 Mg Tab 40 Mg PO DAILY Reported Nitroglycerin SL (Nitroglycerin) 0.4 Mg Subl 0.4 Mg SL DIRECTED PRN ONE TABLET UNDER THE TONGUE NEEDED FOR CHEST PAIN, MAY REPEAT EVERY FIVE MINUTES FOR A TOTAL OF 3 DOSES OR CALL 911 IF NO RELIEF Combivent Respimat Inh (Ipratropium-Albuterol Inh) 20-100 Shelter/Act Aero 1 Puff INH TID Lisinopril 20 Mg Tab 20 Mg PO DAILY Symbicort Inh (Budesonide/Formoterol Fumarate) 160-4.5 Mcg/Act Aero 1 Puff INH Q12HR Duloxetine DR (Duloxetine HCl) 20 Mg Capdr 20 Mg PO DAILY Trazodone (Trazodone HCl) 50 Mg Tab 25 Mg PO HS Allergies: Coded Allergies: No Known Allergies (Verified Adverse Reaction, Unknown, 05/21/17) Family History Mother with stroke. Father with ruptured aneurysm Social History One half pack per day since age 19 years old. Non-smoker. Nondrinker. Lives with . indicates that patient is to be DO NOT RESUSCITATE, and that he would not like lines or tubes, or artificial life support. Physical Exam Vital Signs Vital Signs Date Time Temp Pulse Resp B/P (MAP) Pulse Ox O2 Delivery O2 Flow Rate FiO2 09/15/17 00:14 64 169/103 (125) 100 09/14/17 23:01 74 218/86 (130) 93 Nasal Cannula 5.00 09/14/17 22:00 98 Nasal Cannula 4.00 09/14/17 21:51 70 231/95 (140) 87 Room Air 09/14/17 21:39 98.6 86 20 197/82 (120) 88 Physical Exam GENERAL: This is a well-nourished, well-developed patient, somnolent, wakes up to sternal rub. On BiPAP. SKIN: No rashes, ecchymoses or lesions. Cool and dry. HEAD: Atraumatic. Normocephalic. No temporal or scalp tenderness. EYES: Pupils equal round and reactive. Extraocular motions intact. No scleral icterus. No injection or drainage. ENT: Nose without bleeding, purulent drainage or septal hematoma. Throat without erythema, tonsillar hypertrophy or exudate. Uvula midline. Airway patent. NECK: Trachea midline. Positive JVD. no lymphadenopathy. Supple, nontender, no meningeal signs. CARDIOVASCULAR: Regular rate and rhythm without murmurs, gallops, or rubs. RESPIRATORY: Clear to auscultation on BiPAP. Breath sounds equal bilaterally. No wheezes, rales, or rhonchi. GASTROINTESTINAL: Abdomen soft, non-tender, nondistended. No hepato-splenomegaly , or palpable masses. No guarding. MUSCULOSKELETAL: Extremities without clubbing, cyanosis. No joint tenderness, effusion. No calf tenderness. Negative Homans sign bilaterally. NEUROLOGICAL: Somnolent, wakes to sternal rub. Cranial nerves II through XII intact. Motor and sensory grossly within normal limits. Patient is noncompliant with strength exam, however is noted to be moving all 4 extremities. on BiPAP. Laboratory Laboratory Tests Test 09/14/17 21:56 09/15/17 00:15 White Blood Count 10.0 Red Blood Count 4.63 Hemoglobin 13.7 Hematocrit 42.7 Mean Corpuscular Volume 92.3 Mean Corpuscular Hemoglobin 29.6 Mean Corpuscular Hemoglobin Concent 32.0 Red Cell Distribution Width 17.0 Platelet Count 223 Mean Platelet Volume 8.8 Neutrophils (%) (Auto) 79.1 Lymphocytes (%) (Auto) 11.0 Monocytes (%) (Auto) 9.3 Eosinophils (%) (Auto) 0.3 Basophils (%) (Auto) 0.3 Neutrophils # (Auto) 7.9 Lymphocytes # (Auto) 1.1 Monocytes # (Auto) 0.9 Eosinophils # (Auto) 0.0 Basophils # (Auto) 0.0 CBC Comment DIFF FINAL Differential Comment Prothrombin Time 12.0 Prothromb Time International Ratio 1.2 Activated Partial Thromboplast Time 28.7 Blood Urea Nitrogen 19 Creatinine 1.21 Random Glucose 157 Total Protein 7.3 Albumin 3.3 Calcium Level 8.8 Magnesium Level 2.2 Alkaline Phosphatase 118 Aspartate Amino Transf (AST/SGOT) 14 Alanine Aminotransferase (ALT/SGPT) 19 Total Bilirubin 1.0 Sodium Level 143 Potassium Level 3.0 Chloride Level 103 Carbon Dioxide Level 33.9 Anion Gap 6 Estimat Glomerular Filtration Rate 58 Lactic Acid Level 1.9 Total Creatine Kinase 53 Troponin I 0.02 B-Type Natriuretic Peptide 470 Blood Gas Puncture Site RT RADIAL Blood Gas Patient Temperature 98.6 Blood Gas HCO3 37 Blood Gas Base Excess 11.0 Blood Gas Oxygen Saturation 83 Arterial Blood pH 7.36 Arterial Blood Partial Pressure CO2 66 Arterial Blood Partial Pressure O2 57 Arterial Blood Oxygen Content 15.8 Arterial Blood Carboxyhemoglobin 2.0 Arterial Blood Methemoglobin 0.5 Blood Gas Hemoglobin 13.5 Oxygen Delivery Device NASAL CANNULA Blood Gas Liter Flow 3 Date/Time Source Procedure Growth Status 09/14/17 21:56 Blood Peripheral Aerobic Blood Culture Pending Received 09/14/17 21:56 Blood Peripheral Anaerobic Blood Culture Pending Received Result Diagram: 09/14/[id number] Caprini VTE Risk Assessment Caprini VTE Risk Assessment: Mod/High Risk (score >= 2) Caprini Risk Assessment Model Point Value = 1 Point Value = 2 Point Value = 3 Point Value = 5 Age 41-60 Minor surgery BMI > 25 kg/m2 Swollen legs Varicose veins or History of unexplained or recurrent spontaneous Oral contraceptives or hormone replacement Sepsis (< 1 month) Serious lung disease, including pneumonia (< 1 month) Abnormal pulmonary function Acute myocardial infarction Congestive heart failure (< 1 month) History of inflammatory bowel disease Medical patient at bed rest Age 61-74 Arthroscopic surgery Major open surgery (> 45 min) Laparoscopic surgery (> 45 min) Malignancy Confined to bed (> 72 hours) Immobilizing plaster cast Central venous access Age >= 75 History of VTE Family history of VTE Factor V Leiden Prothrombin [id number] Lupus anticoagulant Anticardiolipin antibodies Elevated serum homocysteine Heparin-induced thrombocytopenia Other congenital or acquired thrombophilia Stroke (< 1 month) Elective arthroplasty Hip, pelvis, or leg fracture Acute spinal cord injury (< 1 month) Prophylaxis Regimen Total Risk Factor Score Risk Level Prophylaxis Regimen 0-1 Low Early ambulation 2 Moderate Order ONE of the following: *Sequential Compression Device (SCD) *Heparin 5000 units SQ BID 3-4 Higher Order ONE of the following medications: *Heparin 5000 units SQ TID *Enoxaparin/Lovenox 40 mg SQ daily (WT < 150 kg, CrCl > 30 mL/min) *Enoxaparin/Lovenox 30 mg SQ daily (WT < 150 kg, CrCl > 10-29 mL/min) *Enoxaparin/Lovenox 30 mg SQ BID (WT < 150 kg, CrCl > 30 mL/min) AND/OR *Sequential Compression Device (SCD) 5 or more Highest Order ONE of the following medications: *Heparin 5000 units SQ TID (Preferred with Epidurals) *Enoxaparin/Lovenox 40 mg SQ daily (WT < 150 kg, CrCl > 30 mL/min) *Enoxaparin/Lovenox 30 mg SQ daily (WT < 150 kg, CrCl > 10-29 mL/min) *Enoxaparin/Lovenox 30 mg SQ BID (WT < 150 kg, CrCl > 30 mL/min) AND *Sequential Compression Device (SCD) Physician Certification 2 Midnight Certification Type: Admission for Inpatient Services Order for Inpatient Services The services are ordered in accordance with Medicare regulations or non- Medicare payer requirements, as applicable. In the case of services not specified as inpatient-only, they are appropriately provided as inpatient services in accordance with the 2-midnight benchmark. Estimated LOS (days): 3 days is the estimated time the patient will need to remain in the hospital, assuming treatment plan goals are met and no additional complications. Post-Hospital Plan: Not yet determined Floyd Jack MD September 15, 2017 01:58
[2017-09-15] MEDS ORDERED: ENALAPRILAT 1.25 MG/ML VIAL IV PUSH ONE (02:00)
[2017-09-15] MEDS ORDERED: DEXTROSE 50% IN WATER 50 ML VIAL(D50) IV PUSH PRN (02:15)
[2017-09-15] MEDS ORDERED: GLUCAGON 1 MG/ML VIAL OTHER PRN (02:15)
[2017-09-15] MEDS: methylPREDNISolone SOD SUCC 40 MG/1 ML VIAL IV PUSH SCH ×2 (06:02→13:22)
[2017-09-15] MEDS ORDERED: RESP: ALBUTEROL 0.63 MG/3 ML NEB (PRN) NEB (07:00)
--- NOTE | 2017-09-15 07:08 | HHI.PR ---
Subjective Remarks F/U RF. Patient obtunded currently on BiPAP. Seen with who agrees with thoracentesis, NGT insertion and hospice consult. Discussed with RN, patient had 5 second episode of seizure which she described as hyperextension of the extremities Objective Vitals Vital Signs Date Time Temp Pulse Resp B/P (MAP) Pulse Ox O2 Delivery O2 Flow Rate FiO2 09/15/17 05:55 101 134/63 (86) 91 BiPAP 09/15/17 04:13 97 35 09/15/17 03:23 76 159/67 (97) 95 BiPAP 09/15/17 01:59 98 BiPAP 09/15/17 01:51 74 189/97 (127) 98 09/15/17 01:31 96 35 09/15/17 00:30 95 60 09/15/17 00:14 64 169/103 (125) 100 09/14/17 23:01 74 218/86 (130) 93 Nasal Cannula 5.00 09/14/17 22:00 98 Nasal Cannula 4.00 09/14/17 21:51 70 231/95 (140) 87 Room Air 09/14/17 21:39 98.6 86 20 197/82 (120) 88 I/O 09/14/17 09/14/17 09/14/17 09/15/17 09/15/17 09/15/17 07:00 15:00 23:00 07:00 15:00 23:00 Intake Total 300 ml Output Total 2500 ml Balance -2200 ml Intake IV Total 300 ml Output Urine Total 2500 ml # Voids 2 Result Diagram: 09/14/17215509/14/[id number] Other Results Last Impressions Chest CT 09/15/17 0000 Signed Impressions: Service Date/Time: Friday, September 15, 2017 10:48 - CONCLUSION: Large right pleural effusion with compressive atelectasis /consolidation right lower lobe. Trace left pleural effusion. Cardiomegaly with coronary calcifications. Ayan Dickens MD FACR Chest X-Ray 09/14/[id number] Signed Impressions: Service Date/Time: Thursday, September 14, 2017 22:08 - CONCLUSION: 1. Cardiomegaly. 2. Increased density at the right base representing a right effusion and some accompanying atelectasis or consolidation. Armen Kay MD Head CT 09/14/17 0000 Signed Impressions: Service Date/Time: Friday, September 15, 2017 00:27 - CONCLUSION: No acute disease. Old lacunar infarcts on the left side and within the right side of the angelique. Austen Lui MD Imaging Last Impressions Chest X-Ray 09/14/172152 Signed Impressions: Service Date/Time: Thursday, September 14, 2017 22:08 - CONCLUSION: 1. Cardiomegaly. 2. Increased density at the right base representing a right effusion and some accompanying atelectasis or consolidation. Armen Kay MD Head CT 09/14/17 0000 Signed Impressions: Service Date/Time: Friday, September 15, 2017 00:27 - CONCLUSION: No acute disease. Old lacunar infarcts on the left side and within the right side of the angelique. Austen Lui MD Objective Remarks GENERAL: This is a well-nourished, well-developed patient on BiPAP SKIN: No rashes, ecchymoses or lesions. Cool and dry. CARDIOVASCULAR: Regular rate and rhythm without murmurs, gallops, or rubs. RESPIRATORY: Decreased breath sounds. No wheezes, rales, or rhonchi. GASTROINTESTINAL: Abdomen soft, non-tender, nondistended. No guarding. MUSCULOSKELETAL: Extremities without clubbing, cyanosis. No joint tenderness, effusion. No calf tenderness. Negative Homans sign bilaterally. NEUROLOGICAL: Obtunded A/P Problem List: (1) COPD with acute exacerbation ICD Code: J44.1 - Chronic obstructive pulmonary disease with (acute) exacerbation Assessment and Plan Acute on chronic Hypercapnic hypoxic respiratory failure. Continue BiPAP keep saturation at least 92% COPD exacerbation. Continue IV Levaquin, Solu-Medrol, nebulizations and oxygen and increase activity as tolerated CHF exacerbation. Large right pleural effusion thoracentesis ordered. CHF education, I/O and monitor weight. Restart Lasix Hypokalemia. Replace follow-up repeat BMP and magnesium Accelerated hypertension. Improving continue home medications RN to verify NGT for tube feeding and med administration. Multiple medical conditions of CVA, A. fib, coronary artery disease status post OR and diabetes mellitus. Continue outpatient medications as appropriate DVT prophylaxis with SCD and Lovenox Poor prognosis. Hospice consult Terrell Gaxiola MD September 15, 2017 07:08
[2017-09-15] MEDS ORDERED: SYMB80AE INH (07:22)
[2017-09-15] MEDS ORDERED: MIRTA15 PO (07:22)
[2017-09-15] MEDS ORDERED: ASPI-516 CHEW (07:22)
[2017-09-15] MEDS ORDERED: METF1000 PO (07:22)
[2017-09-15] MEDS ORDERED: APIX5TAB PO (07:22)
[2017-09-15] MEDS ORDERED: LISI40TA PO (07:22)
[2017-09-15] MEDS ORDERED: METO100T PO (07:22)
[2017-09-15] MEDS ORDERED: VITA100064 PO (07:22)
[2017-09-15] MEDS: RESP: ALBUTEROL 2.5 MG/IPRATROPIUM 0.5 MG NEB (SCH) NEB ×2 (07:26→13:24)
--- NOTE | 2017-09-15 08:51 | MB ---
cc: Evelin Waters MD DATE: 09/15/2017 REASON FOR CONSULTATION: Respiratory failure, COPD. HISTORY OF PRESENT ILLNESS: Mr. Prescott is a 76-year-old male with a known history of COPD and chronic respiratory failure. He has history of coronary artery disease with previous myocardial infarction. He has history of previous CVA as well. He is admitted with worsening lethargy, difficult to arouse, placed on BiPAP therapy. The patient does not relate any history. History is obtained from his record. Apparently, he had fallen several times while at home. However, at home, no history of fever, chills, cough, expectoration, or hemoptysis. No chest pain. PAST MEDICAL HISTORY: 1. Findings of chronic obstructive pulmonary disease. 2. Coronary artery disease, post-myocardial infarction. 3. Atrial fibrillation on anticoagulant therapy. 4. Prostate cancer, post prostatectomy. 5. Hypertension. 6. Diabetes mellitus. PAST SURGICAL HISTORY: Prostatectomy and hernia repair. MEDICATIONS AT HOME: Include nitroglycerin, Combivent p.r.n., lisinopril, Symbicort, duloxetine, trazodone. ALLERGIES: NONE KNOWN TO MEDICATIONS. FAMILY HISTORY: Mother after a stroke. Father had a ruptured aneurysm. SOCIAL HISTORY: Long smoking history since age 19, apparently stopped smoking recently. He does not drink any alcohol. , lives with . REVIEW OF SYSTEMS: A 12-point review of systems is as per HPI and past history, otherwise negative. PHYSICAL EXAMINATION: GENERAL: The patient is obtunded, difficult to arouse. VITAL SIGNS: Temperature 98, pulse 84, respirations 20, blood pressure 190/80, oxygen saturation 95% on BiPAP therapy. HEENT: Unremarkable. Eyes without icterus. NECK: Without adenopathy or thyroid enlargement. Central trachea. CHEST: No dullness to percussion. A few rhonchi at bases. HEART: PMI distant, irregularity noted. ABDOMEN: Lax. Bowel sounds are audible. EXTREMITIES: No clubbing, cyanosis. 2+ edema. LABORATORY DATA: White count 10,000, hemoglobin 13, hematocrit 42, platelets at 223,000. Sodium 143, potassium 3.0, BUN 19, creatinine 1.2, glucose 157. Chest x-ray 09/14/2017 with cardiomegaly, question right pleural effusion or atelectatic change. CT scan of the brain without acute disease, old lacunar infarct in the left is noted, as well as in the right angelique. Arterial blood gas actually pH 7.36, pCO2 66, pO2 57 on 3 liters oxygen, on BiPAP therapy, 15/5, pH 7.40, pCO2 59, pO2 70, 35% inspired oxygen fraction. IMPRESSION: 1. Hypoxic and hypercarbic respiratory failure. 2. COPD. 3. Question obstructive and/or central sleep apnea. 4. Coronary artery disease. 5. Hypertension. 6. Diabetes mellitus. 7. Status post cerebrovascular accident. 8. Prostate cancer, post-resection. PLAN: The patient will be maintained on oxygen therapy, as well as BiPAP therapy as needed. CT scan of the chest without contrast would be appropriate to assess if there is any infiltrate on the chest x-ray. The small effusion would be explained by the patient's history of congestive heart failure; however, CT scan will delineate the changes whether related mainly to effusion, atelectasis or pneumonia. Meanwhile, continue his bronchodilator therapy. We will follow. Empiric antibiotic therapy would be appropriate as well for possible underlying infection. We will follow the patient's course along with you and, depending on progress proceed further. I do thank you for asking me to partake in Mr. Prescott's care. Evelin Waters MD WWW/TL , 08:23 AM , 08:49 AM
[2017-09-15] MEDS ORDERED: APIXABAN 2.5 MG TABLET PO SCH (09:00)
[2017-09-15] MEDS ORDERED: METOPROLOL TARTRATE 25 MG TAB PO SCH (09:00)
[2017-09-15] MEDS ORDERED: ENOXAPARIN SODIUM 40 MG/0.4 ML SYRINGE SQ SCH (09:00)
[2017-09-15] MEDS ORDERED: LEVOFLOXACIN 500 MG PREMIX INJ 100 ML IV SCH (09:00)
[2017-09-15] MEDS ORDERED: LISINOPRIL 20 MG TAB PO SCH (09:00)
[2017-09-15] MEDS ORDERED: SODIUM CHLORIDE 0.9% FLUSH 10 ML FLUSH IV FLUSH SCH (09:00)
--- NOTE | 2017-09-15 09:14 | MB ---
cc: Luis Daniel Martinez MD DATE: 09/15/2017 REASON FOR CONSULTATION: Congestive heart failure. HISTORY OF PRESENT ILLNESS: History is basically unobtainable from the patient. He is unable to answer any of my questions. He is arousable. According to the electronic medical records, he is a 76-year-old white male with a history of multiple medical problems including carotid disease, diabetes, COPD, hypertension, nonsustained ventricular tachycardia, CVAs who was brought to the hospital with generalized weakness, as well as a fall. PAST MEDICAL HISTORY: 1. Prostate cancer. 2. Hyperlipidemia. 3. Hypertension. 4. Chronic obstructive pulmonary disease. 5. Diabetes. 6. Carotid disease with CT angiogram and carotid ultrasound showing a totally occluded right internal carotid artery and mild disease of the left internal carotid artery 05/2017. 7. Atrial fibrillation of unclear chronicity. 8. Nonsustained ventricular tachycardia noted on monitoring, 05/2017. 9. CVAs by head CTs including an old lacunar infarct on the left side and within the right side of the angelique. PAST SURGICAL HISTORY: Prostate surgery. MEDICATIONS AT HOME: 1. Furosemide 40 mg daily. 2. Eliquis 2.5 mg b.i.d. 3. Metoprolol tartrate 25 mg b.i.d. 2. Lisinopril 20 mg daily. ALLERGIES: NO KNOWN DRUG ALLERGIES. FAMILY HISTORY: Noncontributory. SOCIAL HISTORY: The patient continues to smoke cigarettes. At one point, he was up to 2 packs of cigarettes per day. REVIEW OF SYSTEMS: Currently unobtainable. PHYSICAL EXAMINATION: VITAL SIGNS: Blood pressure the 136/63 with a pulse of 96, respirations 26. GENERAL: He is a well-developed, well-nourished white male in no definite acute distress. NECK: Jugular venous pressure is very hard to assess. Carotid pulses are 2+ bilaterally and without bruits. CHEST: Reveals diminished breath sounds diffusely. CARDIAC: He has an irregularly irregular rhythm without S3 or murmur. ABDOMEN: He has a soft, obese, nontender. Bowel sounds are present. There is no definite hepatosplenomegaly. EXTREMITIES: Reveals no clubbing or cyanosis. There is 1+ pretibial edema bilaterally. EKG: Shows atrial fibrillation, nonspecific lateral T-wave abnormalities. LABORATORY DATA: Includes normal CBC. Potassium 3.0, BUN 19, creatinine 1.21, CK 53, troponin 0.02, INR 1.2. IMAGING: Chest x-ray shows possible right small pleural effusion. IMPRESSION: Probably overall stable cardiac status in this 76-year-old white male with a history of prostate cancer, chronic obstructive pulmonary disease, diabetes, hypertension, carotid disease, atrial fibrillation which is probably chronic, nonsustained ventricular tachycardia, history of cerebrovascular accidents. His chest x-ray is not entirely consistent with congestive heart failure. He apparently had a technically very difficult echocardiogram on h his last admission about 4 months ago with probably normal or low normal left ventricular systolic function. There is no definite evidence for acute coronary syndrome. He has had no significant heart rate control issues with his atrial fibrillation. RECOMMENDATIONS: 1. Overall, conservative cardiac management and therapy. Would try to resume his beta dayanna and TAVON inhibitor. 2. Continue anticoagulation therapy for his chronic atrial fibrillation. MD LIZA Bhakta/IAN , 08:56 AM , 09:13 AM AZEEM
--- NOTE | 2017-09-15 09:17 | EKG ---
Date Performed: 09/14/2017 Time Performed: 21:51:33 PTAGE: 76 years EKG: ATRIAL FIBRILLATION MARKED LEFT AXIS DEVIATION NONSPECIFIC ST & T-WAVE ABNORMALITY ABNORMAL ECG PREVIOUS TRACING : 05/23/2017 05.27 DOCTOR: Austen Meyer Interpretating Date/Time 09/15/2017 09:14:05
[2017-09-15] MEDS: INSULIN ASPART SUPPLEMENTAL SCALE SQ SCH ×2 (09:34→13:22)
[2017-09-15 10:01] LABS: BICARBONATE 34.3 MEQ/L (21.0-32.0); CALCIUM 8.8 MG/DL (8.5-10.1); CREATININE 1.13 MG/DL (0.60-1.30); MAGNESIUM 2.5 MG/DL (1.5-2.5)
--- NOTE | 2017-09-15 11:31 | RADRPT ---
EXAM DATE/TIME: 09/15/2017 10:48 [facility] COMPARISON: No previous studies available for comparison. INDICATIONS : Pneumonia. RADIATION DOSE: 19.61 CTDIvol (mGy) MEDICAL HISTORY : Hypertension. Chronic obstructive pulmonary disease. Carcinoma, prostate. Diabetes. SURGICAL HISTORY : None. ENCOUNTER: Initial ACUITY: 1 day PAIN SCALE: Non-responsive LOCATION: chest TECHNIQUE: Volumetric scanning of the chest was performed. Using automated exposure control and adjustment of t he mA and/or kV according to patient size, radiation dose was kept as low as reasonably achievable to obtain optimal diagnostic quality images. DICOM format image data is available electronically for r eview and comparison. Follow-up recommendations for detected pulmonary nodules are based at a minimum on nodule size and pa tient risk factors according to Fleischner Society Guidelines. FINDINGS: There is cardiomegaly with larged right pleural effusion and compressive atelectasis right lung. The re is mild interstitial edema with trace effusion on the left. There is no axillary or mediastinal adenopathy. Moderate coronary calcifications are noted. Gallstones are noted in the benign appearing gallbladder Upper abdominal contents otherwise unremarkable. CONCLUSION: Large right pleural effusion with compressive atelectasis /consolidation right lower lobe. Trace lef t pleural effusion. Cardiomegaly with coronary calcifications. Ayan Dickens MD FACR on September 15, 2017 at 11:26 Board Certified Radiologist. This report was verified electronically.
[2017-09-15] MEDS ORDERED: LORazepam 2 MG/ML VIAL IV PUSH PRN ×5 (14:00→18:15)
[2017-09-15] MEDS ORDERED: FUROSEMIDE 40 MG TAB PO SCH (15:00)
--- NOTE | 2017-09-15 15:13 | MG ---
cc: Brooklyn Vazquez MD AGE: [age] years old. EEG NUMBER: [id number] REFERRING PHYSICIAN: Dr. Gaxiola. CLINICAL HISTORY: Echo, E53 with photic only, no sedation, unresponsive on BiPAP. CT, no acute findings. Old lacune left side in the right angelique. Admitted with generalized weakness and falls, shortness of breath ongoing for about a week, swelling of the lips and hands, history of chronic obstructive pulmonary disease, heart disease, carotid stenosis on aspirin, Lasix, insulin, Solu-Medrol, Vasotec and hydralazine. DESCRIPTION OF RECORD: This is a very low-amplitude EEG with a lot of head movement with breathing, shows artifact but predominant delta frequency throughout bilaterally. There is generalized slowing throughout this recording. Photic stimulation was performed towards the end of the recording. There is no change. Nail bed pressure stimulation of the extremities did not change the background. IMPRESSION: Severely suppressed background, consistent with either severe encephalopathy or severe cerebral dysfunction. Clinical correlation. No epileptic activity. Brooklyn Vazquez MD DF/CESAR , 03:00 PM , 03:12 PM
[2017-09-15] MEDS ORDERED: FUROSEMIDE 40 MG/4 ML VIAL IV PUSH SCH (17:00)
[2017-09-15] MEDS ORDERED: MORPHINE SULFATE 2 MG/ML SYRINGE IV PUSH PRN (17:15)
--- NOTE | 2017-09-15 17:51 | PD.CONS ---
Consult Service Palliative Care Consult Requested By Dr. Gaxiola Primary Care Physician [facility] Reason for Consultation a. To assist with evaluation and management of symptoms including: Dyspnea, anxiety. b. To assist medical decision maker(s) with: better understanding of current medical conditions; weighing benefits/burdens of medical treatment options; making medical treatment decisions. HPI History of Present Illness This is a 76 year old male who presented to the emergency room 09/14 for an evaluation of generalized weakness, fall 2, dyspnea, which the states has been ongoing for approximately 1 week. Patient has an past medical history of carotid stenosis, Coronary artery disease status post GA,hypertension , diabetes mellitus, COPD, CHF, atrial fibrillation and prostate cancer. The reports intermittent lower extremity, facial and hand edema. Presenting laboratory studies show WBC 10.0, hemoglobin 13.7, hematocrit 42.7, platelets 223, sodium 143, potassium 3.0, BUN 19, creatinine 1.21, B natruretic peptide 470, ABG pH 7.36, PCO2 66, PaO2 57, bicarbonate 37, base excess +11.0, saturation 83% on 3 L nasal cannula. He was placed on BiPAP and transferred to the intensive medical care unit for further evaluation and treatment. He has smoked since he was in the [employer] up to 2 packs per day, recently has weaned down to about 1 pack per day. On evaluation, this is a moderately overweight elderly male lying in bed obtunded, on BiPAP, in no acute distress. Most recent blood gas shows pH 6.86, PCO2 235, PaO2 56, saturation 59 %, HCO3 40, base excess 5.8 on 70% BiPAP. He remains dyspneic, despite maximum BiPAP support. He has visible accessory neck muscle use, tachypnea/bradypnea alternately, constant of moderate severity. He appears anxious continuously, worsening with any medical care or assessment. He is resisting movement of his limbs and grimacing. His is at bedside asking to withdraw him from the BiPAP mask and give him medications for comfort.His sister is also at bedside, supporting the and agrees with that request. Their federal mediation commissioner is with them for support. . Function/Cognitive Trajectory Of late, his reports he has been slowing down and unable to do what he had previously been able to do. He was more short of breath, fatigued and was generally sedentary due to dyspnea with any exertion or conversation. . Review of Systems ROS Limitations: Unresponsive Constitutional: COMPLAINS OF: Fatigue Endocrine: DENIES: Heat/cold intolerance, Polydipsia, Polyuria, Polyphagia Eyes: DENIES: Blurred vision, Diplopia, Eye inflammation, Eye pain, Vision loss , Photosensitivity, Double Vision, Blind spots Ears, nose, mouth, throat: DENIES: Tinnitus, Hearing loss, Vertigo, Nasal discharge, Oral lesions, Throat pain, Hoarseness, Ear Pain, Running Nose, Epistaxis, Sinus Pain, Toothache, Odynophagia Respiratory: COMPLAINS OF: Shortness of breath Cardiovascular: COMPLAINS OF: Dyspnea on Exertion, Lower Extremity Edema Gastrointestinal: DENIES: Abdominal pain, Black stools, Bloody stools, Constipation, Diarrhea, Nausea, Vomiting, Difficulty Swallowing, Anorexia, Dyspepsia or heartburn, Excessive gas, Bloating, Vomiting blood Genitourinary: DENIES: Sexual dysfunction, Urinary frequency, Urinary incontinence, Urgency, Hematuria, Dysuria, Nocturia, Penile Discharge, Testicular Pain, Testicular Swelling, Hesitancy, Dribbling, Decreased stream Musculoskeletal: DENIES: Joint pain, Muscle aches, Stiffness, Joint Swelling, Back pain, Neck pain, Decreased range of motion Integumentary: DENIES: Abnormal pigmentation, Nail changes, Pruritus, Rash, Nodules, Tumors, Excessive dryness, Non-healing sores Hematologic/Lymphatics: DENIES: Bruising, Lymphadenopathy, Prolonged bleed w/ proced, History of transfusions Immunologic/Allergic: DENIES: Eczema, Urticaria Neurologic: COMPLAINS OF: Poor Balance Psychiatric: COMPLAINS OF: Anxiety Past Family Social History Coded Allergies: No Known Allergies (Verified Adverse Reaction, Unknown, 05/21/17) Past Medical History COPD CHF Hypertension Prostate cancer status post resection Atrial fibrillation on Eliquis Diabetes mellitus Past Surgical History Prostate surgery. Hernia repair Reported Medications Reported Meds & Active Scripts Active Lasix (Furosemide) 40 Mg Tab 40 Mg PO DAILY Reported Symbicort Inh (Budesonide/Formoterol Fumarate) 80-4.5 Mcg/Act Aero 2 Puff INH Q12HR Eliquis (Apixaban) 5 Mg Tab 5 Mg PO BID Mirtazapine 15 Mg Tab 15 Mg PO HS Aspirin 81 Mg Chew 81 Mg CHEW DAILY Vitamin D3 (Cholecalciferol) 1,000 Unit Tab 1,000 Units PO DAILY Lisinopril 40 Mg Tab 40 Mg PO DAILY Metoprolol Tartrate 100 Mg Tab 100 Mg PO BID Metformin (Metformin HCl) 1,000 Mg Tab 1,000 Mg PO BIDPC Combivent Respimat Inh (Ipratropium-Albuterol Inh) 20-100 Fdc/Act Aero [address] TID Dul[address] (Duloxetine HCl) 20 Mg Capdr 20 Mg PO DAILY Trazodone (Trazodone HCl) 50 Mg Tab 25 Mg PO HS Current Medications Medications (Trade) Dose Ordered Sig/Shauna Route Start Time Stop Time Status Last Admin (Vasotec Inj) 1.25 mg Q6H PRN IV PUSH 09/15/17 01:30 (Apresoline Inj) 10 mg Q30M PRN IV PUSH 09/15/17 01:30 (NS Flush) 2 ml UNSCH PRN IV FLUSH 09/15/17 01:30 (NS Flush) 2 ml BID IV FLUSH 09/15/17 09:00 09/15/17 09:35 (Narcan Inj) 0.4 mg UNSCH PRN IV PUSH 09/15/17 01:30 (Milk Of Magnesia Liq) 30 ml Q12H PRN PO 09/15/17 01:30 (Senokot) 17.2 mg Q12H PRN PO 09/15/17 01:30 (Dulcolax Supp) 10 mg DAILY PRN RECTAL 09/15/17 01:30 (Lactulose Liq) 30 ml DAILY PRN PO 09/15/17 01:30 (SoluMEDROL INJ) 40 mg Q8HR IV PUSH 09/15/17 06:00 09/15/17 13:22 (Duoneb Neb) 1 ampule Q6HR WHILE AWAKE NEB NEB 09/15/17 08:00 09/15/17 07:26 (NovoLOG SUPPLEMENTAL SCALE) 1 ACHS SLIDING SCALE SQ 09/15/17 08:00 09/15/17 13:22 (D50w (Vial) Inj) 50 ml UNSCH PRN IV PUSH 09/15/17 02:15 (Glucagon Inj) 1 mg UNSCH PRN OTHER 09/15/17 02:15 (Albuterol Neb) 0.63 mg Q4HR NEB PRN NEB 09/15/17 07:00 Levofloxacin/ Dextrose 100 ml @ 100 mls/hr Q24H IV 09/15/17 09:00 09/15/17 09:34 (Lopressor) 25 mg Q12HR PO 09/15/17 09:00 (Prinivil) 20 mg DAILY PO 09/15/17 09:00 (Eliquis) 2.5 mg BID PO 09/15/17 09:00 (Ativan Inj) 1 mg Q6H PRN IV PUSH 09/15/17 14:00 09/15/17 17:15 (Aspirin Chew) 81 mg DAILY CHEW 09/16/17 09:00 (Lasix Inj) 40 mg DAILY IV PUSH 09/15/17 17:00 09/15/17 17:18 (Morphine Inj) 2 mg Q4H PRN IV PUSH 09/15/17 17:15 UNV (Ativan Inj) 1 mg Q4H PRN IV PUSH 09/15/17 17:15 UNV Family History Mother with stroke. Father with ruptured aneurysm Substance Use Tobacco: Smoked up to 2 packs per day since his 20s, recently weaned down to 1 pack per day. None Alcohol: None none Prescription med abuse: None Illicits: None . Psychosocial History He was born in [facility], [place] and moved to [place] at age 8. 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 He has been to his [employer] for over 40 years. He has 3 children, Genesis, Ck and Calvin. . Spiritual/Cultural Factors His personal toy maker is at bedside. . Living Will: Never completed Health Care Surrogate: Never completed Durable Power of Motel Maid: Never completed Physical Exam Vital Signs Date Time Temp Pulse Resp B/P (MAP) Pulse Ox O2 Delivery O2 Flow Rate FiO2 09/15/17 16:01 97 100 09/15/17 15:42 (92) 96 BiPAP 15.00 70 09/15/17 13:25 92 23 137/70 (92) 93 BiPAP 70 09/15/17 11:41 96 70 09/15/17 11:33 94 70 09/15/17 10:56 116 34 193/88 (123) 90 Non-Rebreather 15.00 09/15/17 07:28 94 09/15/17 07:20 93 BiPAP 35 09/15/17 07:14 96 26 136/63 (87) 93 BiPAP 35 09/15/17 05:55 101 134/63 (86) 91 BiPAP 09/15/17 04:13 97 35 09/15/17 03:23 76 159/67 (97) 95 BiPAP 09/15/17 01:59 98 BiPAP 09/15/17 01:51 74 189/97 (127) 98 09/15/17 01:31 96 35 09/15/17 00:30 95 60 09/15/17 00:14 64 169/103 (125) 100 09/14/17 23:01 74 218/86 (130) 93 Nasal Cannula 5.00 09/14/17 22:00 98 Nasal Cannula 4.00 09/14/17 21:51 70 231/95 (140) 87 Room Air 09/14/17 21:39 98.6 86 20 197/82 (120) 88 09/15/17 09/16/17 19:00 07:00 Intake Total 200 ml Balance 200 ml Intake IV Total 200 ml Exam CONSTITUTIONAL/GENERAL: This is moderately obese patient, on a BiPAP mask, in moderate distress. TUBES/LINES/DRAINS: PIV SKIN: No jaundice, rashes, or lesions. No wounds seen anteriorly. Skin temperature appropriate. Not diaphoretic. HEAD: Atraumatic. Normocephalic. EYES: Pupils equal and round and sluggishly reactive. No scleral icterus. No injection or drainage. Fundi not examined. ENT: Nose without bleeding or purulent drainage. NECK: Trachea midline. Supple, nontender. No palpable thyroid enlargement or nodularity. CARDIOVASCULAR: Irregular rhythm, controlled rate, no rub murmur or gallop auscultated. RESPIRATORY/CHEST: Bradypnea, on BiPAP, rhonchorous breath sounds GASTROINTESTINAL: Abdomen obese, soft, nondistended. No hepato-splenomegaly, or palpable masses. No guarding. Bowel sounds present. GENITOURINARY: Without palpable bladder distension. Mccord catheter in place. MUSCULOSKELETAL: Extremities without clubbing or cyanosis. 1+ edema. No joint tenderness or effusion noted. No calf tenderness. No mottling or clubbing. LYMPHATICS: No palpable cervical or supraclavicular adenopathy. NEUROLOGICAL: Obtunded PSYCHIATRIC: Obtunded. . Diagnostic Tests Laboratory Laboratory Tests Test 09/14/17 21:56 09/15/17 00:15 09/15/17 02:09 09/15/17 07:44 White Blood Count 10.0 TH/MM3 (4.0-11.0) Red Blood Count 4.63 MIL/MM3 (4.50-5.90) Hemoglobin 13.7 GM/DL (13.0-17.0) Hematocrit 42.7 % (39.0-51.0) Mean Corpuscular Volume 92.3 FL (80.0-100.0) Mean Corpuscular Hemoglobin 29.6 PG (27.0-34.0) Mean Corpuscular Hemoglobin Concent 32.0 % (32.0-36.0) Red Cell Distribution Width 17.0 % (11.6-17.2) Platelet Count 223 TH/MM3 (150-450) Mean Platelet Volume 8.8 FL (7.0-11.0) Neutrophils (%) (Auto) 79.1 % (16.0-70.0) Lymphocytes (%) (Auto) 11.0 % (9.0-44.0) Monocytes (%) (Auto) 9.3 % (0.0-8.0) Eosinophils (%) (Auto) 0.3 % (0.0-4.0) Basophils (%) (Auto) 0.3 % (0.0-2.0) Neutrophils # (Auto) 7.9 TH/MM3 (1.8-7.7) Lymphocytes # (Auto) 1.1 TH/MM3 (1.0-4.8) Monocytes # (Auto) 0.9 TH/MM3 (0-0.9) Eosinophils # (Auto) 0.0 TH/MM3 (0-0.4) Basophils # (Auto) 0.0 TH/MM3 (0-0.2) CBC Comment DIFF FINAL Differential Comment Prothrombin Time 12.0 SEC (9.8-11.6) Prothromb Time International Ratio 1.2 RATIO Activated Partial Thromboplast Time 28.7 SEC (24.3-30.1) Blood Urea Nitrogen 19 MG/DL (7-18) 16 MG/DL (7-18) Creatinine 1.21 MG/DL (0.60-1.30) 1.13 MG/DL (0.60-1.30) Random Glucose 157 MG/DL (74-106) 161 MG/DL (74-106) Total Protein 7.3 GM/DL (6.4-8.2) Albumin 3.3 GM/DL (3.4-5.0) Calcium Level 8.8 MG/DL (8.5-10.1) 8.8 MG/DL (8.5-10.1) Magnesium Level 2.2 MG/DL (1.5-2.5) 2.5 MG/DL (1.5-2.5) Alkaline Phosphatase 118 U/L (45-117) Aspartate Amino Transf (AST/SGOT) 14 U/L (15-37) Alanine Aminotransferase (ALT/SGPT) 19 U/L (12-78) Total Bilirubin 1.0 MG/DL (0.2-1.0) Sodium Level 143 MEQ/L (136-145) 144 MEQ/L (136-145) Potassium Level 3.0 MEQ/L (3.5-5.1) 3.5 MEQ/L (3.5-5.1) Chloride Level 103 MEQ/L (98-107) 101 MEQ/L (98-107) Carbon Dioxide Level 33.9 MEQ/L (21.0-32.0) 34.3 MEQ/L (21.0-32.0) Anion Gap 6 MEQ/L (5-15) 9 MEQ/L (5-15) Estimat Glomerular Filtration Rate 58 ML/MIN (>89) 63 ML/MIN (>89) Lactic Acid Level 1.9 mmol/L (0.4-2.0) Total Creatine Kinase 53 U/L (39-308) Troponin I 0.02 NG/ML (0.02-0.05) B-Type Natriuretic Peptide 470 PG/ML (0-100) Blood Gas Puncture Site RT RADIAL RT RADIAL Blood Gas Patient Temperature 98.6 98.6 Blood Gas HCO3 37 mmol/L (22-26) 36 mmol/L (22-26) Blood Gas Base Excess 11.0 mmol/L (-2-2) 10.6 mmol/L (-2-2) Blood Gas Oxygen Saturation 83 % (90-100) 91 % (90-100) Arterial Blood pH 7.36 (7.380-7.420) 7.40 (7.380-7.420) Arterial Blood Partial Pressure CO2 66 mmHg (38-42) 59 mmHg (38-42) Arterial Blood Partial Pressure O2 57 mmHG (61-120) 70 mmHG (61-120) Arterial Blood Oxygen Content 15.8 Vol % (12.0-20.0) 17.0 Vol % (12.0-20.0) Arterial Blood Carboxyhemoglobin 2.0 % (0-4) 2.0 % (0-4) Arterial Blood Methemoglobin 0.5 % (0-2) 0.7 % (0-2) Blood Gas Hemoglobin 13.5 G/DL (12.0-16.0) 13.4 G/DL (12.0-16.0) Oxygen Delivery Device NASAL CANNULA BiPAP Blood Gas Liter Flow 3 L/M Blood Gas Ventilator Setting IPAP15/EPAP5 Blood Gas Inspired Oxygen 35 % Test 09/15/17 11:18 09/15/17 12:22 Blood Gas Puncture Site LT RADIAL LT RADIAL Blood Gas Patient Temperature 98.6 98.6 Blood Gas HCO3 39 mmol/L (22-26) 40 mmol/L (22-26) Blood Gas Base Excess 8.0 mmol/L (-2-2) 5.8 mmol/L (-2-2) Blood Gas Oxygen Saturation 93 % (90-100) 59 % (90-100) Arterial Blood pH 7.04 (7.380-7.420) 6.86 (7.380-7.420) Arterial Blood Partial Pressure CO2 151 mmHg (38-42) 235 mmHg (38-42) Arterial Blood Partial Pressure O2 113 mmHG (61-120) 56 mmHG (61-120) Arterial Blood Oxygen Content 19.5 Vol % (12.0-20.0) 12.3 Vol % (12.0-20.0) Arterial Blood Carboxyhemoglobin 1.2 % (0-4) 1.0 % (0-4) Arterial Blood Methemoglobin 0.7 % (0-2) 1.0 % (0-2) Blood Gas Hemoglobin 14.7 G/DL (12.0-16.0) 14.8 G/DL (12.0-16.0) Oxygen Delivery Device BIPAP BIPAP Blood Gas Ventilator Setting IP15/EPAP5 IPAP18/EPAP5 Blood Gas Inspired Oxygen 70 % 70 % Result Diagram: 09/14/17 2156 09/15/17 0744 Microbiology Microbiology Date/Time Source Procedure Growth Status 09/14/17 21:56 Blood Peripheral Aerobic Blood Culture - Preliminary NO GROWTH IN 1 DAY Resulted 09/14/17 21:56 Blood Peripheral Anaerobic Blood Culture - Preliminary NO GROWTH IN 1 DAY Resulted 09/14/17 21:40 Blood Peripheral Aerobic Blood Culture - Preliminary NO GROWTH IN 1 DAY Resulted 09/14/17 21:40 Blood Peripheral Anaerobic Blood Culture - Preliminary NO GROWTH IN 1 DAY Resulted Imaging Last Impressions Chest CT 09/15/17 0000 Signed Impressions: Service Date/Time: Friday, September 15, 2017 10:48 - CONCLUSION: Large right pleural effusion with compressive atelectasis /consolidation right lower lobe. Trace left pleural effusion. Cardiomegaly with coronary calcifications. Ayan Dickens MD FACR Chest X-Ray [id number]/14/[id number] Signed Impressions: Service Date/Time: Thursday, September 14, 2017 22:08 - CONCLUSION: 1. Cardiomegaly. 2. Increased density at the right base representing a right effusion and some accompanying atelectasis or consolidation. Armen Kay MD Head CT 09/14/17 0000 Signed Impressions: Service Date/Time: Friday, September 15, 2017 00:27 - CONCLUSION: No acute disease. Old lacunar infarcts on the left side and within the right side of the angelique. Austen Lui MD Patient/Family Conference Present at Family Conference: Spoke with patient's and Sister at bedside. They have requested a palliative consult and requested to have the BiPAP mask removed and comfort medications given to allow the patient to pass naturally. This was discussed with the attending physician, Dr. Gaxiola, as well as a consulting physician, Dr. Ashley, who evaluated the patient and agree with the assessment of allowing the patient to pass comfortably and naturally of a terminal disease, as appears imminent. Consents were signed and comfort medications ordered. . Family Conference Location: Bedside Issues Discussed: * Palliative care role, purpose, approach * Additional medical, psychosocial, and spiritual history * Patients general health, functional status, and cognitive changes in the months leading up to the current hospitalization * Patient/family understanding of the current medical problems * Patient/family understanding of prognosis * Patients goals of care as best understood from advance directives and/or conversations and/or values * Current medical treatment options and benefits/burdens of those options * Likely scenarios comparing ongoing aggressive care with a transition to comfort measures only * Questions answered to the best of my ability * Palliative care contact information provided Assessment and Plan Disease Oriented Problem List: (1) COPD with acute exacerbation (2) Permanent atrial fibrillation Symptom Scale: (1) Dyspnea and respiratory abnormalities (2) Anxiety Pertinent Non-Medical Issues Psychosocial:He was born in [facility], [place] and moved to [place] at age 8. 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 He has been to his [employer] for over 40 years. He has 3 children, Genesis, Ck and Calivn. Spiritual: Personal federal mediation commissioner at bedside Legal:no issues. Ethical issues impacting care: None Prognosis His prognosis is very poor. His breathing is labored and the family states that he would not want to continue this aggressive treatment with no significant hope of meaningful recovery. They have requested withdrawal of life support. BiPAP mask has been removed. is expected to be imminent. Code Status: No Code Plan PLAN: Legal decision maker: Patient is not capacitated to make decisions. His is his legal proxy by [place] statutes. Goals: Comfort CODE STATUS: DNR SYMPTOMS: * Dyspnea: His breathing is labored and he is requiring BiPAP to maintain even a substandard oxygen saturation. Family is requesting withdrawal of BiPAP support. Morphine and Ativan have been ordered for dyspnea, air hunger and comfort. 1 mg IV Ativan, previously ordered by attending, was given by bedside nurse, pending pharmacy approval of * Anxiety: Expected side effect of withdrawal would be anxiety of air hunger. Ativan and morphine have been entered under a withdrawal protocol for treatment and previously ordered dose given STAT. Summary: This is a 76-year-old male with end-stage COPD, now requiring BiPAP with significant hypercarbia and hypoxia. Family is requesting to remove life support and allow patient to pass naturally with comfort medications. Consent forms have been completed and withdrawal comfort meds entered per the family's request. is expected to be imminent. Palliative care will continue to follow the patient during hospital course as condition evolves, to assist patient/decision-maker with understanding of their medical conditions, weighing benefits/burdens of treatment options, for clarification of goals of treatment. Additionally will assist with any symptoms of palliative concern. . Thank you for the opportunity to participate in the care of Mr. Prescott. Attestation To help prompt me to consider important information that might be impacting today's encounter and assessment, information from prior notes written by myself or my colleagues may have been "brought forward" into today's note. My signature on this note, however, is an attestation that I personally performed the exam, history, and/or decision-making noted today, and, unless otherwise indicated, the interactions with patient, family, and staff as well as the review of records all occurred today. I also attest that the listed assessment and stated plan reflect my best clinical judgment today based on the combination of historical information, prior notes, and today's exam/ interactions. When time spent is documented, it refers only to time spent today by the signer, or if indicated, combined time spent today by collaborating physician/nurse practitioner. . Bernice Cameron September 15, 2017 17:51
[2017-09-15] MEDS ORDERED: MORPHINE SULFATE 4 MG/ML INJ IV PUSH SCH (18:00)
[2017-09-15] MEDS ORDERED: MORPHINE SULFATE 8 MG/ML INJ IV PUSH PRN (18:15)
[2017-09-15] MEDS ORDERED: MORPHINE SULFATE 4 MG/ML INJ IV PUSH PRN (18:15)
[2017-09-15] MEDS ORDERED: ACETAMINOPHEN 650 MG SUPP RECTAL PRN (18:15)
[2017-09-15] MEDS ORDERED: FUROSEMIDE 20 MG/2 ML VIAL IV PUSH PRN (18:15)
[2017-09-15] MEDS ORDERED: LORazepam 2 MG/ML VIAL IV PUSH SCH (20:00)
--- NOTE | 2017-09-16 08:12 | DEATH SUM ---
Summary Demographics Date Pronounced : September 15, 2017 Time Of : 1757 Pronounced By: Yesika Santana RN Preliminary Cause of : Respiratory arrest Terrell Gaxiola MD September 16, 2017 08:12
--- NOTE | 2017-09-16 08:14 | HHI.DS ---
Summary Note Date of : September 15, 2017 Time Of : 1757 Admission Date September 15, 2017 at 01:11 Admitting Diagnosis CHF exacerbation, CoPD exacerbation Diagnosis at Time of : (1) COPD with acute exacerbation ICD Code: J44.1 - Chronic obstructive pulmonary disease with (acute) exacerbation Diagnosis: Principal Procedures none Brief History 76-year-old male with a history of CAD, COPD, stroke in May, CO in May who is brought in by due to progressive worsening of malaise, generalized weakness, gradual worsening of slurred speech for the past 2 months. Patient fell several times over the past few weeks, and has gone to the point where he is too weak to lift himself up out of chair. says he has been very thirsty. Denies any fevers or chills. Bilateral lower extremity edema has been worsening over the past several months. Patient reportedly denies any chest pain. History obtained from as patient is on BiPAP and very somnolent. CBC/BMP: 09/14/17 2156 09/15/17 0744 Significant Findings Laboratory Tests Test 09/14/17 21:56 09/15/17 00:15 09/15/17 02:09 09/15/17 07:44 Neutrophils (%) (Auto) 79.1 % (16.0-70.0) Monocytes (%) (Auto) 9.3 % (0.0-8.0) Neutrophils # (Auto) 7.9 TH/MM3 (1.8-7.7) Prothrombin Time 12.0 SEC (9.8-11.6) Blood Urea Nitrogen 19 MG/DL (7-18) Random Glucose 157 MG/DL (74-106) 161 MG/DL (74-106) Albumin 3.3 GM/DL (3.4-5.0) Alkaline Phosphatase 118 U/L (45-117) Aspartate Amino Transf (AST/SGOT) 14 U/L (15-37) Potassium Level 3.0 MEQ/L (3.5-5.1) Carbon Dioxide Level 33.9 MEQ/L (21.0-32.0) 34.3 MEQ/L (21.0-32.0) Estimat Glomerular Filtration Rate 58 ML/MIN (>89) 63 ML/MIN (>89) B-Type Natriuretic Peptide 470 PG/ML (0-100) Blood Gas HCO3 37 mmol/L (22-26) 36 mmol/L (22-26) Blood Gas Base Excess 11.0 mmol/L (-2-2) 10.6 mmol/L (-2-2) Blood Gas Oxygen Saturation 83 % (90-100) Arterial Blood pH 7.36 (7.380-7.420) Arterial Blood Partial Pressure CO2 66 mmHg (38-42) 59 mmHg (38-42) Arterial Blood Partial Pressure O2 57 mmHG (61-120) Test 09/15/17 11:18 09/15/17 12:22 Blood Gas HCO3 39 mmol/L (22-26) 40 mmol/L (22-26) Blood Gas Base Excess 8.0 mmol/L (-2-2) 5.8 mmol/L (-2-2) Arterial Blood pH 7.04 (7.380-7.420) 6.86 (7.380-7.420) Arterial Blood Partial Pressure CO2 151 mmHg (38-42) 235 mmHg (38-42) Blood Gas Oxygen Saturation 59 % (90-100) Arterial Blood Partial Pressure O2 56 mmHG (61-120) Imaging Last Impressions Chest CT 09/15/17 0000 Signed Impressions: Service Date/Time: Friday, September 15, 2017 10:48 - CONCLUSION: Large right pleural effusion with compressive atelectasis /consolidation right lower lobe. Trace left pleural effusion. Cardiomegaly with coronary calcifications. Ayan Dickens MD FACR Chest X-Ray 09/14/172152 Signed Impressions: Service Date/Time: Thursday, September 14, 2017 22:08 - CONCLUSION: 1. Cardiomegaly. 2. Increased density at the right base representing a right effusion and some accompanying atelectasis or consolidation. Armen Kay MD Head CT 09/14/17 0000 Signed Impressions: Service Date/Time: Friday, September 15, 2017 00:27 - CONCLUSION: No acute disease. Old lacunar infarcts on the left side and within the right side of the angelique. Austen Lui MD Hospital Course Acute on chronic Hypercapnic hypoxic respiratory failure. Ct to deteriorate on BiPAP COPD exacerbation on IV Levaquin, Solu-Medrol, nebulizations and oxygen CHF exacerbation. Large right pleural effusion thoracentesis ordered. CHF education, I/O and monitor weight. Restarted Lasix. IR for thoracentesis Hypokalemia. Replace follow-up repeat BMP and magnesium Accelerated hypertension. Improving continue home medications RN to verify NGT for tube feeding and med administration. Multiple medical conditions of CVA, A. fib, coronary artery disease status post CO and diabetes mellitus. Continue outpatient medications as appropriate DVT prophylaxis with SCD and Lovenox Poor prognosis. requested comfort measures with withdrawal of support and was enrolled to Hospice. Patient Terrell Gaxiola MD September 16, 2017 08:14
[2017-09-16] MEDS ORDERED: ASPIRIN 81 MG CHEW TAB CHEW SCH (09:00)
== END 2017-09-15 20:00 | disposition expired | DRG 190 ==
LOC: NEPE 20:47 → NEDA 09-15 01:11 → NEDH 09-15 05:11 → HIME 09-15 15:56
PROVIDERS: ADMIT Internal Medicine; ATTEND Internal Medicine
PROC: 5A09357 Assistance with Respiratory Ventilation, Less than 24 Consecutive Hours, Continuous Positive Airway Pressure (ICD-10-PCS; principal; 2017-09-15)
DX: J44.1 Chronic obstructive pulmonary disease with (acute) exacerbation (principal); J96.21 Acute and chronic respiratory failure with hypoxia; J96.22 Acute and chronic respiratory failure with hypercapnia; I11.0 Hypertensive heart disease with heart failure; I50.9 Heart failure, unspecified; I25.2 Old myocardial infarction; I25.10 Atherosclerotic heart disease of native coronary artery without angina pectoris; E87.6 Hypokalemia; E11.9 Type 2 diabetes mellitus without complications; Z79.84 Long term (current) use of oral hypoglycemic drugs; I48.2 Chronic atrial fibrillation; Z79.02 Long term (current) use of antithrombotics/antiplatelets; Z66 Do not resuscitate; Z51.5 Encounter for palliative care; H91.90 Unspecified hearing loss, unspecified ear; F17.210 Nicotine dependence, cigarettes, uncomplicated; I65.29 Occlusion and stenosis of unspecified carotid artery; E66.3 Overweight; Z68.34 Body mass index [BMI] 34.0-34.9, adult; E78.5 Hyperlipidemia, unspecified; Z86.73 Personal history of transient ischemic attack (TIA), and cerebral infarction without residual deficits; Z85.46 Personal history of malignant neoplasm of prostate
CPT/HCPCS: 36600; 70450; 71045; 71250; 80048; 80053; 82550; 82805; 83605; 83735; 83880; 84484; 85025; 85610; 85730; 87040; 93005; 94640; 94664; 95819; J0360; J1650; J1815; J1940; J1956; J2060; J2920; J2930; J3480